=== PATIENT | female | born 1995 | race Caucasian/White ===

== ENCOUNTER → 2018-05-22 07:07 | Outpatient (CLI) | payer OTHER, SELFPAY ==
[2018-05-22 14:31] LABS: Basophils % 0.4 % (0.1-2.0); Eosinophils # 0.1 K/mm3 (0.0-0.4); Eosinophils % 1.2 % (0.1-12.0); Hematocrit 41.4 % (37.0-47.0); Lymphocytes # 1.2 K/mm3 (0.7-4.5); Mean Corpuscular HGB Conc 31.4 g/dL (31.8-35.4); Mean Corpuscular Hemoglobin 26.9 pg (27.0-31.2); Mean Corpuscular Volume 85.9 fl (81-99); Mean Platelet Volume 8.8 fl (7.4-10.4); Monocytes # 0.4 K/mm3 (0.1-1.0); Monocytes % 5.9 % (1.7-9.3); Neutrophils # 4.8 K/mm3 (1.8-7.8); Neutrophils % 73.5 % (37.0-80.0); Platelet Count 226 K/mm3 (142-424); Red Blood Count 4.82 M/mm3 (4.20-5.40); White Blood Count 6.5 K/mm3 (4.8-10.8)
[2018-05-22 14:43] LABS: Alanine Aminotransferase 27 U/L (12-78); Albumin/Globulin Ratio 1.4 (1.1-1.8); Alkaline Phosphatase 86 U/L (46-116); Anion Gap 13.6 mEq/L (5-15); Aspartate Amino Transferase 13 U/L (15-37); Bilirubin,Total 0.3 mg/dL (0.2-1.0); Blood Urea Nitrogen 9 mg/dL (7-18); Calcium 8.6 mg/dL (8.5-10.1); Carbon Dioxide 27 mmol/L (21.0-32.0); Chloride 105 mmol/L (98-107); Chol/HDL Ratio 3.3 (1-3.5); Cholesterol 143 mg/dL (140-200); Creatinine,Serum 0.65 mg/dL (0.55-1.02); Estimated Glomerular Filt Rate 114 ml/min (>60); Free Thyroxine Index 2.5 ug/dL (5.93-13.13); GFR (African American) 138 ML/MIN (>60); Globulin 2.9 gm/dl (1.3-3.2); Glucose 90 mg/dL (74-106); HDL Cholesterol 43 mg/dL (29-89); LDL Cholesterol 83 mg/dL (0-130); Potassium 3.6 mmoL/L (3.5-5.1); Sodium 142 mmol/L (136-145); T4 (Thyroxine) 7.7 ug/dl (4.7-13.3); Total Protein,Serum 6.9 gm/dL (6.4-8.2); Triglycerides 85 mg/dL (30-200); Triiodothryronine (T3) Uptake 32 % (31-39); VLDL Cholesterol 17 mg/dL (0-40)
[2018-05-22 15:13] LABS: Thyroid Stimulating Hormone 2.42 uIU/ml (0.358-3.740)
[2018-05-22 17:34] LABS: Hemoglobin A1C 5.4 % (0.0-7.0)
[2018-05-23 18:43] LABS: LH 5.4 mIU/mL (.)
[2018-05-23 18:44] LABS: FSH 4.7 mIU/mL (.); Vitamin B12 352 pg/mL (232-1245); Vitamin D 25 Hydroxy 12.5 ng/mL (30.0-100.0)
== END ==
PROVIDERS: PCP Internal Medicine Adolescent Medicine; Visit Provider Internal Medicine Adolescent Medicine
DX: Z00.00 Encounter for general adult medical examination without abnormal findings (principal); G44.019 Episodic cluster headache, not intractable; H53.2 Diplopia; R73.9 Hyperglycemia, unspecified
CPT/HCPCS: 36415; 80053; 80061; 82607; 82652; 83001; 83002; 83036; 84436; 84443; 84479; 85025

== ENCOUNTER → 2018-09-22 08:47 | Outpatient (POV) | payer OTHER, SELFPAY | PROVIDERS: Visit Provider Dermatology | DX: Z00.00 Encounter for general adult medical examination without abnormal findings (principal) ==

== ENCOUNTER → 2019-04-28 07:06 | Outpatient (CLI) | payer OTHER, SELFPAY ==
[2019-04-28 13:47] LABS: HCG Qualitative, Serum Negative (Negative)
[2019-04-28 13:54] LABS: Basophils % 0.5 % (0.1-2.0); Eosinophils # 0.1 K/mm3 (0.0-0.4); Eosinophils % 1.7 % (0.1-12.0); Hematocrit 39.6 % (37.0-47.0); Hemoglobin 12.1 g/dL (12.2-16.2); Lymphocytes # 2.1 K/mm3 (0.7-4.5); Mean Corpuscular HGB Conc 30.5 g/dL (31.8-35.4); Mean Corpuscular Hemoglobin 26.3 pg (27.0-31.2); Mean Platelet Volume 8.6 fl (7.4-10.4); Monocytes # 0.4 K/mm3 (0.1-1.0); Monocytes % 5.6 % (1.7-9.3); Neutrophils # 4.5 K/mm3 (1.8-7.8); Neutrophils % 63.1 % (37.0-80.0); Platelet Count 237 K/mm3 (142-424); Red Blood Count 4.61 M/mm3 (4.20-5.40); Red Cell Distribution Width 13.8 % (11.5-17.5); White Blood Count 7.1 K/mm3 (4.8-10.8)
[2019-04-28 14:22] LABS: Alanine Aminotransferase 11 U/L (12-78); Albumin Level 3.4 gm/dL (3.4-5.0); Albumin/Globulin Ratio 1.1 (1.1-1.8); Alkaline Phosphatase 84 U/L (46-116); Aspartate Amino Transferase 3 U/L (15-37); Bilirubin,Total 0.2 mg/dL (0.2-1.0); Blood Urea Nitrogen 8 mg/dL (7-18); Calcium 8.4 mg/dL (8.5-10.1); Carbon Dioxide 25 mmol/L (21.0-32.0); Chloride 104 mmol/L (98-107); Chol/HDL Ratio 3.4 (1-3.5); Cholesterol 161 mg/dL (140-200); Creatinine,Serum 0.62 mg/dL (0.55-1.02); Estimated Glomerular Filt Rate 119 ml/min (>60); Free Thyroxine Index 3.1 ug/dL (5.93-13.13); GFR (African American) 144 ML/MIN (>60); Globulin 3.1 gm/dl (1.3-3.2); Glucose 86 mg/dL (74-106); HDL Cholesterol 48 mg/dL (29-89); LDL Cholesterol 86 mg/dL (0-130); Sodium 139 mmol/L (136-145); T4 (Thyroxine) 11.9 ug/dl (4.7-13.3); Thyroid Stimulating Hormone 5.58 uIU/ml (0.358-3.740); Total Protein,Serum 6.5 gm/dL (6.4-8.2); Triglycerides 135 mg/dL (30-200); Triiodothryronine (T3) Uptake 26 % (31-39); VLDL Cholesterol 27 mg/dL (0-40)
[2019-04-28 14:49] LABS: Hemoglobin A1C 5.4 % (0.0-7.0)
[2019-04-29 14:28] LABS: FSH 2.5 mIU/mL (.); LH 5.2 mIU/mL (.)
[2019-05-01 18:56] LABS: Testosterone,Free 2.7 pg/mL (0.0-4.2)
== END ==
PROVIDERS: PCP Internal Medicine Adolescent Medicine; Visit Provider Internal Medicine Adolescent Medicine
DX: N93.8 Other specified abnormal uterine and vaginal bleeding (principal); N92.1 Excessive and frequent menstruation with irregular cycle; R73.9 Hyperglycemia, unspecified
CPT/HCPCS: 36415; 80053; 80061; 83001; 83002; 83036; 84402; 84403; 84436; 84443; 84479; 84703; 85025

== ENCOUNTER → 2019-07-20 10:01 | Outpatient (CLI) | payer OTHER, SELFPAY ==
[2019-07-20 14:07] LABS: Basophils # 0.1 K/mm3 (0-0.2); Basophils % 0.5 % (0.1-2.0); Eosinophils # 0.1 K/mm3 (0.0-0.4); Eosinophils % 1.1 % (0.1-12.0); Hematocrit 40.3 % (37.0-47.0); Hemoglobin 13.2 g/dL (12.2-16.2); Lymphocytes # 1.8 K/mm3 (0.7-4.5); Lymphocytes % 21.5 % (10-50); Mean Corpuscular HGB Conc 32.8 g/dL (31.8-35.4); Mean Corpuscular Hemoglobin 27.8 pg (27.0-31.2); Mean Corpuscular Volume 84.7 fl (81-99); Mean Platelet Volume 8.4 fl (7.4-10.4); Monocytes # 0.4 K/mm3 (0.1-1.0); Monocytes % 4.6 % (1.7-9.3); Neutrophils # 6.1 K/mm3 (1.8-7.8); Neutrophils % 72.4 % (37.0-80.0); Platelet Count 250 K/mm3 (142-424); Red Blood Count 4.76 M/mm3 (4.20-5.40); Red Cell Distribution Width 13.3 % (11.5-17.5); White Blood Count 8.4 K/mm3 (4.8-10.8)
[2019-07-20 14:08] LABS: Alanine Aminotransferase 13 U/L (12-78); Albumin Level 3.7 gm/dL (3.4-5.0); Albumin/Globulin Ratio 1.2 (1.1-1.8); Alkaline Phosphatase 86 U/L (46-116); Anion Gap 16.8 mEq/L (5-15); Aspartate Amino Transferase 6 U/L (15-37); Bilirubin,Total 0.3 mg/dL (0.2-1.0); Blood Urea Nitrogen 6 mg/dL (7-18); Calcium 8.5 mg/dL (8.5-10.1); Carbon Dioxide 23 mmol/L (21.0-32.0); Chloride 104 mmol/L (98-107); Creatinine,Serum 0.59 mg/dL (0.55-1.02); Estimated Glomerular Filt Rate 126 ml/min (>60); Free Thyroxine Index 3.9 ug/dL (5.93-13.13); GFR (African American) 153 ML/MIN (>60); Globulin 3.1 gm/dl (1.3-3.2); Glucose 86 mg/dL (74-106); Potassium 3.8 mmoL/L (3.5-5.1); Sodium 140 mmol/L (136-145); T4 (Thyroxine) 13.4 ug/dl (4.7-13.3); Thyroid Stimulating Hormone 1.65 uIU/ml (0.358-3.740); Total Protein,Serum 6.8 gm/dL (6.4-8.2); Triiodothryronine (T3) Uptake 29 % (31-39)
== END ==
PROVIDERS: Visit Provider Internal Medicine Adolescent Medicine
DX: N92.1 Excessive and frequent menstruation with irregular cycle (principal); E03.9 Hypothyroidism, unspecified
CPT/HCPCS: 36415; 80053; 84436; 84443; 84479; 85025

== ENCOUNTER → 2021-06-21 11:32 | Outpatient (CLI) | payer BC, SELFPAY ==
[2021-06-21 12:02] LABS: Basophils # 0.1 K/mm3 (0-0.2); Basophils % 0.8 % (0.1-2.0); Eosinophils # 0.1 K/mm3 (0.0-0.4); Eosinophils % 0.8 % (0.1-12.0); Hematocrit 40.7 % (37.0-47.0); Hemoglobin 12.8 g/dL (12.2-16.2); Lymphocytes # 1.7 K/mm3 (0.7-4.5); Lymphocytes % 16.6 % (10-50); Mean Corpuscular HGB Conc 31.6 g/dL (31.8-35.4); Mean Corpuscular Hemoglobin 26.5 pg (27.0-31.2); Mean Corpuscular Volume 83.9 fl (81-99); Mean Platelet Volume 10.3 fl (7.4-10.4); Monocytes # 0.5 K/mm3 (0.1-1.0); Monocytes % 4.8 % (1.7-9.3); Platelet Count 274 K/mm3 (142-424); Red Blood Count 4.85 M/mm3 (4.20-5.40); Red Cell Distribution Width 14.5 % (11.5-17.5); White Blood Count 10.4 K/mm3 (4.8-10.8)
[2021-06-21 12:23] LABS: Alanine Aminotransferase 8 U/L (12-78); Albumin Level 4.4 g/dl (3.5-5.0); Albumin/Globulin Ratio 1.8 (1.1-1.8); Alkaline Phosphatase 107 U/L (38-126); Anion Gap 11.3 mEq/L (5-15); Aspartate Amino Transferase 19 U/L (14-36); Bilirubin,Total 0.3 mg/dl (0.2-1.3); Blood Urea Nitrogen 9 mg/dl (7-17); Calcium 9.1 mg/dl (8.4-10.2); Carbon Dioxide 27 mmol/L (22.0-30.0); Chloride 105 mmol/L (98-107); Estimated Glomerular Filt Rate 102 ml/min (>60); GFR (African American) 123 ML/MIN (>60); Globulin 2.4 g/dL (1.3-3.2); Glucose 96 mg/dl (74-100); Potassium 4.3 mmoL/L (3.5-5.1); Sodium 139 mmol/L (136-145); Total Protein,Serum 6.8 g/dl (6.3-8.2)
[2021-06-21 12:39] LABS: Free T4 (Free Thyroxine) 1.16 ng/dl (0.78-2.19)
[2021-06-21 12:53] LABS: Thyroid Stimulating Hormone 1.59 uIU/mL (0.465-4.68)
== END ==
PROVIDERS: Visit Provider Nurse Practitioner Family
DX: E03.9 Hypothyroidism, unspecified (principal); F53.0 Postpartum depression
CPT/HCPCS: 80053; 84439; 84443; 85025

== ENCOUNTER 2021-08-13 18:50 | Emergency (ER) | payer BC, SELFPAY ==
[2021-08-13 18:52] VITALS: RESP 18; TEMP 36.6; O2SAT 99; BMI 36.5
--- NOTE | 2021-08-13 19:04 | [facility].EDGENADL ---
ED Disposition Condition on Discharge: Good - Critical Care Critical Care Time: No <Antolin Carey - Last Filed: 08/13/21 19:51> <Octavio Barnett - Last Filed: 08/13/21 19:56> Clinical Impression: Gastroenteritis Disposition: Still a Patient Referrals: Seth Grimaldo MD [Primary Care Provider] - Attestation: On 08/13/21, the high probability of a clinically significant, sudden or life threatening deterioration of the following system(s) required my full and direct attention, intervention and personal management. The time I documented below is in addition to time spent performing reported procedures but includes the following listed in this critical care notation. Medical Decision Making - Brent Inquiry Pt receiving controlled substance: No - Lab Data Result diagrams: 08/13/21 19:05 08/13/21 19:05 <Antolin Carey - Last Filed: 08/13/21 19:51> - Lab Data Result diagrams: 08/13/21 19:05 08/13/21 19:05 <Octavio Barnett - Last Filed: 08/13/21 19:56> Vital Signs: 08/13/21 18:52 Temperature 97.8 F Temperature Source Oral Respiratory Rate 18 02 Sat by Pulse Oximetry 99 Oxygen Delivery Method Room Air - Lab Data Lab Results 08/13/21 19:05: WBC 21.0 H*, RBC 5.63 H, Hgb 14.7, Hct 44.8, MCV 79.5 L, MCH 26.1 L, MCHC 32.8, RDW 15.0, Plt Count 307, MPV 8.6, Neut % (Auto) 92.2 H, Lymph % (Auto) 3.6 L, [place] % (Auto) 3.5, Eos % (Auto) 0.2, Baso % (Auto) 0.5, Neut # (Auto) 19.3 H, Lymph # (Auto) 0.8, [place] # (Auto) 0.7, Eos # (Auto) 0.1, Baso # (Auto) 0.1 08/13/21 19:05: Sodium 137, Potassium 3.9, Chloride 104, Carbon Dioxide 19 L, Anion Gap 17.9 H, BUN 13, Creatinine 0.60, Estimated Creat Clear 246, Estimated GFR 122, Est GFR ( Amer) 147, Glucose 147 H, Calcium 9.5, Total Bilirubin 0.5, AST 24, ALT 20, Alkaline Phosphatase 115, Total Protein 7.9, Albumin 5.0, Globulin 2.9, Albumin/Globulin Ratio 1.7 Orders (Tests/Meds): ED MEDICATIONS Generic Name Dose Route Start Last Admin Trade Name Daltonq PRN Reason Stop Dose Admin Sodium Chloride 1,000 mls @ 999 mls/hr 08/13/21 19:15 08/13/21 19:07 Sod Chlor 0.9% 1000ml Bag IV 08/13/21 20:15 999 mls/hr .Q1H1M CHARLIE Administration Sodium Chloride 1,000 mls @ 999 mls/hr 08/13/21 19:45 Sod Chlor 0.9% 1000ml Bag IV 08/13/21 20:45 .Q1H1M CHARLIE Sodium Chloride 10 ml 08/13/21 19:01 Sodium Chloride 0.9% 10ml Flush Syringe IV 08/14/21 07:01 NEEDED PRN Maintain IV Site Sodium Chloride 10 ml 08/13/21 19:36 Sodium Chloride 0.9% 10ml Flush Syringe IV 08/14/21 07:36 NEEDED PRN Maintain IV Site Discontinued Medications Generic Name Dose Route Start Last Admin Trade Name Freq PRN Reason Stop Dose Admin Metoclopramide HCl 10 mg 08/13/21 19:00 08/13/21 19:08 Metoclopramide Hcl 10mg/2ml Vial IVP 08/13/21 19:01 10 mg ONCE ONE Administration Ondansetron HCl 8 mg 08/13/21 18:59 08/13/21 19:08 Ondansetron 4mg/2ml Vial IV 08/13/21 19:00 8 mg ONCE ONE Administration ORDERS Category Date Time Status CBC w/Auto Diff [Complete Blood Count Auto Diff] Stat Lab 08/13/21 19:05 Results Covid-19 Nasal PCR ([facility]) Routine Lab 08/13/21 19:01 Ordered Lactic Acid Stat Lab 08/13/21 19:38 Received Urinalysis-Acute [Urinalysis and Microscopic] Stat Lab 08/13/21 19:27 Received General Adult HPI - General Mode of Arrival: Ambulatory Source of Information: Patient - History of Present Illness Onset (ago): hour(s) Radiation: non-radiation Severity: moderate Consistency: constant, intermittent Relieving factors: none Exacerbating factors: eating Associated symptoms: denies other symptoms <Antolin Carey - Last Filed: 08/13/21 19:51> <Octavio Barnett - Last Filed: 08/13/21 19:56> - General Stated complaint: vomiting,weak Time Seen by Provider: 08/13/21 19:04 - History of Present Illness HPI narrative: n/v/d (Antolin Carey) - Related Data Home
[2021-08-13 19:13] LABS: Basophils # 0.1 K/mm3 (0-0.2); Basophils % 0.5 % (0.1-2.0); Eosinophils # 0.1 K/mm3 (0.0-0.4); Eosinophils % 0.2 % (0.1-12.0); Hematocrit 44.8 % (37.0-47.0); Hemoglobin 14.7 g/dL (12.2-16.2); Lymphocytes # 0.8 K/mm3 (0.7-4.5); Lymphocytes % 3.6 % (10-50); Mean Corpuscular HGB Conc 32.8 g/dL (31.8-35.4); Mean Corpuscular Hemoglobin 26.1 pg (27.0-31.2); Mean Corpuscular Volume 79.5 fl (81-99); Mean Platelet Volume 8.6 fl (7.4-10.4); Monocytes # 0.7 K/mm3 (0.1-1.0); Monocytes % 3.5 % (1.7-9.3); Neutrophils # 19.3 K/mm3 (1.8-7.8); Neutrophils % 92.2 % (37.0-80.0); Platelet Count 307 K/mm3 (142-424); Red Blood Count 5.63 M/mm3 (4.20-5.40)
[2021-08-13 19:24] VITALS: BP 103/70; PULSE 104; RESP 18; O2SAT 98
[2021-08-13 19:25] LABS: MANUAL DIFFERENTIAL MANUAL DIFFERENTIAL (MANUAL DIFF)
[2021-08-13 19:34] LABS: Alanine Aminotransferase 20 U/L (12-78); Albumin/Globulin Ratio 1.7 (1.1-1.8); Alkaline Phosphatase 115 U/L (38-126); Anion Gap 17.9 mEq/L (5-15); Aspartate Amino Transferase 24 U/L (14-36); Bilirubin,Total 0.5 mg/dl (0.2-1.3); Blood Urea Nitrogen 13 mg/dl (7-17); Calcium 9.5 mg/dl (8.4-10.2); Carbon Dioxide 19 mmol/L (22.0-30.0); Chloride 104 mmol/L (98-107); Creatinine Clearance Estimated 246 mL/min (50-200); Estimated Glomerular Filt Rate 122 ml/min (>60); GFR (African American) 147 ML/MIN (>60); Globulin 2.9 g/dL (1.3-3.2); Glucose 147 mg/dl (74-100); Potassium 3.9 mmoL/L (3.5-5.1); Sodium 137 mmol/L (136-145); Total Protein,Serum 7.9 g/dl (6.3-8.2)
[2021-08-13 19:49] LABS: Microscopic, Urine URINE MICROSCOPIC (MICROSCOPIC)
[2021-08-13 19:58] LABS: Lactic Acid 1.3 mmol/L (0.7-2.1)
[2021-08-13 20:05] LABS: Appearance,Urine CLEAR (Clear); Blood, Urine Negative (Negative); Color,Urine YELLOW (Yellow); Glucose,Urine (UA) Negative (Negative); Ketones,Urine Negative (Negative); Leukocyte Esterase,Urine Negative (Negative); Nitrate,Urine Negative (Negative); PH,Urine 5.5 (5.0-8.5); Protein,Urine 1+ (Negative); Specific Gravity, Urine >= 1.030 (1.005-1.030); Urobilinogen,Urine 0.2 EU/dl (0.2)
[2021-08-13 20:08] LABS: Bilirubin,Urine Negative (Negative)
[2021-08-13 20:13] LABS: Bacteria,Urine 1+ /lpf
[2021-08-13 20:26] LABS: Lymphocytes % 6 % (10-50); Microcytosis 1+; Monocytes % 7 % (2-9); Neutrophils % 86 % (42-76); Platelet Estimate Normal; Spherocytes 1+; Total Cells Counted 100
[2021-08-13 21:44] VITALS: BP 123/87; PULSE 103; RESP 18; TEMP 36.9; O2SAT 96
[2021-08-13 21:59] VITALS: BP 124/83; PULSE 91; RESP 17; TEMP 36.8
== END 2021-08-13 22:03 | disposition still patient (30) ==
PROVIDERS: Emergency Provider Emergency Medicine; PCP Internal Medicine Adolescent Medicine
DX: K52.9 Noninfective gastroenteritis and colitis, unspecified (principal); Z88.2 Allergy status to sulfonamides
CPT/HCPCS: 80053; 81001; 83605; 85007; 85025; 96365; 96366; 96375; 99282; J2405

== ENCOUNTER → 2022-08-05 15:44 | Outpatient (CLI) | payer BC, SELFPAY ==
[2022-08-05 16:59] LABS: Hemoglobin 12.2 g/dL (12.2-16.2); Mean Corpuscular HGB Conc 33.8 g/dL (31.8-35.4); Mean Corpuscular Hemoglobin 28.6 pg (27.0-31.2); Mean Corpuscular Volume 84.6 fl (81-99); Red Blood Count 4.26 M/mm3 (4.20-5.40); White Blood Count 11.9 K/mm3 (4.8-10.8)
[2022-08-05 17:00] LABS: Basophils # 0.1 K/mm3 (0-0.2); Basophils % 0.4 % (0.1-2.0); Eosinophils % 0.4 % (0.1-12.0); Lymphocytes # 2.1 K/mm3 (0.7-4.5); Lymphocytes % 17.4 % (10-50); Mean Platelet Volume 8.8 fl (7.4-10.4); Monocytes # 0.6 K/mm3 (0.1-1.0); Monocytes % 4.8 % (1.7-9.3); Neutrophils # 9.2 K/mm3 (1.8-7.8); Platelet Count 228 K/mm3 (142-424); Red Cell Distribution Width 14.8 % (11.5-17.5)
[2022-08-05 17:16] LABS: Chloride 103 mmol/L (98-107); Potassium 4.3 mmoL/L (3.5-5.1); Sodium 137 mmol/L (136-145)
[2022-08-05 17:19] LABS: Alanine Aminotransferase 15 U/L (12-78); Albumin/Globulin Ratio 1.5 (1.1-1.8); Alkaline Phosphatase 82 U/L (38-126); Anion Gap 13.3 mEq/L (5-15); Aspartate Amino Transferase 16 U/L (14-36); Bilirubin,Total 0.3 mg/dl (0.2-1.3); Blood Urea Nitrogen 5 mg/dl (7-17); Carbon Dioxide 25 mmol/L (22.0-30.0); Estimated Glomerular Filt Rate 149 ml/min (>60); GFR (African American) 180 ML/MIN (>60); Globulin 2.7 g/dL (1.3-3.2); Glucose 86 mg/dl (74-100); Total Protein,Serum 6.7 g/dl (6.3-8.2)
[2022-08-05 17:20] LABS: Magnesium 1.8 mg/dl (1.6-2.3)
[2022-08-05 17:50] LABS: Thyroid Stimulating Hormone 3.26 uIU/mL (0.465-4.68)
== END ==
PROVIDERS: PCP Internal Medicine Adolescent Medicine; Visit Provider Nurse Practitioner Family
DX: R06.02 Shortness of breath (principal); R00.2 Palpitations; R42 Dizziness and giddiness
CPT/HCPCS: 36415; 80053; 83735; 84443; 85025; 93225; 93226

== ENCOUNTER 2022-10-06 19:28 | Emergency (ER) | payer BC, SELFPAY ==
[2022-10-06 19:45] VITALS: BP 132/87; PULSE 112; RESP 20; TEMP 36.9; O2SAT 97; BMI 38.6
--- NOTE | 2022-10-06 19:56 | EXP.UTC ---
Discharge Plan Disposition Patient Disposition: Home, Self-Care Condition: Good Prescriptions Prescriptions: No Action levothyroxine 75 mcg tablet 75 mcg PO DAILY prenat.vits,pepito,[id number]-jlpm-xwwfn Tablet 1 tab PO DAILY Unisom (doxylamine) 25 mg tablet 25 mg PO HS PRN amoxicillin 500 mg tablet 500 mg PO TID Qty: 30 0RF Referrals Follow up/Referrals: Seth Grimaldo MD [Primary Care Provider] - See instructions Activity Restrictions/Add. Instructions Additional Instructions/Restrictions: No sign of a bacterial infection. Likely viral. Viruses can take 7-14 days to run their course. Nasal saline and bulb syringe or nose Deana to remove nasal drainage to help with nasal congestion. Hard to eat, drink, sleep with nasal congestion so important to keep this cleaned out. Monitor temp. Tylenol or Motrin as needed for pain or fever Encourage fluids, water, Gatorade, Powerade, Pedialyte if /toddler/child Warm salt water gargles Warm fluids Sore throat lozenges Sleep elevated Humidifier/vaporizer Follow-up immediately for new or worsening symptoms or no noticeable improvement over the next 48-72 hours. Clinical Impressions Clinical Impression: Upper respiratory infection Instructions Patient Instructions: DI for Viral Upper Respiratory Infection -- Adult Discharge ED Provider: Stuart ([facility])Neeraj [facility] [place] HPI General Stated complaint: fever body aches Mode of Arrival: Ambulatory Source of Information: Patient Limitations: No Limitations Time Seen by Provider: 10/06/22 19:56 History of Present Illness Provider Complaint: 26 yr old female who is 7 months presnets for sore throat, fever, body aches and chills that started today Related Data Home Medications Medication Instructions Recorded Confirmed doxylamine succinate 25 mg tablet 25 mg PO HS PRN 07/16/22 07/16/22 (Unisom (doxylamine)) levothyroxine 75 mcg tablet 75 mcg PO DAILY 07/16/22 07/16/22 prenat.vits,pepito,kif-wube-ihshe 1 tab PO DAILY 07/16/22 07/16/22 Previous Rx's Medication Instructions Recorded amoxicillin 500 mg tablet 500 mg PO TID #30 tabs 07/16/22 Allergies Allergy/AdvReac Type Severity Reaction Status Date / Time ASA (ASPIRIN) Allergy Mild I-HIVES Uncoded 07/16/22 09:14 SULFA (SULFONAMIDE) Allergy Mild I-HIVES Uncoded 07/16/22 09:14 [facility] Disclaimer: The information contained in this section may have been updated after the patient was seen, as this information can be updated by other users. 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) Smoking Status: Never smoker alcohol intake: never substance use type: denies use current occupational status: employed Travel in the last 8 weeks: None household members: spouse and children housing: house marital status: single ROS Obtained: Yes All systems reviewed & no additional complaints except as documented Constitutional Constitutional: Reports system reviewed and no additional complaints, except as documented, Reports as per HPI, Reports body ache, Reports chills and Reports fever(s) Eyes Eyes: Reports system reviewed and no additional complaints, except as documented ENT Ears, Nose, Mouth, and Throat: Reports system reviewed and no additional complaints, except as documented, Reports as per HPI and Reports sore throat Cardiovascular Cardiovascular: Reports system reviewed and no additional complaints, except as documented Respiratory Respiratory: Reports system reviewed and no additional complaints, except as documented Musculoskeletal Musculoskeletal: Reports system reviewed and no additional complaints, except as documented Integumentary/Breasts Skin/Breast: Report
[2022-10-06 20:07] VITALS: BP 132/87; PULSE 112; RESP 20; TEMP 36.9; O2SAT 97
[2022-10-06 20:08] LABS: UTC Influenza A Antigen Negative (Negative); UTC Strep Screen (Rapid) Negative (Negative)
[2022-10-06 20:09] LABS: UTC Influenza B Antigen Negative (Negative)
[2022-10-06 20:54] LABS: Adenovirus,PCR Not Detected (NotDetected); Bordetella Pertussis Not Detected (NotDetected); Chlamydophila Pneumoniae, PCR Not Detected (NotDetected); Coronavirus 19, PCR Not Detected (NotDetected); Coronavirus 229E Not Detected (NotDetected); Coronavirus NL63 Not Detected (NotDetected); Coronavirus OC43 Not Detected (NotDetected); Coronovirus HKU1,PCR Not Detected (NotDetected); Human Metapneumovirus Not Detected (NotDetected); Influenza A, PCR Not Detected (NotDetected); Influenza AH1, 2009 Not Detected (NotDetected); Influenza AH1, PCR Not Detected (NotDetected); Influenza AH3,PCR Not Detected (NotDetected); Influenza B, PCR Not Detected (NotDetected); Mycoplasma Pneumoniae, PCR Not Detected (NotDetected); Parainfluenza 1, PCR Not Detected (NotDetected); Parainfluenza 2, PCR Not Detected (NotDetected); Parainfluenza 3, PCR Not Detected (NotDetected); Parainfluenza 4, PCR Not Detected (NotDetected); Respiratory Syncytial Virus Not Detected (NotDetected)
[2022-10-07 01:07] LABS: Rhinovirus/Enterovirus Detected (NotDetected)
== END 2022-10-06 20:10 | disposition home or self-care (01) ==
PROVIDERS: Emergency Provider Nurse Practitioner Family; PCP Internal Medicine Adolescent Medicine
DX: O99.513 Diseases of the respiratory system complicating pregnancy, third trimester (principal); J06.9 Acute upper respiratory infection, unspecified; R50.9 Fever, unspecified; B97.89 Other viral agents as the cause of diseases classified elsewhere; Z20.822 Contact with and (suspected) exposure to COVID-19
CPT/HCPCS: 87581; 87632; 87798; 87804; 87880; 99212; 99213; C9803; G0463; U0003; U0005

== ENCOUNTER → 2023-03-26 23:48 | Outpatient (CLI) | payer BC, SELFPAY | PROVIDERS: PCP Internal Medicine Adolescent Medicine; Visit Provider Nurse Practitioner Family | DX: J02.9 Acute pharyngitis, unspecified (principal) | CPT/HCPCS: 87070 ==

== ENCOUNTER 2024-05-21 14:40 | Emergency (ER) | payer BC, SELFPAY ==
[2024-05-21] VITALS (8 sets, daily range): BP systolic 107–129; BP diastolic 77–89; PULSE 84–108; RESP 16; TEMP 36.6; O2SAT 97–100; BMI 31.3
--- NOTE | 2024-05-21 15:00 | PC.NURSE ---
pt triaged at this time with mother. pt agreeable to getting labs drawn at this time to get her workup started. Spoke with Dr. Dunn for verbal orders for this patient. pt and mother satisfied with the plan of care while waiting in the lobby and instructed to inform staff if pt begins to feel any symptoms coming on immediately.
--- NOTE | 2024-05-21 15:32 | ECG_ITS ---
APPROVED REPORT Exam: Resting ECG HR:100 bpm ECG Measurements Heart Rate 100 AXES NH 126 P 56 QRSd 97 QRS 41 QT 333 T 43 QTc 390 Conclusion SINUS TACHYCARDIA ABNORMAL RHYTHM ECG Electronically signed by : JUN MANCUSO, 05/25/2024 15:29:42
--- NOTE | 2024-05-21 15:39 | ED_ITS ---
Discharge Plan Disposition Patient Disposition: Home, Self-Care Condition: Good Prescriptions Prescriptions: No Action levothyroxine 75 mcg tablet 75 mcg PO DAILY Auvelity 45-105 mg tablet, IR and ER, biphasic 1 tab PO DAILY ergocalciferol (vitamin D2) 1,250 mcg (50,000 unit) capsule 50,000 unit PO WEEKLY Patient Comments: TAKE 1 CAPSULE BY MOUTH ONCE A WEEK ondansetron 8 mg tablet,disintegrating 8 mg PO BID PRN (Reason: nausea and vomiting) 7 Days Qty: 14 0RF Referrals Follow up/Referrals: Rowan Kaiser DO [Staff Physician] - See instructions Cindy Wilkins DO [Staff Physician] - See instructions Gilberto Navarrete MD [Staff Physician] - See instructions Seth Grimaldo MD [Primary Care Provider] - See instructions Terrence Wilson MD [Staff Physician] - See instructions Activity Restrictions/Add. Instructions Additional Instructions/Restrictions: You were evaluated in the emergency department today. Please follow-up closely with cardiology for interpretation of your Holter monitor that we are providing you today. It is to be worn for 48 hours. I recommend calling their office Friday morning once they open to see when you can be seen. Let them know that you were evaluated in the emergency department. Please follow-up closely with your primary care provider. Make sure you stay hydrated. I recommend against driving or operating heavy machinery until you have been cleared by outpatient providers. return to the emergency department right away for new or worsening symptoms. For your bleeding and hormonal issues, I recommend close follow-up with gynecology. Please also contact them to schedule an appointment. Clinical Impressions Clinical Impression: Recurrent syncope Stand Alone Forms Stand Alone Forms: Work/School Release Instructions Patient Instructions: DI for Syncope in Adults (Fainting) Print Language Print Language: Brazilian Discharge ED Provider: Jamila Dunn General Adult HPI <KRIS Titus - Last Filed: 05/21/24 16:47> General Chief complaint: Syncope Stated complaint: possible seizures Time Seen by Provider: 05/21/24 16:30 Mode of Arrival: Ambulatory Source of Information: Patient and Parent(s) Limitations: No Limitations Description of Symptoms (Recalled from ER Triage Doc. by RN): pt to the ED after multiple syncopal episodes with LOC. pt stated she doesnt remember these episodes but stated her head will start to feel funny she becomes sluggish feeling and the next thing she will remember is being in the floor. pt reports pain to her left leg and believes she fell on it. pt also report she will feel a heaviness in her head and then a sharp pain. pt was recently started on a medication for depression and saw her provider who instructed her to stop taking it because of the possible side effects. Related Data Home Medications ?Medication ?Instructions ?Recorded ?Confirmed levothyroxine 75 mcg tablet 75 mcg PO DAILY 07/16/22 10/16/23 dextromethorphan IR 45 1 tab PO DAILY 10/16/23 10/16/23 mg-bupropion ER 105 mg biphasic tablet (Auvelity) ergocalciferol (vitamin D2) 1,250 50,000 unit PO WEEKLY 10/16/23 10/16/23 mcg (50,000 unit) capsule Previous Rx's ?Medication ?Instructions ?Recorded ondansetron 8 mg disintegrating 8 mg PO BID PRN nausea and 10/16/23 tablet vomiting 7 days #14 tabs Allergies Allergy/AdvReac Type Severity Reaction Status Date / Time aspirin Allergy Verified 10/16/23 09:17 Sulfa (Sulfonamide Allergy Verified 10/16/23 09:17 Antibiotics) <Jamila Dunn, DO - Last Filed: 05/21/24 19:53> History of Present Illness HPI narrative: This patient is a 28-year-old female with a history of hypothyroidism presenting to the emergency department for evaluation with concern for multiple syncopal episodes. According to the patient's family, she has never had anything like this in the past. It started Friday night with her stating that she generally felt unwell, her head felt floaty, and then she syncopized in her kitchen. She was out for less than 2 minutes with no seizure activity or convulsions. She woke up on her own and seemed to be slightly confused. It took her 10 to 20 minutes to go back to her usual normal self afterward. She had not eaten much that day, so they thought it may be related to that. She went to her primary care provider Friday for this reason and was told to monitor for continued symptoms. while she was at work, she called her mom and stated that she was not feeling well again. Her mom notes that her voice trailed off, and then she heard a thud of her hitting the ground again. She kept talking on the phone until the patient was able to answer, which was may be 30 seconds to a minute. She was slightly confused with slurred speech afterward, but then she did return to her baseline. They thought about coming to the ER last night, however she did not want to miss [id number] with her children. She went to work today, and her mom accompanied her to watch her because she was good to be working by herself. 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 She then passed out again, similar in presentation to previous episodes. No seizure activity, no tongue biting, no loss of bladder or bowel. She notes that she has had some mild headaches, but this is not unusual for her as she frequently deals with headaches. Her only other recent complaint has been menstrual issues which been ongoing for about 6 months. She had had bleeding nearly every day and had been tried on different controls, but she was intolerant of previous control methods. She did have an IUD placed about 2 months ago and initially had a lot of pelvic cramping with this, but that has subsided for the past month. No continued cramping. She has had some continued bleeding, but it has lightened up pretty significantly, as they recently started her out on oral control in addition to the IUD. This is the only change as of late. She has been on medications for about a year for depression, and her PCP called her and told her to stop taking one of them yesterday because they thought that could be causing her symptoms. She notes today is the first day that she skipped a dose. She denies any significant visual disturbance, numbness, tingling, unilateral weakness, chest pain, shortness of breath, significant increase in abdominal cramping, significant increase in vaginal bleeding, urinary symptoms, or other concerns. She notes she is been eating and drinking fine. [facility] <KRIS Titus - Last Filed: 05/21/24 16:47> [facility] Disclaimer: The information contained in this section may have been updated after the patient was seen, as this information can be updated by other users. 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 Hypothyroidism (acquired) Surgical History History of ERCP History of cholecystectomy [place] teeth extracted History of Social History Smoking Status: Never smoker alcohol intake: never substance use type: denies use current occupational status: employed Travel in the last 8 weeks: None household members: spouse and children housing: house marital status: single Other 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 Have you received the Flu Vaccine for this season: No Have you received the Pneumonia Vaccine: No <KRIS Titus - Last Filed: 05/21/24 16:47> ROS Obtained: Yes Systems reviewed as appropriate & no additional complaints except as documented <Jamila Dunn DO - Last Filed: 05/21/24 19:53> ROS Obtained: Yes All systems reviewed & no additional complaints except as documented Physical Exam <KRIS Titus - Last Filed: 05/21/24 16:47> General General appearance: alert and in no apparent distress Head Head exam: atraumatic and normal inspection Eye Eye exam: Present normal appearance, PERRL and EOMI ENT ENT exam: Present normal exam, normal oropharynx and mucous membranes moist Neck Neck exam: Present normal inspection, full ROM and trachea midline; Absent lymphadenopathy Chest Chest inspection: Present normal inspection and symmetric chest wall rise Respiratory Respiratory exam: Present normal lung sounds bilaterally; Absent accessory muscle use Cardiovascular Cardiovascular exam: Present regular rate, normal rhythm, normal heart sounds, +S1 and +S2 Abdominal Exam Abdominal exam: Present soft and normal bowel sounds; Absent tenderness, guarding or rebound Extremities Exam Extremities exam: Present normal inspection and full ROM Neurological Exam Neurological exam: Present alert, oriented X3 and CN II-XII intact Psychiatric Psychiatric exam: Present normal affect and normal mood Skin Skin exam: Present warm, dry and normal color Lymphatic Lymphatic Findings: no adenopathy <Jamila Dunn DO - Last Filed: 05/21/24 19:53> General General appearance: obese Back Exam Back exam: Present normal inspection and full ROM; Absent tenderness Neurological Exam Neurological exam: Absent motor sensory deficit Medical Decision Making <KRIS Titus - Last Filed: 05/21/24 16:47> Medical Records Screening: Per USPSTF and CDC recommendations, given the prevalence of disease in our region, it is our hospital?s policy to screen for HIV and viral Hepatitis for all patients aged 18 and over and those with ongoing risk factors. Vital Signs: 05/21/24 14:41 05/21/24 17:41 05/21/24 17:42 Temperature 97.8 F Temperature Source Oral Pulse Rate 108 H 100 H Pulse Rate [Left Radial] 102 H Pulse Rate [Orthostatic Lying Left] Pulse Rate [Orthostatic Sitting Left] Pulse Rate [Orthostatic Standing Left] Respiratory Rate 16 Blood Pressure 118/80 120/87 Blood Pressure [Orthostatic Lying Left Arm] Blood Pressure [Orthostatic Sitting Left Arm] Blood Pressure [Orthostatic Standing Left Arm] Blood Pressure [Right Arm] 129/80 Blood Pressure Mean [Right Arm] 96 Blood Pressure Source [Right Arm] Automatic Cuff Blood Pressure Position [Right Arm] Sitting 02 Sat by Pulse Oximetry 100 99 100 Oxygen Delivery Method Room Air 05/21/24 17:43 05/21/24 17:46 05/21/24 18:00 Temperature Temperature Source Pulse Rate 102 H 95 H Pulse Rate [Left Radial] Pulse Rate [Orthostatic Lying Left] 84 Pulse Rate [Orthostatic Sitting Left] 100 H Pulse Rate [Orthostatic Standing Left] 101 H Respiratory Rate Blood Pressure 125/89 107/77 L Blood Pressure [Orthostatic Lying Left Arm] 118/80 Blood Pressure [Orthostatic Sitting Left Arm] 120/87 Blood Pressure [Orthostatic Standing Left Arm] 125/89 Blood Pressure [Right Arm] Blood Pressure Mean [Right Arm] Blood Pressure Source [Right Arm] Blood Pressure Position [Right Arm] 02 Sat by Pulse Oximetry 99 97 Oxygen Delivery Method 05/21/24 18:30 Temperature Temperature Source Pulse Rate 88 Pulse Rate [Left Radial] Pulse Rate [Orthostatic Lying Left] Pulse Rate [Orthostatic Sitting Left] Pulse Rate [Orthostatic Standing Left] Respiratory Rate Blood Pressure 122/87 Blood Pressure [Orthostatic Lying Left Arm] Blood Pressure [Orthostatic Sitting Left Arm] Blood Pressure [Orthostatic Standing Left Arm] Blood Pressure [Right Arm] Blood Pressure Mean [Right Arm] Blood Pressure Source [Right Arm] Blood Pressure Position [Right Arm] 02 Sat by Pulse Oximetry 97 Oxygen Delivery Method Lab Data Lab Results 05/21/24 15:20: WBC 9.5, RBC 4.86, Hgb 14.1, Hct 41.4, MCV 85.3, MCH 29.1, MCHC 34.1, RDW 13.6, Plt Count 241, MPV 8.6, Neut % (Auto) 74.2, Lymph % (Auto) 20.5, [place] % (Auto) 4.1, Eos % (Auto) 0.3, Baso % (Auto) 0.9, Neut # (Auto) 7.0, Lymph # (Auto) 1.9, [place] # (Auto) 0.4, Eos # (Auto) 0.0, Baso # (Auto) 0.1, Sodium 141, Potassium 3.6, Chloride 103, Carbon Dioxide 30, Anion Gap 11.6, BUN 8, Creatinine 0.60, Estimated Creat Clear 206, Estimated GFR 119, Est GFR ( Amer) 144, Glucose 140 H, Calcium 9.2, Magnesium 2.0, Total Bilirubin 0.5, AST 22, ALT 21, Alkaline Phosphatase 61, Troponin I < 0.01, Total Protein 7.5, Albumin 4.8, Globulin 2.7, Albumin/Globulin Ratio 1.8, TSH 1.77, Thyroxine (T4) 9.0, Serum HCG, Qual Negative 05/21/24 17:40: Urine Color Yellow, Urine Appearance Clear, Urine pH 8.0, Ur Specific [place] 1.015, Urine Protein Negative, Urine Glucose (UA) Negative, Urine Ketones Negative, Urine Blood Negative, Urine Nitrate Negative, Urine Bilirubin Negative, Urine Urobilinogen 0.2, Ur Leukocyte Esterase Trace, Urine RBC 3-5, Urine WBC 20-50, Ur Squamous Epith Cells 10-20, Urine Bacteria 2+, Urine Mucus 4+, Urine HCG, Qual Negative 05/21/24 19:05: Troponin I < 0.01 05/21/24 15:20 05/21/24 15:20 Orders (Tests/Meds): ED MEDICATIONS Generic Name Dose Route Start Last Admin Trade Name Freq PRN Reason Stop Dose Admin Sodium Chloride 10 ml 05/21/24 15:57 Sodium Chloride 0.9% 10ml Flush Syringe IV 06/20/24 15:56 NEEDED PRN Maintain IV Site Discontinued Medications Generic Name Dose Route Start Last Admin Trade Name Freq PRN Reason Stop Dose Admin Sodium Chloride 1,000 mls @ 999 mls/hr 05/21/24 18:05 05/21/24 18:22 Sod Chlor 0.9% 1000ml Bag IV 05/21/24 19:05 999 mls/hr .Q1H1M ONE Administration Iopamidol 160 ml 05/21/24 17:08 05/21/24 17:12 Iopamidol-370 (76%);100ml Bottle IV 05/21/24 17:09 160 ml ONCE ONE Administration Sodium Chloride 100 ml 05/21/24 17:08 05/21/24 17:11 0.9 % Sodium Chloride 50 Ml Vial IV 05/21/24 17:09 100 ml ONCE ONE Administration Sodium Chloride 10 ml 05/21/24 17:08 05/21/24 17:12 Sodium Chloride 0.9% 10ml Syr (Rad Only) IV 05/21/24 17:09 10 ml ONCE ONE Administration ORDERS Category Date Time Status CT angio chest PE protocol Stat Cat Scan 05/21/24 16:[address] angio head Stat Cat Scan 05/21/24 16:[address] angio neck Stat Cat Scan 05/21/24 16:[address] head/brain wo con Stat Cat Scan 05/21/24 16:46 Completed POCUS Point of Care (ER Only) Stat Exams 05/21/24 18:11 Ordered XR chest 2V Stat Exams 05/21/24 15:57 Completed Complete Blood Count Auto Diff Stat Lab 05/21/24 15:20 Completed Comprehensive Metabolic Panel Stat Lab 05/21/24 15:20 Completed MAG [Magnesium] Stat Lab 05/21/24 15:20 Completed Serum [HCG Qualitative, Serum] Stat Lab 05/21/24 15:20 Completed T4 (Thyroxine) Stat Lab 05/21/24 15:20 Completed TSH [Thyroid Stimulating Hormone] Stat Lab 05/21/24 15:20 Completed Troponin I Q3H Lab 05/21/24 19:05 Completed Troponin I Q3H Lab 05/21/24 22:00 Ordered Troponin I Stat Lab 05/21/24 15:20 Completed Urinalysis and Microscopic Stat Lab 05/21/24 17:40 Completed Urine , HCG Qual. Stat Lab 05/21/24 17:40 Completed Urine Culture Stat Micro 05/21/24 17:40 Received ECG holter initial pfn Stat Y 05/21/24 18:10 Completed Medical Decision Narrative: In summary patient is a [age, sex] who presents to the emergency department for evaluation of [complaint]. Patient is [hemodynamically stable/unstable] upon arrival, [febrile/afebrile]. [Unremarkable physical exam, nonfocal exam versus focal remarkable exam]. Differential diagnosis includes [DDx]. Initial workup will be conducted with [hematologic labs, imaging, respiratory swab, describe workup]. Initial interventions include [crystalloid bolus, medications, p.o. challenge, etc.] initial workup reviewed by me [hematologic labs are remarkable for... Imaging remarkable for... Urinalysis remarkable for]. Upon repeat evaluation [patient had acceptable resolution of symptoms, had persistent pain for which additional interventions were conducted (describe interventions), tolerated p.o., was ambulatory, etc.]. Given this [patient is appropriate for discharge at this time and will be discharged with a prescription for... The case was discussed with hospital medicine regarding management and they will admit the patient their service for continued evaluation at this time... Etc.] Places where you can increase complexity: I informally interpreted the patient's chest x-ray or CT read and is remarkable for... Documenting what the dealer support technician shows with rate and rhythm Consideration of test but deferring. Ex: I considered chest x-ray on this patient however given that they have no oxygen requirement and are clear to auscultation all lung abel will be deferred. Social determinants of health: Given that patient is undomiciled increases complexity. Given that patient has polysubstance abuse compounds all aspects of care <Jmaila Dunn, DO - Last Filed: 05/21/24 19:53> Medical Records Medical records reviewed: Yes I reviewed the patient's medical records. Brent Inquiry Pt receiving controlled substance: No Vital Signs: 05/21/24 14:41 05/21/24 17:41 05/21/24 17:42 Temperature 97.8 F Temperature Source Oral Pulse Rate 108 H 100 H Pulse Rate [Left Radial] 102 H Pulse Rate [Orthostatic Lying Left] Pulse Rate [Orthostatic Sitting Left] Pulse Rate [Orthostatic Standing Left] Respiratory Rate 16 Blood Pressure 118/80 120/87 Blood Pressure [Orthostatic Lying Left Arm] Blood Pressure [Orthostatic Sitting Left Arm] Blood Pressure [Orthostatic Standing Left Arm] Blood Pressure [Right Arm] 129/80 Blood Pressure Mean [Right Arm] 96 Blood Pressure Source [Right Arm] Automatic Cuff Blood Pressure Position [Right Arm] Sitting 02 Sat by Pulse Oximetry 100 99 100 Oxygen Delivery Method Room Air 05/21/24 17:43 05/21/24 17:46 05/21/24 18:00 Temperature Temperature Source Pulse Rate 102 H 95 H Pulse Rate [Left Radial] Pulse Rate [Orthostatic Lying Left] 84 Pulse Rate [Orthostatic Sitting Left] 100 H Pulse Rate [Orthostatic Standing Left] 101 H Respiratory Rate Blood Pressure 125/89 107/77 L Blood Pressure [Orthostatic Lying Left Arm] 118/80 Blood Pressure [Orthostatic Sitting Left Arm] 120/87 Blood Pressure [Orthostatic Standing Left Arm] 125/89 Blood Pressure [Right Arm] Blood Pressure Mean [Right Arm] Blood Pressure Source [Right Arm] Blood Pressure Position [Right Arm] 02 Sat by Pulse Oximetry 99 97 Oxygen Delivery Method 05/21/24 18:30 Temperature Temperature Source Pulse Rate 88 Pulse Rate [Left Radial] Pulse Rate [Orthostatic Lying Left] Pulse Rate [Orthostatic Sitting Left] Pulse Rate [Orthostatic Standing Left] Respiratory Rate Blood Pressure 122/87 Blood Pressure [Orthostatic Lying Left Arm] Blood Pressure [Orthostatic Sitting Left Arm] Blood Pressure [Orthostatic Standing Left Arm] Blood Pressure [Right Arm] Blood Pressure Mean [Right Arm] Blood Pressure Source [Right Arm] Blood Pressure Position [Right Arm] 02 Sat by Pulse Oximetry 97 Oxygen Delivery Method Lab Data Lab results reviewed: Yes I reviewed the patient's lab results. Lab Results 05/21/24 15:20: WBC 9.5, RBC 4.86, Hgb 14.1, Hct 41.4, MCV 85.3, MCH 29.1, MCHC 34.1, RDW 13.6, Plt Count 241, MPV 8.6, Neut % (Auto) 74.2, Lymph % (Auto) 20.5, [place] % (Auto) 4.1, Eos % (Auto) 0.3, Baso % (Auto) 0.9, Neut # (Auto) 7.0, Lymph # (Auto) 1.9, [place] # (Auto) 0.4, Eos # (Auto) 0.0, Baso # (Auto) 0.1, Sodium 141, Potassium 3.6, Chloride 103, Carbon Dioxide 30, Anion Gap 11.6, BUN 8, Creatinine 0.60, Estimated Creat Clear 206, Estimated GFR 119, Est GFR ( Amer) 144, Glucose 140 H, Calcium 9.2, Magnesium 2.0, Total Bilirubin 0.5, AST 22, ALT 21, Alkaline Phosphatase 61, Troponin I < 0.01, Total Protein 7.5, Albumin 4.8, Globulin 2.7, Albumin/Globulin Ratio 1.8, TSH 1.77, Thyroxine (T4) 9.0, Serum HCG, Qual Negative 05/21/24 17:40: Urine Color Yellow, Urine Appearance Clear, Urine pH 8.0, Ur Specific [place] 1.015, Urine Protein Negative, Urine Glucose (UA) Negative, Urine Ketones Negative, Urine Blood Negative, Urine Nitrate Negative, Urine Bilirubin Negative, Urine Urobilinogen 0.2, Ur Leukocyte Esterase Trace, Urine RBC 3-5, Urine WBC 20-50, Ur Squamous Epith Cells 10-20, Urine Bacteria 2+, Urine Mucus 4+, Urine HCG, Qual Negative 05/21/24 19:05: Troponin I < 0.01 Orders (Tests/Meds): ED MEDICATIONS Generic Name Dose Route Start Last Admin Trade Name Freq PRN Reason Stop Dose Admin Sodium Chloride 10 ml 05/21/24 15:57 Sodium Chloride 0.9% 10ml Flush Syringe IV 06/20/24 15:56 NEEDED PRN Maintain IV Site Discontinued Medications Generic Name Dose Route Start Last Admin Trade Name Freq PRN Reason Stop Dose Admin Sodium Chloride 1,000 mls @ 999 mls/hr 05/21/24 18:05 05/21/24 18:22 Sod Chlor 0.9% 1000ml Bag IV 05/21/24 19:05 999 mls/hr .Q1H1M ONE Administration Iopamidol 160 ml 05/21/24 17:08 05/21/24 17:12 Iopamidol-370 (76%);100ml Bottle IV 05/21/24 17:09 160 ml ONCE ONE Administration Sodium Chloride 100 ml 05/21/24 17:08 05/21/24 17:11 0.9 % Sodium Chloride 50 Ml Vial IV 05/21/24 17:09 100 ml ONCE ONE Administration Sodium Chloride 10 ml 05/21/24 17:08 05/21/24 17:12 Sodium Chloride 0.9% 10ml Syr (Rad Only) IV 05/21/24 17:09 10 ml ONCE ONE Administration ORDERS Category Date Time Status CT angio chest PE protocol Stat Cat Scan 05/21/24 16:[address] angio head Stat Cat Scan 05/21/24 16:[address] angio neck Stat Cat Scan 05/21/24 16:[address] head/brain wo con Stat Cat Scan 05/21/24 16:46 Completed POCUS Point of Care (ER Only) Stat Exams 05/21/24 18:11 Ordered XR chest 2V Stat Exams 05/21/24 15:57 Completed Complete Blood Count Auto Diff Stat Lab 05/21/24 15:20 Completed Comprehensive Metabolic Panel Stat Lab 05/21/24 15:20 Completed MAG [Magnesium] Stat Lab 05/21/24 15:20 Completed Serum [HCG Qualitative, Serum] Stat Lab 05/21/24 15:20 Completed T4 (Thyroxine) Stat Lab 05/21/24 15:20 Completed TSH [Thyroid Stimulating Hormone] Stat Lab 05/21/24 15:20 Completed Troponin I Q3H Lab 05/21/24 19:05 Completed Troponin I Q3H Lab 05/21/24 22:00 Ordered Troponin I Stat Lab 05/21/24 15:20 Completed Urinalysis and Microscopic Stat Lab 05/21/24 17:40 Completed Urine , HCG Qual. Stat Lab 05/21/24 17:40 Completed Urine Culture Stat Micro 05/21/24 17:40 Received ECG holter initial pfn Stat Y 05/21/24 18:10 Completed ECG Data Tracing #1: I reviewed this ECG and interpreted as documented below: Sinus tachycardia with a ventricular rate of [address] changes concerning for ischemia. Normal axis and intervals. ECG initial impression date: 05/21/24 ECG initial impression time: 15:39 Medical Decision Narrative: In summary, this patient is a 28-year-old female presenting to the Emergency Department for evaluation of recurrent syncopal episodes. Otherwise, her only issue as of late has been headaches and persistent vaginal bleeding, but she notes the vaginal bleeding and cramping are actually improving. Differential diagnoses considered include but are not limited to ACS, dysrhythmia, POTS, PE, vasovagal syncope, orthostatic hypotension, dehydration, electrolyte derangements, intracranial hemorrhage, intracranial mass. Ruling out the most morbid conditions drove assessment. It should be noted patient's history includes hypothyroidism which may or may not be at goal therapy. This complicates all aspects of care by increasing patient's risk for morbidity. On exam, the patient is sitting upright in bed in no acute distress with normal vital signs on cardiac telemetry except for mild tachycardia. Workup included broad lab evaluation to evaluate for infectious, metabolic, cardiac causes of her symptoms. Also obtain CT head without contrast, CT angiograms head and neck, and CT angiogram PE protocol to help exclude life-threatening causes of the patient's recurrent syncope. I considered obtaining abdominal imaging, however the patient currently has no abdominal complaints, as she states that her pelvic cramping and bleeding have actually significantly improved and she is already being followed outpatient for this. I independently interpreted CT scans prior to the radiologist read and noted no PE, no dissection, no obvious space-occupying lesion in the brain. Please see their read for final interpretation. Scans normal per radiology read. Labs were obtained that demonstrated normal CBC, normal chemistry, normal thyroid studies, negative troponins x 2. Orthostatic vital signs obtained were reassuring with no significant orthostasis. I performed bedside cardiac ultrasound which did not demonstrate any significant hypertrophic cardiomyopathy, gross wall motion abnormality, or pericardial effusion. On multiple subsequent reassessments, the patient is lying in bed in no acute distress with reassuring vital signs on cardiac telemetry. Ultimately, I do not know the exact underlying etiology of her symptoms. It could be that it is related to the hormones and her control, as she was started on hormonal medication in addition to her IUD. It also could be POTs. Based on reassuring workup and exam, I feel we have excluded acute life- threatening pathology as a cause of her symptoms and like she is appropriate for discharge home with close follow-up with primary care, cardiology, and gynecology. She was given a Holter monitor prior to discharge and instructions to follow-up with cardiology for interpretation. Strict return precautions were given as well as instructions to avoid driving while she is having these recurrent syncopal type episodes. She was discharged with very strict return precautions. Procedures <Jamila Dunn, - Last Filed: 05/21/24 19:53> Limited Ultrasound Findings:: Limited cardiac ultrasound Indication: Syncope Identified cardiac views: [-Cardiac parasternal long axis] [-Cardiac parasternal short axis] Findings: -Cardiac activity present -Gross wall motion normal -Pericardial effusion absent -Right heart strain absent] Impression: -[From above] Images were saved to permanent archive The study was technically adequate CPT: 44490 This study was performed by me, and I personally interpreted all images/videos. Based on my clinical judgement, these images were adequate and did not necessitate further imaging. Critical Care <Jamila Dunn, DO - Last Filed: 05/21/24 19:53> Critical Care Time Critical Care Time: No
--- NOTE | 2024-05-21 15:57 | XR_ITS ---
PROCEDURE INFORMATION: Exam: XR Chest Exam date and time: 05/21/2024 4:15 PM Age: 28 years old Clinical indication: Other: Syncope TECHNIQUE: Imaging protocol: Radiologic exam of the chest. Views: 2 views. COMPARISON: ABDPELW CT abdomen pelvis w con 06/08/2018 3:51 AM FINDINGS: Lungs: No evidence of acute pulmonary disease or infiltrates Pleural spaces: No large effusion or pneumothorax. Heart/Mediastinum: No evidence of mediastinal widening or cardiac silhouette enlargement; the mediastinum and heart appear within normal limits for contour and size. Bones/joints: No evidence of acute osseous abnormalities within the visualized portions of the thoracic spine and ribs. Osseous structures appear appropriate for patient age. IMPRESSION: No dense parenchymal consolidation, pleural effusion, or pneumothorax.
[2024-05-21 16:05] LABS: Basophils # 0.1 K/mm3 (0-0.2); Basophils % 0.9 % (0.1-2.0); Eosinophils % 0.3 % (0.1-12.0); Hematocrit 41.4 % (37.0-47.0); Hemoglobin 14.1 g/dL (12.2-16.2); Lymphocytes # 1.9 K/mm3 (0.7-4.5); Lymphocytes % 20.5 % (10-50); Mean Corpuscular HGB Conc 34.1 g/dL (31.8-35.4); Mean Corpuscular Hemoglobin 29.1 pg (27.0-31.2); Mean Corpuscular Volume 85.3 fl (81-99); Mean Platelet Volume 8.6 fl (7.4-10.4); Monocytes # 0.4 K/mm3 (0.1-1.0); Monocytes % 4.1 % (1.7-9.3); Neutrophils % 74.2 % (37.0-80.0); Platelet Count 241 K/mm3 (142-424); Red Blood Count 4.86 M/mm3 (4.20-5.40); Red Cell Distribution Width 13.6 % (11.5-17.5); White Blood Count 9.5 K/mm3 (4.8-10.8)
[2024-05-21 16:07] LABS: Albumin Level 4.8 g/dl (3.5-5.0); Chloride 103 mmol/L (98-107); Potassium 3.6 mmoL/L (3.5-5.1); Sodium 141 mmol/L (136-145)
[2024-05-21 16:10] LABS: Alanine Aminotransferase 21 U/L (12-78); Albumin/Globulin Ratio 1.8 (1.1-1.8); Alkaline Phosphatase 61 U/L (38-126); Aspartate Amino Transferase 22 U/L (14-36); Bilirubin,Total 0.5 mg/dl (0.2-1.3); Blood Urea Nitrogen 8 mg/dl (7-17); Creatinine Clearance Estimated 206 mL/min (50-200); Estimated Glomerular Filt Rate 119 ml/min (>60); GFR (African American) 144 ML/MIN (>60); Globulin 2.7 g/dL (1.3-3.2); Total Protein,Serum 7.5 g/dl (6.3-8.2)
[2024-05-21 16:11] LABS: Calcium 9.2 mg/dl (8.4-10.2); Glucose 140 mg/dl (74-100)
[2024-05-21 16:15] LABS: HCG Qualitative, Serum Negative (Negative)
[2024-05-21 16:34] LABS: Troponin I < 0.01 ng/ml (0.00-0.034)
--- NOTE | 2024-05-21 16:46 | CT_ITS ---
PROCEDURE INFORMATION: Exam: CTA Head With Contrast, Arteriography Exam date and time: 05/21/2024 5:10 PM Age: 28 years old Clinical indication: Syncope and collapse; Additional info: Recurrent syncope TECHNIQUE: Imaging protocol: Computed tomographic angiography of the head with contrast. Exam focused on the arteries. 3D rendering (Not supervised by radiologist): MIP and/or 3D reconstructed images were created by the technologist. Radiation optimization: All CT scans at this facility use at least one of these dose optimization techniques: automated exposure control; mA and/or kV adjustment per patient size (includes targeted exams where dose is matched to clinical indication); or iterative reconstruction. Contrast material: ISOVUE 370; Contrast volume: 80 ml; Contrast route: INTRAVENOUS (IV); COMPARISON: 1. CT HEAD/BRAIN WO CON 05/21/2024 5:[address] ANGIO NECK 05/21/2024 5:10 PM FINDINGS: ANTERIOR CIRCULATION: Right internal carotid artery: Intracranial segment is patent with no significant stenosis. No aneurysm. Right middle cerebral artery: No occlusion or significant stenosis. No aneurysm. Right anterior cerebral artery: No occlusion or significant stenosis. No aneurysm. Left internal carotid artery: Intracranial segment is patent with no significant stenosis. No aneurysm. Left middle cerebral artery: No occlusion or significant stenosis. No aneurysm. Left anterior cerebral artery: No occlusion or significant stenosis. No aneurysm. POSTERIOR CIRCULATION: Right vertebral artery: No occlusion or significant stenosis. No aneurysm. Left vertebral artery: No occlusion or significant stenosis. No aneurysm. Basilar artery: No occlusion or significant stenosis. No aneurysm. Right posterior cerebral artery: No occlusion or significant stenosis. No aneurysm. Left posterior cerebral artery: No occlusion or significant stenosis. No aneurysm. Brain: No definite mass, mass effect, or midline shift. Cerebral ventricles: No ventriculomegaly. Bones/joints: Unremarkable. No acute fracture. Soft tissues: Unremarkable. IMPRESSION: No acute intracranial vascular anomaly.
--- NOTE | 2024-05-21 16:46 | CT_ITS ---
PROCEDURE INFORMATION: Exam: CTA Neck With Contrast Exam date and time: 05/21/2024 5:10 PM Age: 28 years old Clinical indication: Syncope and collapse; Additional info: Recurrent syncope TECHNIQUE: Imaging protocol: Computed tomographic angiography of the neck with contrast. Exam focused on the cervical segments of the vasculature. 3D rendering (Not supervised by radiologist): MIP and/or 3D reconstructed images were created by the technologist. Radiation optimization: All CT scans at this facility use at least one of these dose optimization techniques: automated exposure control; mA and/or kV adjustment per patient size (includes targeted exams where dose is matched to clinical indication); or iterative reconstruction. Contrast material: ISO 370; Contrast volume: 80 ml; Contrast route: INTRAVENOUS (IV); COMPARISON: 1. CT ANGIO HEAD 05/21/2024 5:[address] HEAD/BRAIN WO CON 05/21/2024 5:07 PM 3. CR XR CHEST 2V 05/21/2024 4:15 PM FINDINGS: Right common carotid artery: No stenosis. No dissection or occlusion. Right internal carotid artery: No stenosis of the extracranial segment. No dissection or occlusion. Right external carotid artery: No occlusion or stenosis of the origin. Left common carotid artery: No stenosis. No dissection or occlusion. Left internal carotid artery: No stenosis of the extracranial segment. No dissection or occlusion. Left external carotid artery: No occlusion or stenosis of the origin. Right vertebral artery: No stenosis. No dissection or occlusion. Left vertebral artery: No stenosis. No dissection or occlusion. Soft tissues: Normal. No significant soft tissue swelling. Bones/joints: No acute fracture. IMPRESSION: No stenosis or occlusion. REFERENCES: NASCET CRITERIA. The degree of stenosis in the cervical segment of the internal carotid artery is based on NASCET criteria. Normal is no stenosis. Mild is less than 50% stenosis. Moderate is 50-69% stenosis. Severe is 70% to 99% stenosis. Total occlusion is no detectable patent lumen.
--- NOTE | 2024-05-21 16:46 | CT_ITS ---
PROCEDURE INFORMATION: Exam: CTA Chest With Contrast Exam date and time: 05/21/2024 5:13 PM Age: 28 years old Clinical indication: Other: Syncope; Additional info: Recurrent syncope TECHNIQUE: Imaging protocol: Computed tomographic angiography of the chest with contrast. Exam focused on the arteries. 3D rendering (Not supervised by radiologist): MIP and/or 3D reconstructed images were created by the technologist. Radiation optimization: All CT scans at this facility use at least one of these dose optimization techniques: automated exposure control; mA and/or kV adjustment per patient size (includes targeted exams where dose is matched to clinical indication); or iterative reconstruction. Contrast material: ISO 370; Contrast volume: 80 ml; Contrast route: INTRAVENOUS (IV); COMPARISON: 1. CR XR CHEST 2V 05/21/2024 4:[address] ANGIO NECK 05/21/2024 5:[address] abdomen pelvis w con 06/08/2018 3:51 AM FINDINGS: Pulmonary arteries: Normal. No pulmonary emboli. Aorta: Unremarkable. No aortic aneurysm. No aortic dissection. Lungs: Unremarkable. No consolidation. No masses. Pleural spaces: Unremarkable. No pneumothorax. No pleural effusion. Heart: Unremarkable. No cardiomegaly. No pericardial effusion. Lymph nodes: Unremarkable. No enlarged lymph nodes. Gallbladder and biliary ducts: The patient is status post cholecystectomy. Bones/joints: Unremarkable. No acute fracture. Soft tissues: Unremarkable. IMPRESSION: No evidence for clinically relevant pulmonary arterial filling defect, dense parenchymal consolidation, pleural effusion, or pneumothorax. No acute intrathoracic anomaly.
--- NOTE | 2024-05-21 16:46 | CT_ITS ---
PROCEDURE INFORMATION: Exam: CT Head Without Contrast Exam date and time: 05/21/2024 5:07 PM Age: 28 years old Clinical indication: Syncope and collapse; Additional info: Recurrent syncope TECHNIQUE: Imaging protocol: Computed tomography of the head without contrast. Radiation optimization: All CT scans at this facility use at least one of these dose optimization techniques: automated exposure control; mA and/or kV adjustment per patient size (includes targeted exams where dose is matched to clinical indication); or iterative reconstruction. COMPARISON: No relevant prior studies available. FINDINGS: Brain: Normal. No hemorrhage. Unremarkable white matter. No mass effect. Cerebral ventricles: No ventriculomegaly. Paranasal sinuses: Visualized sinuses are unremarkable. No fluid levels. Mastoid air cells: Visualized mastoid air cells are well aerated. Bones: Unremarkable. No acute fracture. Soft tissues: Unremarkable. IMPRESSION: No acute intracranial abnormality.
[2024-05-21 16:48] LABS: Anion Gap 11.6 mEq/L (5-15); Carbon Dioxide 30 mmol/L (22.0-30.0)
[2024-05-21 16:55] LABS: Thyroid Stimulating Hormone 1.77 uIU/mL (0.465-4.68)
[2024-05-21] MEDS: 0.9 % SODIUM CHLORIDE 50 ML VIAL 100 ML IV (17:11)
[2024-05-21] MEDS: SODIUM CHLORIDE 0.9% 10ML SYR (RAD ONLY) 10 ML IV (17:12)
[2024-05-21] MEDS: IOPAMIDOL-370 (76%);100ML BOTTLE 160 ML IV (17:12)
[2024-05-21 17:46] LABS: Microscopic, Urine URINE MICROSCOPIC (MICROSCOPIC)
[2024-05-21 17:48] LABS: Appearance,Urine CLEAR (Clear); Bilirubin,Urine Negative (Negative); Blood, Urine Negative (Negative); Color,Urine YELLOW (Yellow); Glucose,Urine (UA) Negative (Negative); Ketones,Urine Negative (Negative); Leukocyte Esterase,Urine TRACE (Negative); Nitrate,Urine Negative (Negative); Protein,Urine Negative (Negative); Specific Gravity, Urine 1.015 (1.005-1.030); Urobilinogen,Urine 0.2 EU/dl (0.2)
[2024-05-21 17:52] LABS: Urine Pregnancy, HCG Qual. Negative (Negative)
[2024-05-21 18:01] LABS: Bacteria,Urine 2+ /lpf; Mucus,Urine 4+ /lpf; WBC,Urine 20-50 #/hpf (0-3)
[2024-05-21] MEDS: 0.9 % SODIUM CHLORIDE 1000ML 1,000 ML 999 ML IV (18:22)
[2024-05-21 19:40] LABS: Troponin I < 0.01 ng/ml (0.00-0.034)
== END 2024-05-21 20:15 | disposition home or self-care (01) ==
PROVIDERS: Emergency Provider Emergency Medicine; PCP Internal Medicine Adolescent Medicine
DX: R55 Syncope and collapse (principal); M79.605 Pain in left leg; R51.9 Headache, unspecified
CPT/HCPCS: 70450; 70496; 70498; 71046; 71275; 80050; 80053; 81001; 81025; 83735; 84436; 84443; 84484; 84703; 85025; 87086; 93005; 93225; 93227; 96360; 99285; J7030; Q9967

== ENCOUNTER 2024-08-05 10:44 | Emergency (ER) | payer BC, SELFPAY ==
--- NOTE | 2024-08-05 10:35 | ECG_ITS ---
APPROVED REPORT Exam: Resting ECG HR:82 bpm ECG Measurements Heart Rate 82 AXES AL 136 P 69 QRSd 94 QRS 83 QT 356 T 40 QTc 395 Conclusion SINUS RHYTHM NORMAL ECG UNCONFIRMED REPORT Electronically signed by : Dimitris Avilez, 08/05/2024 16:12:01
[2024-08-05 10:44] VITALS: BP 150/91; PULSE 93; RESP 16; TEMP 37.1; O2SAT 100; BMI 34.2
[2024-08-05] MEDS: MAGNESIUM SULFATE IN WATER 2 GM/50 ML PIGGYBACK IV (10:52)
[2024-08-05] MEDS: diphenhydrAMINE 50MG/ML VIAL 50 MG IV (10:52)
[2024-08-05] MEDS: KETOROLAC 30MG/ML VIAL 15 MG IV (10:53)
[2024-08-05 10:58] LABS: Basophils % 0.3 % (0.1-2.0); Eosinophils % 0.1 % (0.1-12.0); Hematocrit 37.7 % (37.0-47.0); Hemoglobin 12.1 g/dL (12.2-16.2); Lymphocytes % 20.4 % (10-50); Mean Corpuscular HGB Conc 32.1 g/dL (31.8-35.4); Mean Corpuscular Hemoglobin 27.4 pg (27.0-31.2); Mean Corpuscular Volume 85.5 fl (81-99); Mean Platelet Volume 10.8 fl (7.4-10.4); Monocytes # 0.7 K/mm3 (0.1-1.0); Monocytes % 4.8 % (1.7-9.3); Neutrophils # 10.9 K/mm3 (1.8-7.8); Neutrophils % 74.1 % (37.0-80.0); Platelet Count 239 K/mm3 (142-424); Red Blood Count 4.41 M/mm3 (4.20-5.40); Red Cell Distribution Width 12.6 % (11.5-17.5); White Blood Count 14.8 K/mm3 (4.8-10.8)
[2024-08-05 11:00] VITALS: BP 155/107; PULSE 88; O2SAT 100
[2024-08-05 11:04] LABS: Chloride 104 mmol/L (98-107)
[2024-08-05 11:05] LABS: Sodium 138 mmol/L (136-145)
[2024-08-05 11:07] LABS: Lactic Acid 0.8 mmol/L (0.7-2.1)
[2024-08-05 11:08] LABS: Alanine Aminotransferase 41 U/L (12-78); Albumin Level 4.3 g/dl (3.5-5.0); Albumin/Globulin Ratio 1.8 (1.1-1.8); Alkaline Phosphatase 74 U/L (38-126); Aspartate Amino Transferase 36 U/L (14-36); Bilirubin,Total 0.3 mg/dl (0.2-1.3); Blood Urea Nitrogen 11 mg/dl (7-17); Calcium 8.8 mg/dl (8.4-10.2); Carbon Dioxide 28 mmol/L (22.0-30.0); Creatinine Clearance Estimated 225 mL/min (50-200); Estimated Glomerular Filt Rate 119 ml/min (>60); GFR (African American) 144 ML/MIN (>60); Globulin 2.4 g/dL (1.3-3.2); Glucose 87 mg/dl (74-100); Total Protein,Serum 6.7 g/dl (6.3-8.2)
[2024-08-05 11:13] LABS: HCG Qualitative, Serum Negative (Negative)
[2024-08-05 11:30] VITALS: BP 147/96; PULSE 89; O2SAT 97
--- NOTE | 2024-08-05 11:42 | PC.NURSE ---
ROunded on patient; family at BS. No other needs at this time
[2024-08-05 11:45] VITALS: BP 147/96; PULSE 84; O2SAT 98
--- NOTE | 2024-08-05 11:59 | PC.NURSE ---
pt ambulatory with assistance to restroom without complications.
[2024-08-05 12:01] LABS: HIV Combo NEGATIVE (Negative)
[2024-08-05 12:08] LABS: Hepatitis C Ab Qual. W/ RFX NEGATIVE (Negative)
[2024-08-05 12:11] LABS: Microscopic, Urine URINE MICROSCOPIC (MICROSCOPIC)
[2024-08-05 12:32] LABS: Appearance,Urine SL CLOUDY (Clear); Bilirubin,Urine Negative (Negative); Blood, Urine 3+ (Negative); Color,Urine YELLOW (Yellow); Glucose,Urine (UA) Negative (Negative); Ketones,Urine Negative (Negative); Leukocyte Esterase,Urine 2+ (Negative); Nitrate,Urine Negative (Negative); Protein,Urine 1+ (Negative); Specific Gravity, Urine >= 1.030 (1.005-1.030); Urobilinogen,Urine 0.2 EU/dl (0.2)
[2024-08-05] MEDS: METOCLOPRAMIDE HCL 10MG/2ML VIAL 10 MG IVP (12:34)
--- NOTE | 2024-08-05 12:38 | ED_ITS ---
Discharge Plan Disposition Patient Disposition: Home, Self-Care Prescriptions Prescriptions: No Action levothyroxine 75 mcg tablet 75 mcg PO DAILY Auvelity 45-105 mg tablet, IR and ER, biphasic 1 tab PO DAILY ergocalciferol (vitamin D2) 1,250 mcg (50,000 unit) capsule 50,000 unit PO WEEKLY Patient Comments: TAKE 1 CAPSULE BY MOUTH ONCE A WEEK ondansetron 8 mg tablet,disintegrating 8 mg PO BID PRN (Reason: nausea and vomiting) 7 Days Qty: 14 0RF Referrals Follow up/Referrals: Provider,Referral, MD [Primary Care Provider] - See instructions Activity Restrictions/Add. Instructions Additional Instructions/Restrictions: Follow-up with neurologist. Please return emerged part with any new, concerning, worsening symptoms. Clinical Impressions Clinical Impression: Seizure-like activity Migraine Qualifiers: Migraine type: hemiplegic Status migrainosus presence: without status migrainosus Intractability: not intractable Qualified Code(s): G43.409 - Hemiplegic migraine, not intractable, without status migrainosus Instructions Patient Instructions: DI for Seizure Disorder -- Adult, DI for Seizure (Not Epilepsy/Seizure Disorder), DI for Seizure Disorder -- Child Print Language Print Language: Georgian Discharge ED Provider: Dimitris Avilez General Adult HPI General Chief complaint: Seizure Stated complaint: Seizure Time Seen by Provider: 08/05/24 10:46 Mode of Arrival: EMS Source of Information: Relative and EMS Limitations: No Limitations Description of Symptoms (Recalled from ER Triage Doc. by RN): pt had seizure like activity multiple times over the last few days. History of Present Illness HPI narrative: This is a 28-year-old female with a history of POTS and complex migraines who presents with spell concerning for seizure and left-sided weakness. States that patient has 5-6 episodes of spells concerning for seizure week. Has had increased frequency over the last few days. States that she typically returns to baseline very quickly after these episodes terminate and that she is responsive to family, returning to baseline within minutes. States that she did have an episode last week where it took her 45 minutes to return to baseline. Follows with neurologist and has a referral to epileptologist in [place]. Has never had any tongue biting or urinary incontinence. States that patient also has a headache and left-sided weakness/numbness which is typical of her hemiplegic migraines. Took Nurtec this morning without improvement. Related Data Home Medications ?Medication ?Instructions ?Recorded ?Confirmed levothyroxine 75 mcg tablet 75 mcg PO DAILY 07/16/22 10/16/23 dextromethorphan IR 45 1 tab PO DAILY 10/16/23 10/16/23 mg-bupropion ER 105 mg biphasic tablet (Auvelity) ergocalciferol (vitamin D2) 1,250 50,000 unit PO WEEKLY 10/16/23 10/16/23 mcg (50,000 unit) capsule Previous Rx's ?Medication ?Instructions ?Recorded ondansetron 8 mg disintegrating 8 mg PO BID PRN nausea and 10/16/23 tablet vomiting 7 days #14 tabs Allergies Allergy/AdvReac Type Severity Reaction Status Date / Time aspirin Allergy Verified 10/16/23 09:17 Sulfa (Sulfonamide Allergy Verified 10/16/23 09:17 Antibiotics) [facility] Disclaimer: The information contained in this section may have been updated after the patient was seen, as this information can be updated by other users. 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 Hypothyroidism (acquired) Surgical History History of ERCP History of cholecystectomy [place] teeth extracted History of Social History Smoking Status: Never smoker alcohol intake: never substance use type: denies use current occupational status: employed Travel in the last 8 weeks: None household members: spouse and children housing: house marital status: single Have you lived/traveled outside US in past 30 days?: No Contact w/someone who lives/traveled outside US past 30 days?: No Exposure to someone with infectious disease in past 14 days?: No Do you have a fever (greater than 100.4 F or 38 C)?: No Have you tested positive for COVID-19: No Exposed to someone with COVID-19 in past 14 days?: No Do you have a sore throat?: No Do you have a cough?: No Do you have any weakness?: No Do you have any diarrhea?: No Are you experiencing any unusual bleeding?: No Do you have any muscle aches/pain?: No Do you have any abdominal pain?: No Are you experiencing loss of taste or smell?: No Other 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 Have you received the Flu Vaccine for this season: No Have you received the Pneumonia Vaccine: No ROS Obtained: Yes All systems reviewed & no additional complaints except as documented Physical Exam General General appearance: alert and in no apparent distress Eye Eye exam: Present normal appearance, PERRL and EOMI Respiratory Respiratory exam: Present normal lung sounds bilaterally; Absent respiratory distress Cardiovascular Cardiovascular exam: Present regular rate and normal rhythm Abdominal Exam Abdominal exam: Present soft and distention; Absent tenderness, guarding or rebound Extremities Exam Extremities exam: Present normal inspection Neurological Exam Neurological exam: Present alert, oriented X3 and other (Diminished sensation of the left face, left upper extremity, and left lower extremity. 4-5 strength of left upper and left lower extremity) Skin Skin exam: Present warm and dry Medical Decision Making Medical Records Medical records reviewed: Yes I reviewed the patient's medical records. Screening: Per USPSTF and CDC recommendations, given the prevalence of disease in our region, it is our hospital?s policy to screen for HIV and viral Hepatitis for all patients aged 18 and over and those with ongoing risk factors. [place] Inquiry Pt receiving controlled substance: No Vital Signs: 08/05/24 10:44 08/05/24 11:00 08/05/24 11:30 Temperature 98.7 F Temperature Source Oral Pulse Rate 88 89 Pulse Rate [Right] 93 H Respiratory Rate 16 Blood Pressure 155/107 H 147/96 H Blood Pressure [Right Arm] 150/91 H Blood Pressure Mean [Right Arm] 110 02 Sat by Pulse Oximetry 100 100 97 Oxygen Delivery Method Room Air Room Air 08/05/24 11:45 Temperature Temperature Source Pulse Rate 84 Pulse Rate [Right] Respiratory Rate Blood Pressure 147/96 H Blood Pressure [Right Arm] Blood Pressure Mean [Right Arm] 02 Sat by Pulse Oximetry 98 Oxygen Delivery Method Room Air Lab Data Lab Results 08/05/24 10:32: WBC 14.8 H, RBC 4.41, Hgb 12.1 L, Hct 37.7, MCV 85.5, MCH 27.4, MCHC 32.1, RDW 12.6, Plt Count 239, MPV 10.8 H, Neut % (Auto) 74.1, Lymph % (Auto) 20.4, Gregg % (Auto) 4.8, Eos % (Auto) 0.1, Baso % (Auto) 0.3, Neut # (Auto) 10.9 H, Lymph # (Auto) 3.0, Gregg # (Auto) 0.7, Eos # (Auto) 0.0, Baso # (Auto) 0.0, Sodium 138, Potassium 4.0, Chloride 104, Carbon Dioxide 28, Anion Gap 10.0, BUN 11, Creatinine 0.60, Estimated Creat Clear 225, Estimated GFR 119, Est GFR ( Amer) 144, Glucose 87, Lactate 0.8, Calcium 8.8, Total Bilirubin 0.3, AST 36, ALT 41, Alkaline Phosphatase 74, Total Protein 6.7, Albumin 4.3, Globulin 2.4, Albumin/Globulin Ratio 1.8, Serum HCG, Qual Negative, HCV Ab LAWANDA w/Rflx PCR Qn Negative, HIV Ag/Ab Combo Qual Negative 08/05/24 12:07: Urine Color Yellow, Urine Appearance Sl cloudy, Urine pH 6.0, Ur Specific [place] >= 1.030, Urine Protein 1+ A, Urine Glucose (UA) Negative, Urine Ketones Negative, Urine Blood 3+ A, Urine Nitrate Negative, Urine Bilirubin Negative, Urine Urobilinogen 0.2, Ur Leukocyte Esterase 2+ A, Urine RBC 3-5, Urine WBC 5-10, Ur Squamous Epith Cells 3-5, Urine Bacteria 2+, Urine Mucus Trace 08/05/24 10:32 08/05/24 10:32 Orders (Tests/Meds): ED MEDICATIONS Discontinued Medications Generic Name Dose Route Start Last Admin Trade Name Daltonq PRN Reason Stop Dose Admin Diphenhydramine HCl 50 mg 08/05/24 10:47 08/05/24 10:52 Diphenhydramine 50mg/Ml Vial IV 08/05/24 10:48 50 mg ONCE ONE Administration Magnesium Sulfate 2 gm in 50 mls @ 50 mls/hr 08/05/24 10:47 08/05/24 10:52 Magnesium Sulfate 2gm/50ml Premix IV 08/05/24 11:46 50 mls/hr ONCE ONE Administration Ketorolac Tromethamine 15 mg 08/05/24 10:47 08/05/24 10:53 Ketorolac 30mg/Ml Vial IV 08/05/24 10:48 15 mg ONCE ONE Administration Metoclopramide HCl 10 mg 08/05/24 12:29 08/05/24 12:34 Metoclopramide Hcl 10mg/2ml Vial IVP 08/05/24 12:30 10 mg ONCE ONE Administration ORDERS Category Date Time Status CBC w/Auto Diff [Complete Blood Count Auto Diff] Stat Lab 08/05/24 10:32 Completed CMP [Comprehensive Metabolic Panel] Stat Lab 08/05/24 10:32 Completed HCG Qualitative, Serum Stat Lab 08/05/24 10:32 Completed HIV Combo Stat Lab 08/05/24 10:32 Completed Hepatitis C Ab Qual. W/ RFX Stat Lab 08/05/24 10:32 Completed Lactic Acid Stat Lab 08/05/24 10:32 Completed Urinalysis and Microscopic Stat Lab 08/05/24 12:07 Completed Urine Culture Stat Micro 08/05/24 12:07 Received Medical Decision Narrative: In summary, this 28-year-old female with a history of complex hemiplegic migraines, POTS, Chiari malformation presents to the emergency department today with left-sided weakness, headache, and spell concerning for seizure. On initial evaluation patient is normotensive, nontachycardic, afebrile. Had a left-sided numbness and weakness in the setting of her headache which she stated was typical of her complex migraines. Also had a spell during my initial evaluation of her and woke up with a sternal rub and then began speaking and was responsive.. Differential diagnosis includes but is not limited to epilepsy, PNES, complex migraine. Based on these concerns, I ordered CBC, CMP, test, urinalysis. ECG personally interpreted as noted above. Patient received Toradol, Benadryl, magnesium which is patient's typical migraine cocktail treatment for treatment. Labs personally reviewed demonstrate unremarkable CBC and CMP, negative test. Considered CT imaging, however patient has had multiple CT heads in the past. Unlikely to be helpful. 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 Discussed possibility of transfer to where neurology is available, however patient and mother felt comfortable with discharge and follow-up. Patient still with ported a mild headache. Administered Reglan. Ultimately discharged in stable condition. Neurological symptoms had resolved. Critical Care Critical Care Time Critical Care Time: No
[2024-08-05 12:51] LABS: Bacteria,Urine 2+ /lpf; Mucus,Urine Trace /lpf
[2024-08-05 13:38] VITALS: BP 136/76; PULSE 89; RESP 18; TEMP 36.7; O2SAT 98
== END 2024-08-05 13:40 | disposition home or self-care (01) ==
PROVIDERS: Emergency Provider Student in an Organized Health Care Education/Training Program
DX: G43.409 Hemiplegic migraine, not intractable, without status migrainosus (principal); R56.9 Unspecified convulsions; G81.94 Hemiplegia, unspecified affecting left nondominant side; R20.2 Paresthesia of skin
CPT/HCPCS: 80053; 81001; 83605; 84703; 85025; 86803; 87086; 87389; 93005; 96365; 96374; 96375; 99284; J1200; J1885; J2765; J3475

== ENCOUNTER 2024-08-20 21:11 | Emergency (ER) | payer BC, SELFPAY ==
[2024-08-20 21:11] VITALS: BP 110/94; PULSE 109; RESP 18; TEMP 36.7; O2SAT 100; BMI 36.0
--- NOTE | 2024-08-20 21:37 | ECG_ITS ---
APPROVED REPORT Exam: Resting ECG HR:109 bpm ECG Measurements Heart Rate 109 AXES HI 131 P 59 QRSd 92 QRS 79 QT 333 T 63 QTc 397 Conclusion SINUS TACHYCARDIA ABNORMAL RHYTHM ECG Electronically signed by : JUN MANCUSO, 08/21/2024 00:15:41
[2024-08-20 21:46] LABS: Basophils % 0.3 % (0.1-2.0); Eosinophils # 0.1 K/mm3 (0.0-0.4); Eosinophils % 0.5 % (0.1-12.0); Hematocrit 39.1 % (37.0-47.0); Hemoglobin 12.6 g/dL (12.2-16.2); Lymphocytes # 2.5 K/mm3 (0.7-4.5); Lymphocytes % 21.2 % (10-50); Mean Corpuscular HGB Conc 32.2 g/dL (31.8-35.4); Mean Corpuscular Hemoglobin 27.2 pg (27.0-31.2); Mean Corpuscular Volume 84.3 fl (81-99); Mean Platelet Volume 10.6 fl (7.4-10.4); Monocytes # 0.7 K/mm3 (0.1-1.0); Neutrophils # 8.3 K/mm3 (1.8-7.8); Neutrophils % 71.7 % (37.0-80.0); Platelet Count 269 K/mm3 (142-424); Red Blood Count 4.64 M/mm3 (4.20-5.40); Red Cell Distribution Width 12.9 % (11.5-17.5); White Blood Count 11.6 K/mm3 (4.8-10.8)
[2024-08-20 21:48] LABS: VBG Base Excess -7.7 mmol/L (-2.4-2.3); VBG HCO3 19.3 mmol/L (23-30); VBG Oxygen Saturation 53.6 % (50-70); VBG PCO2 43.3 mmol/L (35-51); VBG PH 7.27 mmol/L (7.31-7.41); VBG Total CO2 20.6 mmol/L (23-27)
[2024-08-20 21:50] LABS: Alanine Aminotransferase 21 U/L (12-78); Albumin/Globulin Ratio 2.2 (1.1-1.8); Alkaline Phosphatase 71 U/L (38-126); Anion Gap 12.3 mEq/L (5-15); Aspartate Amino Transferase 22 U/L (14-36); Bilirubin,Total 0.2 mg/dl (0.2-1.3); Blood Urea Nitrogen 10 mg/dl (7-17); Calcium 8.9 mg/dl (8.4-10.2); Carbon Dioxide 28 mmol/L (22.0-30.0); Chloride 104 mmol/L (98-107); Creatinine Clearance Estimated 197 mL/min (50-200); Estimated Glomerular Filt Rate 100 ml/min (>60); GFR (African American) 121 ML/MIN (>60); Globulin 2.3 g/dL (1.3-3.2); Glucose 82 mg/dl (74-100); Potassium 3.3 mmoL/L (3.5-5.1); Sodium 141 mmol/L (136-145); Total Protein,Serum 7.3 g/dl (6.3-8.2)
[2024-08-20 22:07] LABS: T4 (Thyroxine) 11.8 ug/dl (5.53-11.0)
[2024-08-20 22:21] LABS: Thyroid Stimulating Hormone 1.62 uIU/mL (0.465-4.68)
--- NOTE | 2024-08-20 22:33 | PC.NURSE ---
called [facility] at this time for neuro consult per DR Dunn request.
[2024-08-20 22:38] LABS: HCG Qualitative, Serum Negative (Negative)
--- NOTE | 2024-08-20 22:40 | ED_ITS ---
Discharge Plan Disposition Patient Disposition: Home, Self-Care Condition: Good Chief Complaint: Seizure Prescriptions Prescriptions: No Action levothyroxine 75 mcg tablet 75 mcg PO DAILY Auvelity 45-105 mg tablet, IR and ER, biphasic 1 tab PO DAILY ergocalciferol (vitamin D2) 1,250 mcg (50,000 unit) capsule 50,000 unit PO WEEKLY Patient Comments: TAKE 1 CAPSULE BY MOUTH ONCE A WEEK ondansetron 8 mg tablet,disintegrating 8 mg PO BID PRN (Reason: nausea and vomiting) 7 Days Qty: 14 0RF Referrals Follow up/Referrals: Seth Grimaldo MD [Primary Care Provider] - See instructions Activity Restrictions/Add. Instructions Additional Instructions/Restrictions: Please follow-up with your neurologist right away for further evaluation and management. Neurology at [place] advised if you have recurrence of issues or issues that are difficult to control at home, they recommended proceeding to the emergency department where you follow with neurology, whether that be [facility] or . We are always here if you need us if you have any new or worsening symptoms and or concern for your safety. Clinical Impressions Clinical Impression: Hemiplegic migraine, Seizure-like activity Stand Alone Forms Stand Alone Forms: Work/School Release Instructions Patient Instructions: DI for Seizure (Not Epilepsy/Seizure Disorder), DI for Migraine Print Language Print Language: Togolese Discharge ED Provider: Jamila Dunn General Adult HPI General Chief complaint: Seizure Stated complaint: Headache Time Seen by Provider: 08/20/24 21:27 Mode of Arrival: EMS Source of Information: Patient Limitations: No Limitations Description of Symptoms (Recalled from ER Triage Doc. by RN): pt to ED via [facility] for possible seizure. EMS reports that pt had an episode of distant staring and twitching of the face and upper body that lasted approx 30 minutes. FSBS 85. History of Present Illness HPI narrative: This patient is a 28-year-old female with a history of POTS, hemiplegic migraines, absence seizure's presenting to the emergency department for evaluation with concern for increase in seizure activity. Patient follows at [facility] with [facility] with neurology. She also has seen cardiology in [place] in the past and also has been seen at [facility]. She has been diagnosed with hemiplegic migraines and has had episodes of distant staring ever since diagnosis. Her medications have been adjusted, but the episodes become more frequent. She is having more frequent migraines. She has had daily episodes of staring off into space, but typically they resolve spontaneously. Tonight, she had episode that lasted around 30 minutes, which is unlike her. She also had eye rolling and twitching of her face during this period. She arrives by EMS who noted she was stable en route with reassuring vital signs on cardiac telemetry. Patient denies any physical concerns or complaints at this time, not cooperating much with history. Most of history is obtained from EMS and her mother. Mom states that usually a migraine cocktail of fluids, Reglan, and magnesium help with her symptoms. Related Data Home Medications ?Medication ?Instructions ?Recorded ?Confirmed levothyroxine 75 mcg tablet 75 mcg PO DAILY 07/16/22 10/16/23 dextromethorphan IR 45 1 tab PO DAILY 10/16/23 10/16/23 mg-bupropion ER 105 mg biphasic tablet (Auvelity) ergocalciferol (vitamin D2) 1,250 50,000 unit PO WEEKLY 10/16/23 10/16/23 mcg (50,000 unit) capsule Previous Rx's ?Medication ?Instructions ?Recorded ondansetron 8 mg disintegrating 8 mg PO BID PRN nausea and 10/16/23 tablet vomiting 7 days #14 tabs Allergies Allergy/AdvReac Type Severity Reaction Status Date / Time aspirin Allergy Verified 10/16/23 09:17 Sulfa (Sulfonamide Allergy Verified 10/16/23 09:17 Antibiotics) [facility] Disclaimer: The information contained in this section may have been updated after the patient was seen, as this information can be updated by other users. 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 Hypothyroidism (acquired) Surgical History History of ERCP History of cholecystectomy [place] teeth extracted History of Social History Smoking Status: Unknown if ever smoked alcohol intake: never substance use type: denies use current occupational status: employed Travel in the last 8 weeks: None household members: spouse and children housing: house marital status: single Have you lived/traveled outside US in past 30 days?: No Contact w/someone who lives/traveled outside US past 30 days?: No Exposure to someone with infectious disease in past 14 days?: No Do you have a fever (greater than 100.4 F or 38 C)?: No Have you tested positive for COVID-19: No Exposed to someone with COVID-19 in past 14 days?: No Do you have a sore throat?: No Do you have a cough?: No Do you have any weakness?: No Do you have any diarrhea?: No Are you experiencing any unusual bleeding?: No Do you have any muscle aches/pain?: No Do you have any abdominal pain?: No Are you experiencing loss of taste or smell?: No Other 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 Have you received the Flu Vaccine for this season: No Have you received the Pneumonia Vaccine: No ROS Obtained: Yes All systems reviewed & no additional complaints except as documented Physical Exam General General appearance: alert and in no apparent distress Comment: Lying in bed in no acute distress, frequent eye rolling and blinking. Able to answer questions appropriately Head Head exam: atraumatic and normocephalic Eye Eye exam: Present normal appearance, PERRL and EOMI ENT ENT exam: Present normal exam, normal oropharynx, mucous membranes moist and normal external ear exam Neck Neck exam: Present normal inspection, full ROM and trachea midline; Absent tenderness Chest Chest inspection: Present normal inspection and symmetric chest wall rise; Absent tenderness Respiratory Respiratory exam: Present normal lung sounds bilaterally; Absent respiratory distress, wheezes, stridor or accessory muscle use Cardiovascular Cardiovascular exam: Present regular rate and normal rhythm Abdominal Exam Abdominal exam: Present soft; Absent distention, tenderness or guarding Extremities Exam Extremities exam: Present normal inspection, full ROM and normal capillary refill; Absent tenderness or edema Back Exam Back exam: Present normal inspection and full ROM; Absent tenderness Neurological Exam Neurological exam: Present alert, oriented X3, CN II-XII intact and other (Slight drift on the left of the left upper extremity especially, but mom notes that this is stable in her baseline as she has had multiple MRIs that have not shown anything.) Psychiatric Psychiatric exam: Present normal affect and normal mood Skin Skin exam: Present warm and dry Medical Decision Making Medical Records Medical records reviewed: Yes I reviewed the patient's medical records. Screening: Per USPSTF and CDC recommendations, given the prevalence of disease in our region, it is our hospital?s policy to screen for HIV and viral Hepatitis for all patients aged 18 and over and those with ongoing risk factors. [place] Inquiry Pt receiving controlled substance: No Vital Signs: 08/20/24 21:11 Temperature 98.0 F Temperature Source Oral Pulse Rate [Left Radial] 109 H Respiratory Rate 18 Blood Pressure [Right Arm] 110/94 H Blood Pressure Mean [Right Arm] 99 Blood Pressure Source [Right Arm] Automatic Cuff Blood Pressure Position [Right Arm] Sitting 02 Sat by Pulse Oximetry 100 Oxygen Delivery Method Room Air Lab Data Lab results reviewed: Yes I reviewed the patient's lab results. Lab Results 08/20/24 21:27: VBG pH 7.27 L, VBG pCO2 43.3, VBG pO2 32.0, VBG HCO3 19.3 L, VBG Total CO2 20.6 L, VBG O2 Saturation 53.6, VBG Base Excess -7.7 L, VBG Lactic Acid 1.0 08/20/24 21:32: WBC 11.6 H, RBC 4.64, Hgb 12.6, Hct 39.1, MCV 84.3, MCH 27.2, MCHC 32.2, RDW 12.9, Plt Count 269, MPV 10.6 H, Neut % (Auto) 71.7, Lymph % (Auto) 21.2, Gilliam % (Auto) 6.0, Eos % (Auto) 0.5, Baso % (Auto) 0.3, Neut # (Auto) 8.3 H, Lymph # (Auto) 2.5, Gilliam # (Auto) 0.7, Eos # (Auto) 0.1, Baso # (Auto) 0.0, Sodium 141, Potassium 3.3 L, Chloride 104, Carbon Dioxide 28, Anion Gap 12.3, BUN 10, Creatinine 0.70, Estimated Creat Clear 197, Estimated GFR 100, Est GFR ( Amer) 121, Glucose 82, Calcium 8.9, Magnesium 2.0 08/20/24 21:32: Magnesium 2.0, Total Bilirubin 0.2, AST 22, ALT 21, Alkaline Phosphatase 71, Total Protein 7.3, Albumin 5.0, Globulin 2.3, Albumin/Globulin Ratio 2.2 H, TSH 1.62, Thyroxine (T4) 11.8 H, Serum HCG, Qual Negative 08/20/24 21:32 08/20/24 21:32 Orders (Tests/Meds): ED MEDICATIONS Discontinued Medications Generic Name Dose Route Start Last Admin Trade Name Daltonq PRN Reason Stop Dose Admin Diphenhydramine HCl 25 mg 08/20/24 22:27 08/20/24 22:41 Diphenhydramine 50mg/Ml Vial IV 08/20/24 22:28 25 mg ONCE ONE Administration Lactated Ringer's 1,000 mls @ 999 mls/hr 08/20/24 22:27 08/20/24 22:41 Lactated Ringer's 1000 Ml Bag IV 08/20/24 23:27 999 mls/hr .Q1H1M ONE Administration Magnesium Sulfate 2 gm in 50 mls @ 50 mls/hr 08/20/24 22:27 08/20/24 22:41 Magnesium Sulfate 2gm/50ml Premix IV 08/20/24 23:26 50 mls/hr ONCE ONE Administration Ketorolac Tromethamine 15 mg 08/20/24 22:28 08/20/24 22:42 Ketorolac 30mg/Ml Vial IV 08/20/24 22:29 15 mg ONCE ONE Administration Metoclopramide HCl 5 mg 08/20/24 22:27 08/20/24 22:42 Metoclopramide Hcl 10mg/2ml Vial IVP 08/20/24 22:28 5 mg ONCE ONE Administration Potassium Chloride 40 meq 08/20/24 22:45 08/20/24 23:01 Potassium Chloride 20meq Tab PO 08/20/24 22:46 40 meq ONCE ONE Administration ORDERS Category Date Time Status Complete Blood Count Auto Diff Stat Lab 08/20/24 21:32 Completed Comprehensive Metabolic Panel Stat Lab 08/20/24 21:32 Completed MAG [Magnesium] Stat Lab 08/20/24 21:32 Completed Magnesium Stat Lab 08/20/24 21:32 Completed Serum [HCG Qualitative, Serum] Stat Lab 08/20/24 21:32 Completed T4 (Thyroxine) Stat Lab 08/20/24 21:32 Completed TSH [Thyroid Stimulating Hormone] Stat Lab 08/20/24 21:32 Completed UA [Urinalysis and Microscopic] Stat Lab 08/20/24 21:27 Ordered UDS [Drug Screen,Urine] Stat Lab 08/20/24 21:27 Ordered VBG [Venous Blood Gas] Stat RT 08/20/24 21:27 Completed ECG Data Tracing #1: I reviewed this ECG and interpreted as documented below: Sinus tachycardia with a ventricular rate of [address] changes concerning for ischemia. Normal axis and intervals. ECG initial impression date: 08/20/24 ECG initial impression time: 21:42 Medical Decision Narrative: In summary, this patient is a 28-year-old female presenting to the Emergency Department for evaluation of increase in seizure activity and migraines. Differential diagnoses considered include but are not limited to PNES, functional neurologic disorder, hemiplegic migraines, complex migraine, electrolyte derangements. Ruling out the most morbid conditions drove assessment. It should be noted patient's history includes POTS, functional neurologic disorder, complex hemiplegic migraine which are not at goal therapy. This complicates all aspects of care by increasing patient's risk for morbidity. 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 I also noted prior records at from [place] which demonstrated concern for functional neurologic disorder as well. On exam, the patient is lying in bed in no acute distress. She has some eye twitching and rolling, but she is able to communicate verbally through this and answer orientation questions appropriately without new focal deficits on exam. Workup included CBC, CMP, magnesium, TSH, T4, test, urinalysis, urine drug screen. I considered obtaining head imaging, such as CT scan of the head, however based on reassuring history and exam and the fact that these findings are chronic in the setting of multiple prior normal bouts of imaging, I do not feel that this is indicated as it would likely not change analyst. I noted that she has a prior MRI that showed Chiari malformation but no other notable issues. Patient's mother states that these things typically get better with migraine cocktail, so she was given migraine cocktail of IV Benadryl, Reglan, magnesium, Toradol. Labs were obtained that demonstrated mild hypokalemia for which oral replacement was ordered. She also has a mild metabolic acidosis noted on VBG, but chemistry is not really concerning.. I had an interactive discussion with Dr. Land with neurology at [facility] where the patient follows who advised he does not recommend any changes in medications at this time, and he stated it would be best that the patient could follow-up outpatient with her neurology team. He stated that if she has issues that are difficult to manage at home, he would recommend that he go to the ER at the hospital where she sees neurology, whether it be [facility] or which has been seen in the past. On reassessment, patient had good improvement after administration of interventions above. She is at her neurologic baseline, and I feel that she is appropriate for discharge with close follow-up with neurology on an outpatient basis as instructed by the neurologist at [facility]. Strict return precautions were given as well as instructions for close follow-up. Critical Care Critical Care Time Critical Care Time: No
[2024-08-20] MEDS: LACTATED RINGERS 1000ML 1,000 ML 999 ML IV (22:41)
[2024-08-20] MEDS: diphenhydrAMINE 50MG/ML VIAL 25 MG IV (22:41)
[2024-08-20] MEDS: MAGNESIUM SULFATE IN WATER 2 GM/50 ML PIGGYBACK IV (22:41)
[2024-08-20] MEDS: KETOROLAC 30MG/ML VIAL 15 MG IV (22:42)
[2024-08-20] MEDS: METOCLOPRAMIDE HCL 10MG/2ML VIAL 5 MG IVP (22:42)
--- NOTE | 2024-08-20 22:55 | PC.NURSE ---
rounded on pt. meds given per MAR. pt voices no needs. mother at beside. call light in reach
[2024-08-20] MEDS: POTASSIUM CHLORIDE 20MEQ TAB 40 MEQ PO (23:01)
--- NOTE | 2024-08-20 23:42 | PC.NURSE ---
rounded on pt at this time. pt voices no needs. mother at bedside. call light in reach.
[2024-08-20 23:51] VITALS: BP 105/67; PULSE 80; RESP 18; TEMP 36.4; O2SAT 98
== END 2024-08-20 23:57 | disposition home or self-care (01) ==
PROVIDERS: Emergency Provider Emergency Medicine; PCP Internal Medicine Adolescent Medicine
DX: G43.909 Migraine, unspecified, not intractable, without status migrainosus (principal); R56.9 Unspecified convulsions
CPT/HCPCS: 80053; 82803; 83735; 84436; 84443; 84703; 85025; 93005; 96361; 96365; 96374; 96375; 99284; J1200; J1885; J2765; J3475; J7120

== ENCOUNTER 2024-09-06 14:48 | Emergency (ER) | payer BC, SELFPAY ==
[2024-09-06 14:48] VITALS: BP 119/77; PULSE 87; RESP 16; TEMP 36.6; O2SAT 98; BMI 36.5
--- NOTE | 2024-09-06 14:55 | PC.NURSE ---
walked pt to the bathroom. She tolerated very well. Collected sample and submitted to the lab.
[2024-09-06 15:00] VITALS: BP 119/77; PULSE 97; RESP 17; O2SAT 100
--- NOTE | 2024-09-06 15:02 | ECG_ITS ---
APPROVED REPORT Exam: Resting ECG HR:93 bpm ECG Measurements Heart Rate 93 AXES ND 138 P 53 QRSd 98 QRS 64 QT 346 T 42 QTc 397 Conclusion Sinus rhythm Electronically signed by : TAINA NEWMAN, 09/06/2024 23:36:27
--- NOTE | 2024-09-06 15:03 | PC.NURSE ---
pt's mother and in room.
[2024-09-06 15:10] LABS: Microscopic, Urine URINE MICROSCOPIC (MICROSCOPIC)
--- NOTE | 2024-09-06 15:10 | PC.NURSE ---
Dr. Jacobo at bedside
[2024-09-06 15:12] LABS: Appearance,Urine CLEAR (Clear); Bilirubin,Urine Negative (Negative); Blood, Urine Negative (Negative); Color,Urine YELLOW (Yellow); Glucose,Urine (UA) Negative (Negative); Ketones,Urine Negative (Negative); Leukocyte Esterase,Urine Negative (Negative); Nitrate,Urine Negative (Negative); PH,Urine 6.5 (5.0-8.5); Protein,Urine Negative (Negative); Specific Gravity, Urine <= 1.005 (1.005-1.030); Urobilinogen,Urine 0.2 EU/dl (0.2)
[2024-09-06 15:14] LABS: Urine Pregnancy, HCG Qual. Negative (Negative)
[2024-09-06 15:15] VITALS: BP 130/81; PULSE 103; RESP 27; O2SAT 99
[2024-09-06 15:30] LABS: Squamous Epithelial Cell,Urine Occasional #/hpf (0-5)
--- NOTE | 2024-09-06 15:50 | HMH.EDGENADL ---
Discharge Plan Disposition Patient Disposition: Home, Self-Care Prescriptions Prescriptions: New levetiracetam 1,000 mg tablet 1,000 mg PO BID 30 Days Qty: 60 2RF No Action levothyroxine 75 mcg tablet 75 mcg PO DAILY ondansetron 8 mg tablet,disintegrating 8 mg PO BID PRN (Reason: nausea and vomiting) 7 Days Qty: 14 0RF folic acid 400 mcg tablet 400 mcg PO DAILY Patient Comments: TAKE 1 TABLET BY MOUTH ONCE DAILY escitalopram oxalate 10 mg tablet 10 mg PO DAILY Patient Comments: TAKE 1 TABLET BY MOUTH ONCE DAILY Nurtec ODT 75 mg tablet,disintegrating 1 mg PO DIRECTED Patient Comments: DISSOLVE 1 TABLET BY MOUTH NEEDED Qulipta 60 mg tablet 60 mg PO DAILY Patient Comments: TAKE 1 TABLET BY MOUTH ONCE DAILY metoclopramide HCl [Reglan] 10 mg tablet 10 mg PO Q6H PRN (Reason: migraine headache) Qty: 10 0RF Referrals Follow up/Referrals: Provider,Referral, MD [Primary Care Provider] - See instructions Activity Restrictions/Add. Instructions Additional Instructions/Restrictions: Call your family doctor to establish care for this visit to the emergency department and schedule follow-up within 48 hours to ensure improvement. If you have any worsening of your condition or any other concerning signs or symptoms, return to the emergency department or your primary care doctor for further evaluation. Seizure precautions - do not do any of these activities until cleared by your neurologist: 1) avoid sleep deprivation 2) avoid open bodies of water and open flames 3) avoid swimming alone 4) take showers, do not take baths 5) avoid any situation where loss of consciousness may predispose to injury or 6) avoid driving Call [facility] and tell them you were in the ED today. Spoke with Dr. Land, who recommended keppra 1000mg twice daily as well as follow-up with Dr. Burks for further inpatient EEG. Clinical Impressions Clinical Impression: Seizure-like activity Print Language Print Language: Chadian Discharge ED Provider: Casimiro Jacobo General Adult HPI General Chief complaint: Neuro Symptoms/Deficit Stated complaint: Unresponsive, neuro event Time Seen by Provider: 09/06/24 15:06 Mode of Arrival: EMS Source of Information: Patient, EMS and Medical Record Limitations: No Limitations Description of Symptoms (Recalled from ER Triage Doc. 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 Pt is A&Ox3 at the time of arrival to ER. Medic Rl states pt started the Event about 15 min . Pt states she was eating lunch with family when she felt like jello . States she had a little episode last night. Per pt and family neuro changed medictions from keppra to topimax on Fri (09/03). Denies any recent falls, trauma, or injury. History of Present Illness HPI narrative: Please note that above description of symptoms, in this electronic medical record under categorization of recalled from ER triage doctor by RN are reflective of an initial nursing assessment, however, is not reflective of my full history and physical exam that was personally taken and clarified. Consequentially, this preceding description of symptoms, which may include the patient's categorized chief complaint in the EMR, do not reflect my personal clinical impression, and the ultimate description of history of present illness and patient stated complaints should be deferred to this section of the note. Unless stated otherwise or congruent with this section of the note, additional signs, symptoms, or incongruence should be interpreted as inaccurate with my clinical impression. Related Data Home Medications ?Medication ?Instructions ?Recorded ?Confirmed levothyroxine 75 mcg tablet 75 mcg PO DAILY 07/16/22 09/06/24 atogepant 60 mg tablet (Qulipta) 60 mg PO DAILY 09/06/24 09/06/24 escitalopram oxalate 10 mg tablet 10 mg PO DAILY 09/06/24 09/06/24 folic acid 400 mcg tablet 400 mcg PO DAILY 09/06/24 09/06/24 rimegepant 75 mg disintegrating 1 mg PO DIRECTED 09/06/24 09/06/24 tablet (Nurtec ODT) Previous Rx's ?Medication ?Instructions ?Recorded ondansetron 8 mg disintegrating 8 mg PO BID PRN nausea and 10/16/23 tablet vomiting 7 days #14 tabs metoclopramide HCl 10 mg tablet 10 mg PO Q6H PRN migraine headache 08/20/24 (Reglan) #10 tabs levetiracetam 1,000 mg tablet 1,000 mg PO BID 30 days #60 tabs 09/06/24 Allergies Allergy/AdvReac Type Severity Reaction Status Date / Time aspirin Allergy Verified 10/16/23 09:17 Sulfa (Sulfonamide Allergy Verified 03/28/24 09:17 Antibiotics) [facility] Dis[facility]: The information contained in this section may have been updated after the patient was seen, as this information can be updated by other users. 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 Hypothyroidism (acquired) Surgical History History of ERCP History of cholecystectomy Knickerbocker teeth extracted History of Social History Smoking Status: Never smoker alcohol intake: never substance use type: denies use current occupational status: employed Travel in the last 8 weeks: None household members: spouse and children housing: house marital status: single Other 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 Have you received the Flu Vaccine for this season: No Have you received the Pneumonia Vaccine: No ROS Obtained: Yes All systems reviewed & no additional complaints except as documented Physical Exam General General appearance: alert Head Head exam: atraumatic and normocephalic Eye Eye exam: Present normal appearance, PERRL and EOMI Neck Neck exam: Present normal inspection, full ROM and trachea midline Respiratory Respiratory exam: Absent respiratory distress, wheezes, stridor, accessory muscle use or prolonged expiratory phase Cardiovascular Cardiovascular exam: Present other (Pulses equal symmetric in upper and lower extremities) Abdominal Exam Abdominal exam: Present soft; Absent distention, tenderness or pulsatile mass Extremities Exam Extremities exam: Absent edema Neurological Exam Neurological exam: Present alert, oriented X3 and CN II-XII intact; Absent motor sensory deficit Skin Skin exam: Present warm and dry; Absent diaphoresis or erythema Medical Decision Making Medical Records Medical records reviewed: Yes I reviewed the patient's medical records. Screening: Per USPSTF and CDC recommendations, given the prevalence of disease in our region, it is our hospital?s policy to screen for HIV and viral Hepatitis for all patients aged 18 and over and those with ongoing risk factors. Brent Inquiry Pt receiving controlled substance: No Brent was queried for this patient: No Vital Signs: 09/06/24 14:48 09/06/24 15:00 09/06/24 15:15 Temperature 97.8 F Temperature Source Temporal Artery Scan Pulse Rate 97 H 103 H Pulse Rate [Right] 87 Respiratory Rate 16 17 27 H Blood Pressure 119/77 130/81 Blood Pressure [Right Arm] 119/77 Blood Pressure Mean [Right Arm] 91 Blood Pressure Source [Right Arm] Automatic Cuff 02 Sat by Pulse Oximetry 98 100 99 Oxygen Delivery Method Room Air Room Air Room Air Lab Data Lab Results 09/06/24 14:55: Urine Color Yellow, Urine Appearance Clear, Urine pH 6.5, Ur Specific [place] <= 1.005, Urine Protein Negative, Urine Glucose (UA) Negative, Urine Ketones Negative, Urine Blood Negative, Urine Nitrate Negative, Urine Bilirubin Negative, Urine Urobilinogen 0.2, Ur Leukocyte Esterase Negative, Urine RBC None, Urine WBC None, Ur Squamous Epith Cells Occasional, Urine Bacteria None, Urine HCG, Qual Negative, Ur Barbituates Screen Negative, Ur Amphetamines Screen Negative, U Benzodiazepines Scrn Negative, Urine Cocaine Screen Negative, U Marijuana (THC) Screen Negative 09/06/24 16:10: WBC 10.8, RBC 4.58, Hgb 12.4, Hct 38.0, MCV 83.0, MCH 27.1, MCHC 32.6, RDW 12.9, Plt Count 246, MPV 10.6 H, Neut % (Auto) 74.4, Lymph % (Auto) 18.8, [place] % (Auto) 5.5, Eos % (Auto) 0.5, Baso % (Auto) 0.5, Neut # (Auto) 8.0 H, Lymph # (Auto) 2.0, [place] # (Auto) 0.6, Eos # (Auto) 0.1, Baso # (Auto) 0.1, Sodium 139, Potassium 3.9, Chloride 105, Carbon Dioxide 27, Anion Gap 10.9, BUN 9, Creatinine 0.70, Estimated Creat Clear 206, Estimated GFR 100, Est GFR ( Amer) 121, Glucose 94, Calcium 8.7, Phosphorus 2.8, Magnesium 2.0, Total Bilirubin 0.2, AST 25, ALT 22, Alkaline Phosphatase 73, Total Creatine Kinase 46, Troponin I < 0.01, C-Reactive Protein 2.8, NT-Pro-B Natriuret Pep 118, Total Protein 6.8, Albumin 4.4, Globulin 2.4, Albumin/Globulin Ratio 1.8, TSH 2.25, Thyroxine (T4) 10.1 09/06/24 16:10 09/06/24 16:10 Orders (Tests/Meds): ED MEDICATIONS Discontinued Medications Generic Name Dose Route Start Last Admin Trade Name Freq PRN Reason Stop Dose Admin Levetiracetam 2,000 mg/ Sodium 120 mls @ 240 mls/hr 09/06/24 15:37 09/06/24 16:18 Chloride IV 09/06/24 15:38 240 mls/hr ONCE ONE Administration ORDERS Category Date Time Status CK [Creatine Kinase] Stat Lab 09/06/24 16:10 Completed CRP [C-Reactive Protein] Stat Lab 09/06/24 16:10 Completed Complete Blood Count Auto Diff Stat Lab 09/06/24 16:10 Completed Comprehensive Metabolic Panel Stat Lab 09/06/24 16:10 Completed Hemoglobin A1C Stat Lab 09/06/24 16:10 Received Magnesium Stat Lab 09/06/24 16:10 Completed NT Pro Brain Natriuretic Pep. Stat Lab 09/06/24 16:10 Completed PHOS [Phosphorous] Stat Lab 09/06/24 16:10 Completed T4 (Thyroxine) Stat Lab 09/06/24 16:10 Completed TSH [Thyroid Stimulating Hormone] Stat Lab 09/06/24 16:10 Completed Troponin I Q3H Lab 09/06/24 18:45 Ordered Troponin I Q3H Lab 09/06/24 21:45 Ordered Troponin I Stat Lab 09/06/24 16:10 Completed UDS [Drug Screen,Urine] Stat Lab 09/06/24 14:55 Results Urinalysis and Microscopic Stat Lab 09/06/24 14:55 Completed Urine , HCG Qual. Stat Lab 09/06/24 14:55 Completed Medical Decision Narrative: 28-year-old female with extensive neurologic history including migraines, hemiplegic migraine, optical migraines, cluster headaches, recurrent seizure-like activity presenting with seizure-like activity. Mother states that patient has been having seizure-like activity since 04/2024. On and off of seizure meds. Had Qulipta changed to Topamax last week, but seizure-like episodes have been going on prior to that. States that she is aware, feels like she is dissociated, but able to respond to mother and those around her when she is having these episodes. Last had one just before arrival. No tongue biting, no loss of continence. No postictal period. States that she has an EEG scheduled for mid September, does not think this is soon enough. Came in for further evaluation. Patient has had negative CT, negative MRI, negative x ray technologist and largely negative workup to the extent of going to [facility] this week for further information. This is where she has EEG scheduled. History was obtained via conversation with patient and mother, significant other. On arrival, patient hemodynamically stable, alert, oriented x4, appropriate, GCS 15, moving all extremities spontaneously, pupils equal and reactive to light. Full physical exam performed and significant for very well-appearing female no acute distress. Neurologically intact, no acute abnormalities. Cardiac exam normal. Unremarkable exam overall and patient currently asymptomatic. Differential includes focal seizure, generalized seizure, nonepileptic seizure, metabolic abnormality, endocrinologic abnormality, among others. Patient placed on continuous cardiac monitoring and continuous pulse ox with initial blood pressure 119/77, heart rate 87, saturation 98% on room air. Independent interpretation of EKG shows sinus rhythm with sinus arrhythmia 93 bpm with WA 138, QRS 98, QTc 397. Normal axis. No acute ischemic change. Shortly after arrival, patient had one of her episodes. Patient had only right sided clonic movements without prolonged tonicity. No loss of consciousness, but states that head hurts, mouth feels dry and weird, but no loss of consciousness. Able to follow commands. Patient became tachycardic to 120 to 130 bpm during this episode. Patient was given liter fluids and for symptomatic management and correction of underlying abnormalities. Workup independently interpreted and significant for nonactionable CBC, chemistry, CK, troponin, CRP, BNP, thyroid studies, urine, etc. On reevaluation, patient without any other symptoms. [facility] was contacted and case was discussed with Dr. Land. He seemed to think that patient was totally appropriate for outpatient follow-up, I agree. Recommended Keppra 1000 mg twice daily and follow-up with Dr. Burks at [facility] for further EEG workup. This was relayed to family. CT head was considered, but at this point patient not having any residual neurologic deficits, very well-appearing, neuro intact, I feel that recently negative CT, recently negative MRI and negative workup today makes CT unnecessary and radiation burden is not worth the risks. Given patient presentation, workup, history, this most likely represents epileptic versus nonepileptic seizure-like activity. Because patient at baseline without signs or symptoms of clinical decompensation, deemed appropriate for discharge. Results were relayed to patient who voiced understanding and were agreeable to outpatient management and follow up. I discussed my clinical impression with patient and answered all questions. At this time, the evidence for any other entities in the differential is insufficient to warrant any further testing or ED observation. This was explained as well. Advisory was given that persistent or worsening symptoms require further evaluation. I confirmed the understanding of this discussion. Feeder Catcher disclaimer Much of this encounter note is an electronic loss prevention research engineer spoken language to printed text. Electronic loss prevention research engineer of the spoken language may permit errors. Although I have reviewed the note, some errors may still exist. Critical Care Critical Care Time Critical Care Time: No
[2024-09-06] MEDS: levETIRAcetam 2,000 MG in 0.9 % SODIUM CHLORIDE 100 ML 240 MG IV (16:18)
[2024-09-06 16:20] LABS: Basophils # 0.1 K/mm3 (0-0.2); Basophils % 0.5 % (0.1-2.0); Eosinophils # 0.1 K/mm3 (0.0-0.4); Eosinophils % 0.5 % (0.1-12.0); Hemoglobin 12.4 g/dL (12.2-16.2); Lymphocytes % 18.8 % (10-50); Mean Corpuscular HGB Conc 32.6 g/dL (31.8-35.4); Mean Corpuscular Hemoglobin 27.1 pg (27.0-31.2); Mean Platelet Volume 10.6 fl (7.4-10.4); Monocytes # 0.6 K/mm3 (0.1-1.0); Monocytes % 5.5 % (1.7-9.3); Neutrophils % 74.4 % (37.0-80.0); Platelet Count 246 K/mm3 (142-424); Red Blood Count 4.58 M/mm3 (4.20-5.40); Red Cell Distribution Width 12.9 % (11.5-17.5); White Blood Count 10.8 K/mm3 (4.8-10.8)
[2024-09-06 16:46] LABS: Albumin Level 4.4 g/dl (3.5-5.0); Chloride 105 mmol/L (98-107); Potassium 3.9 mmoL/L (3.5-5.1); Sodium 139 mmol/L (136-145)
[2024-09-06 16:49] LABS: Alanine Aminotransferase 22 U/L (12-78); Albumin/Globulin Ratio 1.8 (1.1-1.8); Alkaline Phosphatase 73 U/L (38-126); Anion Gap 10.9 mEq/L (5-15); Aspartate Amino Transferase 25 U/L (14-36); Bilirubin,Total 0.2 mg/dl (0.2-1.3); Blood Urea Nitrogen 9 mg/dl (7-17); Carbon Dioxide 27 mmol/L (22.0-30.0); Creatine Kinase 46 U/L (30-135); Creatinine Clearance Estimated 206 mL/min (50-200); Estimated Glomerular Filt Rate 100 ml/min (>60); GFR (African American) 121 ML/MIN (>60); Globulin 2.4 g/dL (1.3-3.2); Phosphorous 2.8 mg/dl (2.5-4.5); Total Protein,Serum 6.8 g/dl (6.3-8.2)
[2024-09-06 16:50] LABS: Calcium 8.7 mg/dl (8.4-10.2); Glucose 94 mg/dl (74-100)
[2024-09-06 16:55] LABS: C-Reactive Protein 2.8 mg/L (0-4)
--- NOTE | 2024-09-06 16:55 | PC.NURSE ---
Called lab to check on the status of UDS as the order is not received after sending almost an hr ago.
[2024-09-06 17:01] LABS: NT Pro Brain Natriuretic Pep. 118 pg/mL (0-125)
[2024-09-06 17:07] LABS: Troponin I < 0.01 ng/ml (0.00-0.034)
[2024-09-06 17:10] LABS: T4 (Thyroxine) 10.1 ug/dl (5.53-11.0)
[2024-09-06 17:23] LABS: Thyroid Stimulating Hormone 2.25 uIU/mL (0.465-4.68)
[2024-09-06 17:48] LABS: Amphetamine/Metha Screen,Urine Negative ng/ml (<1000)
[2024-09-06 17:49] LABS: Barbiturates Screen,Urine Negative ng/ml (<200); Benzodiazepines Screen,Urine Negative ng/ml (<200)
[2024-09-06 17:57] LABS: Cannabinoid Screen,Urine Negative ng/ml (<50)
[2024-09-06 17:58] LABS: Cocaine Screen,Urine Negative ng/ml (<300)
[2024-09-06 18:01] LABS: Opiate Screen,Urine Negative ng/ml (<300); Phencyclidine Screen,Urine Negative ng/ml (<25)
[2024-09-06 18:08] LABS: Methadone Screen,Urine Negative ng/ml (<300)
[2024-09-06 18:20] LABS: Hemoglobin A1C 5.1 % (4.0-6.0)
[2024-09-06 18:35] VITALS: BP 115/67; PULSE 90; RESP 20; TEMP 36.8; O2SAT 97
== END 2024-09-06 18:36 | disposition home or self-care (01) ==
PROVIDERS: Emergency Provider Emergency Medicine
DX: R56.9 Unspecified convulsions (principal)
CPT/HCPCS: 80053; 80307; 81001; 81025; 82550; 83036; 83735; 83880; 84100; 84436; 84443; 84484; 85025; 86140; 93005; 96365; 99283; J1953

== ENCOUNTER 2025-06-15 22:13 | Emergency (ER) | payer BC, SELFPAY ==
--- OUTSIDE RECORDS SUMMARY | 2025-05-16 08:06 | XMS_ITS | Continuity of Care Document ---
Author Organization [facility] Phone Care Team Providers Care Home Care Giver Name Role Phone ARMEN BULLOCK Unavailable ARMEN BULLOCK Primary Attending [phone] ARMEN BULLOCK Admitting FAISAL HOGUE Primary Care ALLERGIES AND ADVERSE REACTIONS ALLERGIES AND ADVERSE REACTIONS Code System Allergy Substance Adverse Reaction Date Reaction (Severity) Comment Status Reported By Updated By No Known Allergies RESULTS Patient: FLORENTINO JAVIER Date of : November 11 9 LABORATORY RESULTS Information is not available LABORATORY NARRATIVE RESULTS Information is not available RADIOLOGY RESULTS ORDER 100: ESOPHAGRAM (LOINC : 21685-6) ORDER DATE: May 11, 2025 3:03:00 PM [facility] PERFORMING LAB: [address] [id number] Final Result Date: April 212024 3:51:[address] [place] [address] Name: CONCEPCION GOOD Exam Date: 05/11/2025 : 1995 Age 29 years Gender: F Physician: ARMEN BULLOCK Facility: [facility] Facility HSV: Outpatient Exam: ESOPHAGRAM BARIUM SWALLOW HISTORY: Dysphagia COMPARISON: None TECHNIQUE: The patient ingested thick and thin barium contrast while in the upright and horizontal position. Effervescent crystals were also administered. Spot films were obtained. FINDINGS: The esophagus is unremarkable in course, caliber and mucosal pattern. There is no hiatal hernia. There is no gastroesophageal reflux. Peristalsis is normal. A 13 mm barium tablet was administered, the tablet passes easily through the esophagus and through the gastroesophageal junction. RADIATION DOSE: Radiation exposure in reference to Air Kerma: 89.864 mGy FLUOROSCOPY TIME: 87.2 seconds FLUOROSCOPY FILMS: 10 Procedure was performed by Octavio Zuñiga PA-C under the supervision of Dr. Nadege Bhandari MD. IMPRESSION: Unremarkable esophagram. Electronically signed by: Nadege Bhandari MD 05/11/2025 03:24 PM EDT RP Dictated By: Nadege Bhandari Transcribed By: Transcribed On: 05/11/2025 11:51 AM Electronically signed by: Nadege Bhandari 05/11/2025 Thank you for referring CONCEPCION GOOD to [facility]. Legally authenticated by MARGARITO LORA MD 2025-05-11 11:51:03 ORDER 200: US THYROID (LOINC : 73081-4) ORDER DATE: May 11, 2025 3:04:00 PM [facility] PERFORMING LAB: [address] [id number] Final Result Date: April 212024 3:51:[address] [place] [address] Name: CONCEPCION GOOD Exam Date: 05/11/2025 : 1995 Age 29 years Gender: F Physician: ARMEN BULLOCK Facility: [facility] Facility HSV: Outpatient Exam: US THYROID Procedure: US THYROID Exam Date: 05/11/2025 10:51 AM CDT Indication: dysphagia Technique: Multiple ramires scale images of the thyroid gland were obtained and color images were also obtained. COMPARISON: None available at time of dictation. Findings: The thyroid gland appears normal in size, with homogeneous echogenicity. The color images demonstrate no increased vascularity in the thyroid lobes. The right lobe measures 4.9 x 1.2 x 1.7 cm The left lobe measures 4.1 x 1.3 x 1.6 cm The isthmus measures 0.3 cm No well-defined nodules are seen. Impression: Normal sonographic appearance of the thyroid gland without discrete nodules demonstrated. Electronically signed by: Nidia Arias MD 05/11/2025 03:23 PM EDT Dictated By: Nidia Arias Transcribed By: Transcribed On: 05/11/2025 11:51 AM Electronically signed by: Nidia Arias 05/11/2025 Thank you for referring CONCEPCION GOOD to [facility]. Legally authenticated by KRIS SAAVEDRA MD 2025-05-11 11:51:09 ORDER 300: MODIFIED BARIUM S WALLOW (LOINC: 11228-0) ORDER DATE: May 11, 2025 3:04:00 PM [facility] PERFORMING LAB: [address] [id number] Final Result Date: April 212024 3:51:[address] [place] [address] Name: CONCEPCION GOOD Exam Date: 05/11/2025 : 1995 Age 29 years Gender: F Physician: ARMEN BULLOCK Facility: [facility] Facility HSV: Outpatient Exam: MODIFIED BARIUM SWALLOW MODIFIED BARIUM SWALLOW HISTORY: Dysphagia PROCEDURE: The patient was observed swallowing different consistencies of barium under fluoroscopy. The examination was performed in conjunction with the speech pathologist. FINDINGS: Fluoroscopy was provided for the speech pathologist to evaluate the swallowing mechanism. The patient was given several different consistencies of barium with a swallow was visualized fluoroscopically. Across all consistencies there was no evidence of penetration or aspiration. The report of the speech pathologist should be consulted prior to making dietary decisions. RADIATION DOSE: Radiation exposure in reference to Air Kerma: 8.471 mGy. FLUOROSCOPY TIME: 61.1 seconds. VIDEO RADIOGRAPHY FILMS: 12 Cine runs were submitted. Procedure was performed by Octavio Zuñiga PA-C under the supervision of Dr. Nadege Bhandari MD. IMPRESSION: Modified barium swallow under fluoroscopic guidance. No significant episode of penetration or aspiration across all consistencies given. Please see speech pathologist's report for further details and recommendations. Electronically signed by: Nadege Bhandari MD 05/11/2025 01:45 PM EDT RP Dictated By: Nadege Bhandari Transcribed By: Transcribed On: 05/11/2025 11:51 AM Electronically signed by: Nadege Bhandari 05/11/2025 Thank you for referring CONCEPCION GOOD to [facility]. Legally authenticated by MARGARITO LORA MD 2025-05-11 11:51:14 PATHOLOGY NARRATIVE RESULTS Information is not available MICROBIOLOGY RESULTS No Micro Labs/Results Exist for Patient BLOOD ADMIN RESULTS Information is not available MEDICATIONS HOME MEDICATIONS Status RXNORM NDC Medication Dose Route Frequency Dates Comments Reported By Updated By Drug Treatment Unknown DISCHARGE MEDICATIONS Status RXNORM NDC Medication Dose Route Frequency Dates Dis pense Data Comments Physician Updated By No Discharge Medication Info rmation Available INPATIENT MEDICATIONS Status RXNORM NDC Medication Dose Route Frequency Rat e Quantity Dates Indication Dispense Data Comments Physician Updated By No Inpatient Medication Info rmation Available SOCIAL HISTORY SOCIAL HISTORY - Smoking Status SNOMED-CT Social History Element Description Effective Dates Offered Cessation Comment Updated By [id number] Smoking Status Unknown If Ever Smoked SOCIAL HISTORY - Gender Sex: Female SOCIAL HISTORY - Status : status i nformation is not available Intention in Next Year: intention information is not available SOCIAL HISTORY - Assessments Code System Description Status Date Value of Assessment Updated By Comment Assessment Information is no t available SOCIAL HISTORY - [place] Affiliation [place] information is not av ailable SOCIAL HISTORY - Legal Sex Legal Sex information is not available SOCIAL HISTORY - Sexual Behavior Sexual Orientation Gender Identity SNOMED-CT Description SNO MED -CT Description Activity Level No of Partners Partner Type UpdatedBy Information is not available SOCIAL HISTORY - Occupation Occupation information is no t available HEALTH CONCERNS Problems Concern Status Health Concern problem infor mation not available. Smoking Status Status Years Used Consumed packs p er day Health Concern smoking histo ry information not available. Family History Concern Status Health Concern family histor y information not available. ENCOUNTERS ENCOUNTER INFORMATION Reason for Visit R13.12 Admission May 11, 2025 2:55:[address] [id number] Discharge May 11, 2025 8:55:00 PM [facility] DISCHARGED TO HOME OR SELF CARE ENCOUNTER DIAGNOSES Notes information is not ronit ilable. Code System Diagnosis Onset Date Diagnosis information is not available. ABSTRACT DIAGNOSES Code System Diagnosis Updated By Abatement Date E03.9 ICD10 HYPOTHYROIDISM, UNSPECIFIED [id number] on May 16, 2025 1:05:46 PM [place] R13.12 ICD10 DYSPHAGIA, OROPHARYNGEAL PHA SE [id number] on May 16, 2025 1:05:46 PM UTC E03.9 ICD10 HYPOTHYROIDISM, UNSPECIFIED [id number] on May 16, 2025 1:05:46 PM UTC R13.12 ICD10 DYSPHAGIA, OROPHARYNGEAL PHA SE [id number] on May 16, 2025 1:05:46 PM UTC CARE TEAM Care Home Care Giver Role ARMEN BULLOCK Referring ARMEN BULLOCK Primary Attending ARMEN BULLOCK Admitting FAISAL HOGUE Primary Care CARE TEAM CARE musical string maker Role on Team Location Telecom Status Start Date End Gianfranco e Updated By LENNIE Mathur APRN PCP normal May 04, 2025 5:40:15 PM UTC May 11, 2025 8:55:00 PM UTC [id number] on May 04, 2025 5:40:15 PM UTC ARA AYERS MD Referring normal May 04, 2025 5:40:15 PM UTC May 11, 2025 8:55:00 PM UTC [id number] on May 04, 2025 5:40:15 PM UTC ARA AYERS MD Attending normal May 04, 2025 5:40:15 PM UTC May 11, 2025 8:55:00 PM UTC [id number] on May 04, 2025 5:40:15 PM [facility] ARA AYERS MD Admitting normal May 04, 2025 5:40:15 PM UTC May 11, 2025 8:55:00 PM UTC [id number] on May 04, 2025 5:40:15 PM UTC
--- OUTSIDE RECORDS SUMMARY | 2025-06-15 22:23 | XMS_ITS | Clinical Summary ---
Author Organization [facility] Address [address] [place] [address] Care Team Providers Care Plastic Bubble Packer Name Role Phone Seth Grimaldo MD Primary Care Provider [phone] Allergies Active Allergy Reactions Criticality Noted Date Comments Aspirin Unknown - Patient st ates they do not know rxn details Low 06/04/2024 Sulfa Drugs Unknown - Patient st ates they do not know rxn details Low 06/04/2024 Family History 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 Relation Name Comments Migraines Father Relation Name Status Comments Father Social History Tobacco Use Types Packs/Day Years Used Date Smoking Tobacco: Never Smokeless Tobacco: Never Tobacco Cessation:Counseling Given: Not Answered Alcohol Use Standard Drinks/Week Comments Never 0 (1 standard drink = 0.6 oz pur e alcohol) Comments Unknown Sex and Gender Information Value Date Recorded Sex Assigned at Not on file Legal Sex Female 1:53 PM EST Gender Identity Not on file Sexual Orientation Not on file Last Filed Vital Signs Vital Sign Reading Time Taken Comments Blood Pressure 109/74 06/05/2024 1:27 AM EST Pulse 79 06/05/2024 1:27 AM EST Temperature 36.6 C (97.9 F) 06/05/2024 1:27 AM EST Respiratory Rate 12 06/05/2024 1:27 AM EST Oxygen Saturation 100% 06/05/2024 1:27 AM EST Inhaled Oxygen Concentration - - Weight 97.3 kg (214 lb 8.1 oz) 06/04/2024 10:34 PM EST Height - - Body Mass Index - - Plan of Treatment Health Maintenance Due Date Last Done Comments [facility]-Depression Screening 1995 [facility]-/Child/Adol SDOH Screenings 1995 [facility]-Hepatitis B Vaccines (3 of 3 - 3-dose series) 08/16/1996 06/21/1996, 1995 [facility]-IPV Vaccines (4 of 4 - 4-dose series) 1999 06/21/1996, 03/24/1996, 01/19/1996 [facility]-Varicella Vaccines (1 of 2 - 13+ 2-dose series) 11/11/2008 [facility]- SDOH Screenings 11/11/2013 [facility]-Adult SDOH Screenings 11/11/2013 [facility]-Pap Smear 11/11/2016 HPV Vaccines (1 - 3-dose SCDM series) 11/11/2022 [id number]-[id number]-13 Vaccine ( - 2024- season) 2025 [facility]-Influenza Vaccine (#1) 2025 05/11/2019, [facility]-DTaP,Tdap,and Td Vaccines (8 - Td or Tdap) 02/08/2031 02/08/2021, 07/04/2020, 12/31/2006, Additional history exists [facility]-Zoster Vaccines (1 of 2) 11/11/2045 [facility]-HIB Vaccines Aged Out 06/21/1996, 10/1995, 01/19/1996 No longer eligible based on patient's age to complete this topic [facility]-Hepatitis A Vaccines Aged Out 08/27/2018, 01/2018 No longer eligible based on patient's age to complete this topic [facility]-HIV Screening Completed 06/04/2024 [facility]-Hepatitis C Screening Completed 06/04/2024 [facility]-Pneumococcal Vaccine: Pediatrics (0 to 5 Years) and At-Risk Patients (6 to 49 Years) Aged Out No longer eligible based on patient's age to complete this topic [facility]-Rotavirus Vaccines Aged Out No lo nger eligible based on patient's age to complete this topic Procedures Procedure Name Priority Date/Time Associated Diagnosis Comments HEPATITIS C ANTIBODY - ED W/REFLEX TO HCV QUANT PCR STAT 06/04/2024 10:15 PM EST ED HIV 1/2 ANTIBODY/ANTIGEN SCREEN WITH REFLEX TO HIV I/II DIFFERENTIATION STAT 06/04/2024 10:15 PM EST from Last 3 Months or Most Recently Relevant to Health Maintenance Results * ED HIV 1/2 Antibody/Antigen Screen w/Reflex to HIV 1/2 Differentiation (06/04/2024 10:15 PM EST) Pathologist [facility] HIV 1 & 2 Antibody/Antigen Screen Non Reactive Non Reactive 06/04/2024 11:15 PM EST [facility] Comment:Screening for HIV 1 & 2 antibodies, and P24 antigen is NONREACTIVE. No confirmatory testing is required. Blood Venous blood specimen / Unknown Venipuncture / Unknown 06/04/2024 10:15 PM EST 06/04/2024 10:34 PM EST Wero Jimenez MD LAB BLOOD ORDERABLES Final Result Performing Organization Address [facility] Co de Phone Number [facility] [address] [place] [address] * Hepatitis C Antibody - ED (06/04/2024 10:15 PM EST) Pathologist [facility] Hepatitis C Antibody Negative Negative 06/04/2024 11:17 PM EST [facility] Blood Venous blood specimen / Unknown Venipuncture / Unknown 06/04/2024 10:15 PM EST 06/04/2024 10:34 PM EST Wero Jimenez MD LAB BLOOD ORDERABLES Final Result Performing Organization Address City/[facility] Co de Phone Number [facility] [address] [place] [address] from Last 3 Months or Most Recently Relevant to Health Maintenance Insurance Care Teams Plastic Bubble Packer Relationship Specialty Start Date End Date Seth Grimaldo MD [address] [place] [address] PCP - General Internal Medicine 06/04/24
--- OUTSIDE RECORDS SUMMARY | 2025-06-15 22:23 | XMS_ITS | Data Portability ---
Author Organization [facility] Address [address] [place] [address] Care Team Providers Care Supply Planner Name Role Phone ARMEN BULLOCK Primary Care Provider TONY AGUIRRE Tablet Repair Assessment No assessment recorded. Plan of Treatment Reminders Order Date Submit Date Provider Last Modified By Organization Details Last Modified Time Details Appointments None recorded. Lab None recorded. Referral None recorded. Procedures None recorded. Surgeries None recorded. Imaging None recorded. Medication Orders midodrine 5 mg tablet 2024 025 [facility], [address], [place], [address], 15:24:49 Patient TargetsNo targets recorded. Patient Instructions Encounter Date Encounter Id Patient Instructions Last Modified By Organization Details Last Modified Time 07/23/2024 [id number] body mass index: care instructions [email or web address] Not available 07/23/2024 15:26:50 11/05/2024 [id number] body mass index: care instructions Not available 11/05/2024 11:51:21 Reason for Referral None Reported. Results Created Date Observation Date Name Description Value Unit Range Abnormal Flag Note LastModifiedBy Organization Detail LastModifiedTime 07/23/1907/23/2024 elect keyanna diogr am No observ ation record ed. BARCODE Not Available 2024 15:41:26 Result Notes None recorded. Procedures Surgical History Date Name Laterality Status Provider Name and Address Organization Details Recorded Time 025 EKG completed TONY AGUIRRE, CHURCH WARDEN [address] [place], [address], [facility] 07/23/2024 14:38:58 023 cholecystectomy completed Ruby Barbara [facility] 07/23/2024 14:26:51 delivery completed Ruby Barbara [facility] 07/23/2024 14:26:35 Imaging Results None recorded. Procedure Notes None recorded. Medical Equipment None Reported. Allergies Allergen ID Allergen Name Allergen Category Reaction Reaction Severity Criticality Documentation Date Start Date Code Code System Note Provider Name and Address Organization Details Recorded Time 381073 Substance with sulfonami de structure and antibacte rial mechanism of action (substanc e) medicatio n hives severe high 07/23/2024 77184 8003 SNOMED Ruby Overstree t [facility] 14:18:14 666422 aspirin medicatio n hives severe high 07/23/2024 1191 RxNorm Ruby Overstree t [facility] 14:18:30 Medications Name Sig Start Date Stop Date Status Note LastModified by Organization Details LastModified Time midodrine 5 mg tablet TAKE 1 TABLET BY MOUTH THREE TIMES DAILY 2024 active Not Available Not Available Not Avai lable folic acid 400 mcg tablet Take 1 tablet every day by oral route. active Not Available Not Available No t Available levothyro xine 75 mcg tablet Take 1 tablet every day by oral route. active Not Available Not Available No t Available Tylenol 325 mg tablet Take 2 tablets every 6 hours by oral route. active prn Not Available Not Available No t Available Topamax 100 mg tablet Take 1 tablet twice a day by oral route. active Not Available Not Available No t Available Abilify 5 mg tablet Take 1 tablet every day by oral route. active Not Available Not Available No t Available Michael Aspirin active patient states she can take michael baby aspirin 81mg po daily without allergic reaction Not Available Not Available Not Available B12 active patients 5000mg of B12 po daily Not Available Not Available Not Available Motrin IB 200 mg capsule Take 1 capsule every 6 hours by oral route. active prn Not Available Not Available No t Available Nurtec ODT 75 mg disintegr ating tablet Take by oral route. active prn Not Available Not Available No t Available Qulipta 60 mg tablet Take 1 tablet every day by oral route. 11/05 completed Not Available Not Available Not Available Vitals Date Recorded Body weight Body mass index (BMI) Body height Heart rate Oxygen saturation Systolic And Diastolic Provider Name and Address Organization Details Last Updated DateTime 807146. 45 g 34.9 kg/m2 172.72 cm 74 /min 95 % 104/64 mm[Hg] Ruby Palaciochachapilar villar [facility] 14:17:33 Date Recorded Body height Body mass index (BMI) Body weight Oxygen saturation Heart rate Systolic And Diastolic Provider Name and Address Organization Details Last Updated DateTime 172.72 cm 38.1 kg/m2 433660. 25 g 99 % 77 /min 110/64 mm[Hg] Tereza Duartejeffrey [facility] 11:25:10 Social History Question Answer Notes LastModified by [employer] Details LastModified Time Tobacco Smoking Status Never Smoker Ruby Jimenez johnathon [facility] 07/23/2024 14:25:47 What Is Your Level Of Caffeine Consumption? Occasional Information not available 07/23/2024 What Was The Date Of Your Most Recent Tobacco Screening? 07/23/2024 Information not available 07/23/2024 How Many Children Do You Have? 2 Information not available 07/23/2024 What Is Your Relationship Status? Information not available 07/23/2024 Sex: Unknown Functional Status Question Answer Note LastModified by [employer] Details LastModified Time Do you use any illicit or recreational drugs? No Information not available 07/23/2024 Do you or have you ever used any other forms of tobacco or nicotine? No Information not available 07/23/2024 What is your level of alcohol consumption? None Information not available 07/23/2024 Are you currently employed? 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 Family History Relationship Description Onset Age of this Age Resolved Age Notes LastModified by Organization Details LastModified Time Mother Hypertensive disorder Not available 09/2024 14:24:55 Father Hypertensive disorder Not available 09/2024 14:25:08 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 Condition Response Coronary Artery Disease N Thyroid Disease N Atrial Fibrillation N Heart Arrhythmia N COPD N Lung Disease N Pacemaker N Peripheral Arterial Disease N Nervous Illness N Edema N Vascular Disease N Anxiety Disorder N Hiatal hernia N Acid Reflux (GERD) N Cancer N Stroke N History of Blood Thinners N Blood Thinners N Shortness of Breath N High Cholesterol N Arrhythmia N Endocrine Disorder N Heart Problems N Heart Conditions N Implanted Cardiac Device N Black Lung N Thyroid Problems Y Chest Pain N Ulcers N Heart Attack (ID) N Diabetes N Rheumatic Fever N Cardiomyopathy N Bleeding Disorder N Heart Murmur N Tuberculosis N AIDS/HIV N Congestive Heart Failure (CHF) N Hyperlipidemia N Asthma N Cardiac Disease N Peripheral Vascular Disease N Jaundice N Sleep Apnea N GERD/Reflux N Warfarin Management N Heart Disease N Restless leg syndrome N Hypertension N Gynecological HistoryNo gynecological history recorded. Obstetrics History GPAL:G 0 P 0 0 0 0 Past Encounters Encounter ID Performer Location Encounter Start Date Encounter Closed Date Diagnosis/Indication Diagnosis SNOMED-CT Code Diagnosis ICD10 Code Diagnosis IMO Codes Diagnosis Note [id number] TONY AGUIRRE APRN CARDIOLOG Y [address] [place] [address] 07/23/2024 14:02:13 07/23/2024 15:25:05 Orthostatic hypotension 50063722 I95.1 Taking midodrine 5 mg twice dailyCan increase to three times per dayCouns ed patient to wear compressio n stockings, continue taking salt tabs, increase water intake.Fol low up in 3 mo Patent foramen ovale 204 753515 Q21.12 ECHO 05/27/2024: Agitated saline injection was performed. A small amount of bubbles arenoted in the left ventricle c/w a small right to left shunt. The bubblesapp ear early, suggestive of an inter-atri al level shunt.Norm al sized left ventricle. Normal left ventricula r systolic function. Visually estimated ejectionfr action 60% +/- 5%.Normal left ventricula r diastolic function.N o hemodynami juan carlos significan t valvular heart disease.No masses or thrombi are seen. 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 Following with neurology. Had holter monitor after hospital visit at [facility], need to find resultsWil l follow up in 3 months to reassess after she has ablation for excessive uterine bleeding. Pre-surger y evaluation 196923656 Z01.818 Patient scheduled for NovaSure for heavy menstrual bleeding.E KG today is unrevealin g. She is stable from a cardiac perspectiv e.0.3 % Risk of myocardial infarction or cardiac arrest, intraopera tively or up to 30 days post-op per Dasha Perioperat mary lou Risk for Myocardial Infarction or Cardiac ArrestOK to proceed with planned surgery without cardiac testing. Body mass index 30+ - obesity 303882761 Z68.34 BMI 34.9Counse led patient on the importance of healthy diet and aerobic exercise, goal of 120-150 mins per week. 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 Following with neurology. Reports she has not had recurrence of syncope in > 6 weeks Patent foramen ovale 204 470218 Q21.12 ECHO 05/27/2024: Agitated saline injection was performed. A small amount of bubbles arenoted in the left ventricle c/w a small right to left shunt. The bubblesapp ear early, suggestive of an inter-atri al level shunt.Norm al sized left ventricle. Normal left ventricula r systolic function. Visually estimated ejectionfr action 60% +/- 5%.Normal left ventricula r diastolic function.N o hemodynami juan carlos significan t valvular heart disease.No masses or thrombi are seen. Body mass index 30+ - obesity 234576484 Z68.34 BMI 38.1Counse led patient on the importance of healthy diet and aerobic exercise, goal of 120-150 mins per week. Health Concerns Section Related Observation LastModified by Organization Detai ls LastModified Time None Recorded Concern Status LastModified by Organization Details LastModified Time None Recorded Advance Directives Directive None Recorded Payers Insurance Date Sequence Insurance Name Policy Number Policy Calvillo Covered Member ID Calvillo Member ID Guarantor Name 05/06/2025 1 [id number] ([facility]) [id number] Sharee Espinal [id number] Sharee Espinal Notes Date Note Type Note Provider Name and Address Organization Details Recorded Time 07/23/2024 text/html ROS as noted in the HPI Patient is a 28-year-old female that presents today as a new patient by referral of ___ for evaluation for syncope. 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 ECHO 05/27/2024:Agitated saline injection was performed. A small amount of bubbles arenoted in the left ventricle c/w a small right to left shunt. The bubblesappear early, suggestive of an inter-atrial level shunt.Normal sized left ventricle.Normal left ventricular systolic function. Visually estimated ejection fraction 60% +/- 5%.Normal left ventricular diastolic function.No hemodynamically significant valvular heart disease.No masses or thrombi are seen. Also had holter monitor. Need to request/find results.Has had several episodes of hemiplegic weakness and vision loss. Always preceded by headache. Also several episodes of syncope, loss of consciousness for up to 2 minutes. Has been using salt packets, she notes this has helped. Increased caffeine intake. Takes midodrine twice daily. Has been seen by neurology. Has been diagnosed with hemiplegic migraines. 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 Scheduled for 08/04. Needs cardiac clearance.Has history of cluster headaches, was not supposed to be on Estrogen, was put on Sprintec back in April before all of these episodes occurred. Reports bounding pulses, palpitations.Denies CP, LE edema, orthopnea, PND. TONY AGUIRRE, CHURCH WARDEN [address] [place], [address], [facility] 07/27/2024 09:13:00 11/05/2024 text/html ROS as noted in the HPI Patient is a 28-year-old female that has PMHx of orthostatic hypotension, PFO, and syncope. 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 ECHO 05/27/2024:Agitated saline injection was performed. A small amount of bubbles arenoted in the left ventricle c/w a small right to left shunt. The bubblesappear early, suggestive of an inter-atrial level shunt.Normal sized left ventricle.Normal left ventricular systolic function. Visually estimated ejection fraction 60% +/- 5%.Normal left ventricular diastolic function.No hemodynamically significant valvular heart disease.No masses or thrombi are seen. Has history of hemiplegic weakness and vision loss. Always preceded by headache. Also several episodes of syncope, loss of consciousness for up to 2 minutes. Reports today for follow upShe has not had episode of syncope in > 6 weeksDiagnosis of hemiplegic migraines and autonomic dysfunction by neurology and changed medication to topamax and she reports this has helped her symptoms.She is still taking midodrine tid, BP has been more stable around 110s/60s. Continues to use salt packets as needed.she underwent gynecological ablation, this has helped her heavy menstruationDenies CP, SOA, LE edema, orthopnea, PND, palpitations. ELLA MCMANUS PA-C [address] [place], [address], [facility] 11/05/2024 12:15:30 OBGyn Episode No OBEpisode recorded.
[2025-06-15 22:24] VITALS: BP 136/88; PULSE 88; RESP 18; TEMP 36.8; O2SAT 97; BMI 39.5
--- OUTSIDE RECORDS SUMMARY | 2025-06-15 22:24 | XMS_ITS | Clinical Summary ---
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 Active levothyroxine (SYNTHROID) 75 MCG tablet Take 1 tablet (75 mcg total) by mouth Every morning on an empty stomach. 30 tablet 05/27/2024 Active folic acid (FOLVITE) 400 MCG tabletIndicatio ns:Folate deficiency Take 1 tablet (400 mcg total) by mouth daily. 30 tablet 1 07/09/2024 07/09/20 25 Active midodrine (PROAMATINE) 5 MG tablet Take 1 tablet (5 mg total) by mouth 3 (three) times daily with meals. Active metoclopramide (REGLAN) 10 MG tablet Take 1 tablet (10 mg total) by mouth daily as needed (for Nausea) Take during migraine as directed . Active topiramate (TOPAMAX) 100 MG tablet Take 1 tablet (100 mg total) by mouth daily. Active Active Problems Problem Noted Date Diagnosed Date Abnormal electroencephalogram (EEG) 09/11/2024 Nonepileptic episode 09/08/2024 Hemiplegic migraine without status migrainosus, not intractable 07/08/2024 Folate deficiency 07/08/2024 Syncope 05/24/2024 Pain 01/25/2023 Family History 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 Relation Name Comments Hypertension Father Hypothyroidism Father Hypertension Mother Diabetes Paternal Aunt Anjum hannah Relation Name Status Comments Father Alive Mother Alive Paternal Aunt Anjum hannah Social History Tobacco Use Types Packs/Day Years Used Date Smoking Tobacco: Never Smokeless Tobacco: Never Tobacco Cessation:Counseling Given: Not Answered Alcohol Use Standard Drinks/Week Comments Never 0 (1 standard drink = 0.6 oz pur e alcohol) Utilities Answer Date Recorded In the past 12 months, has t he electric, gas, oil, or water company threatened to shut off services in your home? Yes 09/08/2024 Interpersonal Safety Answer Date Record ed How often does anyone, alexx ruth family and friends, physically hurt you? Never 09/08/2024 How often does anyone, alexx ruth family and friends, insult or talk down to you? Never 09/08/2024 How often does anyone, alexx ruth family and friends, threaten you with harm? Never 09/08/2024 How often does anyone, alexx ruth family and friends, scream or curse at you? Never 09/08/2024 Housing Stability Answer Date Recorded What is your living situation today? I have a [facility] to live 09/08/[address] you li ve. Do you have problems with any of the following? Mold 09/08/2024 Food Insecurity Answer Date Recorded Within the past 12 months, y ou worried that your food would run out before you got money to buy more. Never true 09/08/2024 Within the past 12 months, t he food you bought just didn't last and you didn't have money to get more. Never true 09/08/2024 Transportation Needs Answer Date Record ed In the past 12 months, has l ack of reliable transportation kept you from medical appointments, meetings, work or from getting things needed for daily living? Yes 09/08/2024 Financial Resource Strain Answer Date R ecorded How hard is it for you to pa y for the very basics like food, housing, medical care, and heating? Would you say it is: Not hard at all 09/08/2024 Employment Answer Date Recorded Do you want help finding or keeping work or a job? I do not need or want help 09/08/2024 Family and Community Support Answer Gianfranco e Recorded If for any reason you need h elp with day-to-day activities such as bathing, preparing meals, shopping, managing finances, etc., do you get the help you need? I don't need any help 09/08/2024 Feeling Lonely or Isolated 0 09/08 Educational Attainment Answer Date Gigi rded Do you speak a language other than [place]ian at [facility]? No 09/08/2024 Do you want help with school or training? For example, starting or completing job training or getting a high school diploma, GED or equivalent. No 09/08/2024 Physical Activity Answer Date Recorded Number of minutes of exercise per week 40 09/08/2024 Self Management Answer Date Recorded Because of a physical, menta l, or emotional condition, do you have serious difficulty concentrating, remembering, or making decisions? (5 years or older) No 09/08/2024 Because of a physical, menta l, or emotional condition, do you have difficulty doing errands alone such as visiting a doctor's office or shopping? (15 years or older) No 09/08/2024 Substance Use Answer Date Recorded How many times in the past y ear have you used prescription drugs for non-medical reasons? Never 09/08/2024 How many times in the past year have you used [place] legal drugs? Never 09/08/2024 Mental Health Answer Date Recorded Calculation of above two rows 0 Comments No Sex and Gender Information Value Date Recorded Sex Assigned at Not on file Legal Sex Female 5:28 PM CDT Gender Identity Not on file Sexual Orientation Not on file Last Filed Vital Signs Vital Sign Reading Time Taken Comments Blood Pressure 122/78 10/06/2024 8:48 AM EDT Pulse 88 10/06/2024 8:48 AM EDT Temperature 36.5 C (97.7 F) 09/11/2024 8:51 AM EST Respiratory Rate 19 09/11/2024 8:51 AM EST Oxygen Saturation 97% 09/11/2024 8:51 AM EST Inhaled Oxygen Concentration - - Weight 108.4 kg (239 lb) 10/06/2024 8:48 AM EDT Height 172.7 cm (5' 8 ) 10/06/2024 8:48 AM EDT Body Mass Index 36.34 10/06/2024 8:48 AM EDT Plan of Treatment Health Maintenance Due Date Last Done Comments Depression Screening (12+) 2007 HIV Screening 11/11/2010 Hepatitis C Screening 11/11/2013 Pap Smear 11/11/2016 COVID-19 VACCINE ( season) 2025 Influenza Vaccine (#1) 2025 Tobacco Cessation Counseling and Screening (12+) 09/08/2025 09/08/2024 Lipid Panel 05/25/2027 05/25/2024 DTAP/TDAP/TD VACCINES (8 - Td or Tdap) 02/08/2031 02/08/2021, 07/04/2020, 12/31/2006, Additional history exists Pneumococcal Vaccine: 0-49 Years Aged Out No longer eligible based on patient's age to complete this topic Procedures Procedure Name Priority Date/Time Associated Diagnosis Comments LIPID PANEL STAT 05/25/2024 6:59 AM EST from Last 3 Months or Most Recently Relevant to Health Maintenance Results * (ABNORMAL) Lipid panel (05/25/2024 6:59 AM EST) Triglycerides 78 0 - 249 mg/dL 05/25/2024 7:52 AM EST [facility] Cholesterol 134 0 - 199 mg/dL 05/25/2024 7:52 AM EST [facility] Comment: 200 to 239 mg/dL = Moderate (borderline) >239 mg/dL = High HDL Cholesterol 37(L) >=40 mg/dL 05/25/2024 7:52 AM EST [facility] Comment: >=60 mg/dL = Desirable <40 mg/dL = Increased Risk All other components are listed individually or are calculations VLDL Cholesterol 15.6 5 - 40 mg/dL 05/25/2024 7:52 AM EST [facility] Cholesterol/HDL ratio 3.6(H) 0.0 - 3.2 05/25/2024 7:52 AM EST [facility] LDl/HDL Ratio 2 0 - 4 05/25/2024 7:52 AM EST [facility] RISK COMP 4 05/25/2024 7:52 AM EST [facility] LDL Cholesterol, Calculated 81 0 - 99 mg/dL 05/25/2024 7:52 AM EST [facility] Blood Venipuncture / Unknown 05/25/2024 6:59 AM EST 05/25/2024 7:02 AM EST us Nidia Jennings MD LAB BLOOD ORDERABLES Final Resul t [facility] [address] [phone] from Last 3 Months or Most Recently Relevant to Health Maintenance Insurance BLUE [employer]OSS/[employer]UE [employer] Advance Directives For more information, please contact: [phone] * Full Code (Latest Code Status on File) Date Activated Date Inactivated Comments 09/08/2024 4:21 PM 09/11/2024 1:54 PM * Full Code Date Activated Date Inactivated Comments 05/24/2024 1:50 PM 05/27/2024 3:45 PM * Full Code Date Activated Date Inactivated Comments 01/25/2023 2:47 AM 01/25/2023 6:12 PM Care Teams Woodworker Helper Relationship Specialty Start Date End Date Seth Grimaldo MD [address] [place] [address] [place] [id number] PCP - General Adolescent Medicine 01/27/23 Seth Grimaldo MD [address] [place] [address] [place] [id number] Adolescent Medicine 01/27/23
--- OUTSIDE RECORDS SUMMARY | 2025-06-15 22:24 | XMS_ITS | Data Portability ---
Author Organization [employer] [facility] Address [address] [place] [address] Assessment Encounter Date Assessment Date Assessment LastModified by Organization Details LastModified Time 07/01/2024 07/01/2024 Menorrhagia. Has developed complicated medical history over the last year. SEE HPI. Check CBC today and a TVUS for IUD placement. Discussed satisfaction rates of ablation and IUD's. [email or web address] Not available 07/01/2024 11:39:11 07/15/2024 07/15/2024 Plan NOVASURE/hyster oscopy, possible polypectomy with Myosure , pending cardiology clearance. Preop 07-29-24. EMB done today. [email or web address] Not available 07/15/2024 10:49:54 07/29/2024 07/29/2024 Menorrhagia. IUD did not help. IUD removed 07/15/24, has been abstinent since then. Patent foramen Ovale. Have cardiology clearance. as [email or web address] Not available 07/29/2024 12:07:16 08/12/2024 08/12/2024 NL postop check. No restrictions. f/u prn or 1 year. [email or web address] Not available 08/12/2024 13:22:44 Plan of Treatment Reminders Order Date Submit Date Provider Last Modified By Organization Details Last Modified Time Details Appointments None recorded. Lab CBC w/ auto diff 2023 024 CORPUS CHRISTI [facility] ([place]), [address] [place] [address], [place], [address], 4 02:06:29 Referral cardiologis t referral 2023 024 [email or web address] Montgomery FEEDER OPERATOR, [facility] , [facility], [place], [address], 4 11:26:18 Procedures None recorded. Surgeries hysteroscop y, with endometrial ablation (SURG) 2024 025 [email or web address] oSham [facility] Pre-Op [facility], [address] [place] [address] , [place], [address], 12:25:35 Imaging None recorded. Medication Orders None recorded. Patient TargetsNo targets recorded. Patient Instructions Encounter Date Encounter Id Patient Instructions Last Modified By Organization Details Last Modified Time 07/01/2024 [id number] heavy menstrual periods: care instructions [email or web address] Not available 07/01/2024 11:25:49 08/06/2024 [id number] body mass index: care instructions Not available 08/06/2024 12:00:33 learning about healthy weight Not available 08/06/2024 12:00:33 08/12/2024 [id number] heavy menstrual periods: care instructions [email or web address] Not available 08/12/2024 13:23:24 Reason for Referral Architectural Technician Referral for Co ngenital anomaly of heart valve Referring Physician: Adan Pierce, BOILER OPERATOR HELPER, Encounter Date: 07/15/2024 Results Created Date Observation Date Name Description Value Unit Range Abnormal Flag Note LastModifiedBy Organization Detail LastModifiedTime 08/05/1908/05/2024 RFS-P ATHOL OGY SPECI MEN REQUE ST pathreq Patho logy [address] [place] [address] Phone or [phone] Fax Jh moses Jr., M.D., Medic al Direc tor [facility] [address] : [place] [address] Phone Numbe r: [id number] [id number] Pam bonds M.D. PATHO LOGY REPOR T Patie nt Name: CODY Mathur Date of : 1995 Age/S ex: 28/F Accou nt Numbe r: [id number] Medic al Recor d Numbe r: [id number] 1 Order ing MD: ADAN ESCALONA III Date Colle cted : 2024 Date Recei frederick : 2024 Date Repor justin : 2024 Exam: Biops y Acces sarah# : [id number] Labor atory #: [id number] Copie s To: BESSO N AIMEE EN Techn ician : Clini pepito Histo ry Exces sive and frequ ent menst ruati on with regul ar cycle BodyS ite ENDOM ETRIU M, CURET TINGS Gross Descr iptio n Label ed endo metri al curet tings consi sts of multi ple piece s of mckeon-b rown soft tissu e measu ring 5.0 x 2.7 x 1.0 [address] in aggre gate. Speci men is filte red and submi tted entir nilson in 5 block s. BKO Micro scopi c Descr iptio n Secti ons confi rm proli ferat mary lou phase endom etriu m with sultana al hemor rhage , intra vascu lar fibri n throm bi, and areas of break down. Gland s are tubul ar to tortu ous with some cysti c dilat ion, with tubal metap lasia , mitot ic activ ity, and no atypi a or crowd ing. There are a numbe r of polyp oid fragm ents with thick kathy d vesse ls centr ally, consi stent with porti ons of endom etria l polyp . No hyper plasi a or malig emily is seen. Final Diagn osis BLEED ING ENDOM ETRIU M, POLYP FRAGM ENTS EJT/[place] [address] Legal ly authe ntica justin by PAM KENNY MD 08-05 13:04 :00 Not Available [facility] ([facility]Op [facility]) [address] [place] [address] [place], [address], 08/05/2024 13:26:49 07/01/20 24 07/02/2024 CBC WITH DIFFE RENTI AL/PL ATELE T WBC 8.9 x10e3 /uL 3.4-10 .8 normal Not Available [facility] ([facility]) [address] [place], [address], 07/02/2024 02:06:26 07/01/20 24 07/02/2024 CBC WITH DIFFE RENTI AL/PL ATELE T RBC 4.47 x10e6 /uL 3.77-5 .28 normal Not Available [facility] ([facility]) [address] [place], [address], 07/02/2024 02:06:26 07/01/20 24 07/02/2024 CBC WITH DIFFE RENTI AL/PL ATELE T hemoglobin 12.3 g/dL 11.1-1 5.9 normal Not Available [facility] ([facility]) [address] [place], [address], 07/02/2024 02:06:26 07/01/20 24 07/02/2024 CBC WITH DIFFE RENTI AL/PL ATELE T hematocrit 38.6 % 34.0-4 6.6 normal Not Available [facility] ([facility]) [address] [place], [address], 07/02/2024 02:06:26 07/01/2007/02/2024 CBC WITH DIFFE RENTI AL/PL ATELE T MCV 86 fL 79-97 normal Not Available [facility] ([facility]) [address] [place], [address], 07/02/2024 02:06:26 07/01/20 24 07/02/2024 CBC WITH DIFFE RENTI AL/PL ATELE T MCH 27.5 pg 26.6-3 3.0 normal Not Available [facility] ([facility]) [address] [facility], [place], [address], 07/02/2024 02:06:26 07/01/20 24 07/02/2024 CBC WITH DIFFE RENTI AL/PL ATELE T MCHC 31.9 g/dL 31.5-3 5.7 normal Not Available [facility] ([facility]) [address] [facility], [place], [address], 07/02/2024 02:06:26 07/01/20 24 07/02/2024 CBC WITH DIFFE RENTI AL/PL ATELE T RDW 12.3 % 11.7-1 5.4 Not Available [facility] ([facility]) [address] [facility], [place], [address], 07/02/2024 02:06:26 07/01/20 24 07/02/2024 CBC WITH DIFFE RENTI AL/PL ATELE T platelets 252 x10e3 /uL 150-45 0 normal Not Available [facility] ([facility]) [address] [facility], [place], [address], 07/02/2024 02:06:26 07/01/20 24 07/02/2024 CBC WITH DIFFE RENTI AL/PL ATELE T neutrophils 70 % not estab. normal Not Available [facility] ([facility]) [address] [facility], [place], [address], 07/02/2024 02:06:26 07/01/20 24 07/02/2024 CBC WITH DIFFE RENTI AL/PL ATELE T lymphs 22 % not estab. normal Not Available [facility] ([facility]) [address] [facility], [place], [address], 07/02/2024 02:06:26 07/01/20 24 07/02/2024 CBC WITH DIFFE RENTI AL/PL ATELE T monocytes 6 % not estab. normal Not Available [facility] ([facility]) [address] [place], [address], 07/02/2024 02:06:26 07/01/20 24 07/02/2024 CBC WITH DIFFE RENTI AL/PL ATELE T eos 1 % not estab. normal Not Available [facility] ([facility]) [address] [place], [address], 07/02/2024 02:06:26 07/01/20 24 07/02/2024 CBC WITH DIFFE RENTI AL/PL ATELE T basos 1 % not estab. normal Not Available [facility] ([facility]) [address] [place], [address], 07/02/2024 02:06:26 07/01/20 24 07/02/2024 CBC WITH DIFFE RENTI AL/PL ATELE T immature cells LINING IRONER Not Available [facility] ([facility]) [address] [place], [address], 07/02/2024 02:06:26 07/01/20 24 07/02/2024 CBC WITH DIFFE RENTI AL/PL ATELE T neutrophils (absolute) 6.3 x10e3 /uL 1.4-7. 0 normal Not Available [facility] ([facility]) [address] [place], [address], 07/02/2024 02:06:26 07/01/20 24 07/02/2024 CBC WITH DIFFE RENTI AL/PL ATELE T lymphs (absolute) 1.9 x10e3 /uL 0.7-3. 1 normal Not Available [facility] ([facility]) [address] [place], [address], 07/02/2024 02:06:26 07/01/20 24 07/02/2024 CBC WITH DIFFE RENTI AL/PL ATELE T monocytes(ab solute) 0.5 x10e3 /uL 0.1-0. 9 normal Not Available [facility] ([facility]) [address] [place], [address], 07/02/2024 02:06:26 07/01/20 24 07/02/2024 CBC WITH DIFFE RENTI AL/PL ATELE T eos (absolute) 0.0 x10e3 /uL 0.0-0. 4 normal Not Available [facility] ([facility]) [address] [facility], [place], [address], 07/02/2024 02:06:26 07/01/20 24 07/02/2024 CBC WITH DIFFE RENTI AL/PL ATELE T baso (absolute) 0.1 x10e3 /uL 0.0-0. 2 normal Not Available [facility] ([facility]) [address] [facility], [place], [address], 07/02/2024 02:06:26 07/01/20 24 07/02/2024 CBC WITH DIFFE RENTI AL/PL ATELE T immature granulocytes 0 % not estab. Not Available [facility] ([facility]) [address] [facility], [place], [address], 07/02/2024 02:06:26 07/01/20 24 07/02/2024 CBC WITH DIFFE RENTI AL/PL ATELE T immature grans (abs) 0.0 x10e3 /uL 0.0-0. 1 Not Available [facility] ([facility]) [address] [facility], [place], [address], 07/02/2024 02:06:26 07/01/20 24 07/02/2024 CBC WITH DIFFE RENTI AL/PL ATELE T NRBC LINING IRONER Not Available [facility] ([facility]) [address] [facility], [place], [address], 07/02/2024 02:06:26 07/01/20 24 07/02/2024 CBC WITH DIFFE RENTI AL/PL ATELE T hematology comments: LINING IRONER Not Available [facility] ([facility]) [address] [facility], [place], [address], 07/02/2024 02:06:26 07/15/20 24 07/20/2024 PATHO LOGY REPOR T . Commcecil t Mater ial submi tted: . endom etriu m - ENDOM ETRIA L BIOPS Y Not Available [facility] ([facility]) [address] [facility], [place], [address], 07/20/2024 12:07:07 07/15/20 24 07/20/2024 PATHO LOGY REPOR T . Commen t Diagn osis: ENDOM ETRIA L BIOPS Y: UNDER DEVEL OPED ENDOM ETRIA L GLAND S AND DECID UALIZ ED SULTANA A NATALY TIBLE WITH PROGE STIN EFFEC T. NO HYPER PLASI A OR CARCI NOMA. [facility] 07/20 1153 Local Not Available [facility] ([facility]) [address] [facility], [place], [address], 07/20/2024 12:07:07 07/15/20 24 07/20/2024 PATHO LOGY REPOR T . Commen t David foley d: . Tawanna borges MD, Patho logis t Not Available [facility] ([facility]) [address] [facility], [place], [address], 07/20/2024 12:07:07 07/15/20 24 07/20/2024 PATHO LOGY REPOR T . Commen t Gross descr iptio n: . 1 Conta iner, forma saul-f illed , label ed with patie nt ident ifica tion. ENDOM ETRIA L BIOPS Y: MULTI PLE FRAGM ENT(S ) OF SOFT MATER IAL, BLOOD , AND MUCUS MEASU RING 2.7 X 1.9 X 0.2 CM IN AGGRE GATE. FILTE RED AND SUBMI TTED IN CASSE TTE(S ) A1. GEORGE/K YE 07/19 0534 Local Not Available [facility] ([facility]) [address] [facility], [place], [address], 07/20/2024 12:07:07 07/15/20 24 07/20/2024 PATHO ZACH Cruz . [place] CPT . [address]208 1 Not Available [facility] ([facility]) [address] [facility], [place], [address], 07/20/2024 12:07:07 08/02/19 25 08/02/2024 CBC NO DIFF (HEMO GRAM) WBC 9.52 K/uL 4.5-11 .5 Not Available [facility] (Pre-Op [facility]) [address] [place] [address] [place], [address], 08/02/2024 17:08:12 08/02/19 25 08/02/2024 CBC NO DIFF (HEMO GRAM) RBC 4.36 M/uL 4.0-5. 4 Not Available [facility] ([facility]Op [facility]) [address] [place] [address] [place], [address], 08/02/2024 17:08:12 08/02/19 25 08/02/2024 CBC NO DIFF (HEMO GRAM) HGB 11.9 g/dL 12.0-1 5.0 low Not Available [facility] (Pre-Op Clinic) [address] [place] [address] [place], [address], 08/02/2024 17:08:12 08/02/19 25 08/02/2024 CBC NO DIFF (HEMO GRAM) HCT 36.9 % 35-49 Not Available [facility] (Pre-Op [facility]) [address] [facility] [place], [address], 08/02/2024 17:08:12 08/02/1908/02/2024 CBC NO DIFF (HEMO GRAM) MCV 84.6 fL 80.0-1 00.0 Not Available [facility] ([facility]-Op [facility]) [address] [place] [address] [place], [address], 08/02/2024 17:08:12 08/02/1908/02/2024 CBC NO DIFF (HEMO GRAM) MCH 27.3 pg 26.0-3 2.0 Not Available [facility] (Pre-Op Clinic) [address] [place] [address] [place], [address], 08/02/2024 17:08:12 08/02/1908/02/2024 CBC NO DIFF (HEMO GRAM) MCHC 32.2 g/dL 32.0-3 6.0 Not Available [facility] (Pre-Op Clinic) [address] [place] [address] [place], [address], 08/02/2024 17:08:12 08/02/1908/02/2024 CBC NO DIFF (HEMO GRAM) RDW 12.5 % 11.5-1 4.5 Not Available [facility] (Pre-Op [facility]) [address] [place] [address] [place], [address], 08/02/2024 17:08:12 08/02/1908/02/2024 CBC NO DIFF (HEMO GRAM) platelet count 234 K/uL 142-42 4 Not Available [facility] ([facility]-Op [facility]) [address] [place] [address] [place], [address], 08/02/2024 17:08:12 08/02/1908/02/2024 CBC NO DIFF (HEMO GRAM) MPV 10.3 fL 6.8-10 .2 high Not Available [facility] (Pre-Op Clinic) [address] [place] [address] [place], [address], 08/02/2024 17:08:12 08/02/19 25 08/02/2024 CBC NO DIFF (HEMO GRAM) note Unles s other givens noted testi ng [facility] [address] [place] [address] Pam bonds MD Not Available [facility] (Pre-Op [facility]) [address] [facility] [place], [address], 08/02/2024 17:08:12 08/02/19 25 08/02/2024 BASIC METAB OLIC PANEL sodium 140 mmol/ L 137-14 7 Not Available [facility] ([facility]Op [facility]) [address] [place] [address] [place], [address], 08/02/2024 21:27:26 08/02/19 25 08/02/2024 BASIC METAB OLIC PANEL potassium 4.1 mmol/ L 3.5-5. 1 Not Available [facility] (Pre-Op [facility]) [address] [place] [address] [place], [address], 08/02/2024 21:27:26 08/02/19 25 08/02/2024 BASIC METAB OLIC PANEL chloride 105 mmol/ L 98-110 Not Available [facility] (Pre[facility]Op [facility]) [address] [place] [address] [place], [address], 08/02/2024 21:27:26 08/02/19 25 08/02/2024 BASIC METAB OLIC PANEL carbon dioxide 27 mmol/ L 21-30 Not Available [facility] (Pre[facility]Op [facility]) [address] [place] [address] [place], [address], 08/02/2024 21:27:26 08/02/19 25 08/02/2024 BASIC METAB OLIC PANEL anion gap 8 mmol/ L 6-14 Not Available [facility] (Pre-Op Clinic) [address] [place] [address] [place], [address], 08/02/2024 21:27:26 08/02/19 25 08/02/2024 BASIC METAB OLIC PANEL glucose 85 mg/dL 70-115 Not Available [facility] ([facility]Op [facility]) [address] [place] [address] [place], [address], 08/02/2024 21:27:26 08/02/19 25 08/02/2024 BASIC METAB OLIC PANEL BUN 14 mg/dL 7-17 Not Available [facility] ([facility]Op [facility]) [address] [place] [address] [place], [address], 08/02/2024 21:27:26 08/02/19 25 08/02/2024 BASIC METAB OLIC PANEL creatinine 0.5 mg/dL 0.5-1. 5 Not Available [facility] (Pre[facility]Op [facility]) [address] [place] [address] [place], [address], 08/02/2024 21:27:26 08/02/19 25 08/02/2024 BASIC METAB OLIC PANEL BUN/creatini ne ratio 28 10-20 high Not Available [facility] (Pre[facility]Op [facility]) [address] [place] [address] [place], [address], 08/02/2024 21:27:26 08/02/19 25 08/02/2024 BASIC METAB OLIC PANEL glom filtration rate 131 mL/mi n >60- GFR LIMIT ATION : The eGFR equat ion CKD-E PI 2020 is not appli cable for pedia tric patie nts or great er than 90 years of age. The follo wing condi tions may alter the GFR resul t: extre mes in body size, malnu triti on or obesi ty, skele marshall muscl e disea se, parap legia or quadr ipleg ia, veget bertin diet or rapid ly chandler ing kiney funct ion. Not Available [facility] (Pre[facility]Op [facility]) [address] [place] [address] [place], [address], 08/02/2024 21:27:26 08/02/19 25 08/02/2024 BASIC METAB OLIC PANEL osmolality (calculated) 291 mosmo l/kg 275-30 1 OSMOL ALITY IS A CALCU LATIO N UTILI ZING THE SERUM /PLAS MA SODIU M, GLUCO SE AND UREA NITRO GEN (BUN) LEVEL S. FOR THE MOST ACCUR ATE RESUL T A MEASU RED SERUM OSMOL ALIVERENICE IS RICHAR TAYLORD. Not Available [facility] (Pre[facility]Op [facility]) [address] [place] [address] [place], [address], 08/02/2024 21:27:26 08/02/19 25 08/02/2024 BASIC METAB OLIC PANEL calcium 8.9 mg/dL 8.5-10 .8 Not Available [facility] (Pre-Op [facility]) [address] [place] [address] [place], [address], 08/02/2024 21:27:26 08/02/19 25 08/02/2024 BASIC METAB OLIC PANEL note Unles s other givens noted testi ng perfo rmed at: [facility] [address] [place] [address] Pam bonds MD Not Available [facility] (Pre-Op [facility]) [address] [place] [address] [place], [address], 08/02/2024 21:27:26 08/04/19 25 08/04/[address] TEST urine test NEGATI VE negati ve Not Available [facility] (Pre-Op Clinic) [address] [place] [address] [place], [address], 08/04/2024 06:28:00 08/04/19 25 08/04/[address] TEST HCG urine int control PASS PASS Not Available [facility] (Pre[facility]Op [facility]) [address] [place] [address] [place], [address], 08/04/2024 06:28:00 08/04/19 25 08/04/[address] TEST note Unles s other givens noted testi ng perfo rmed at: [facility] [address] [place] [address] Pam bonds MD Not Available [facility] (Pre-Op Clinic) [address] [place] [address] [place], [address], 08/04/2024 06:28:00 07/15/20 24 07/15/2024 US, trans jessica al No observ ation record ed. Dalia [address], [place], [address], 07/15/2024 15:02:21 Result Notes None recorded. Problems Name Problem SNOMED Code Status Onset Date Resolution Date Notes Provider Name and Address Organization Details Recorded Time Body mass index 30+ - obesity 397259958 Active 2019 Problem Code: Z68.37; Problem Code Type: ICD-10; Not Available [facility] 2 21:33:07 Finding of body mass index 428956393 Active 2020 Problem Code: Z68.41; Problem Code Type: ICD-10; Not Available [facility] 2 21:33:07 Severe obesity complica ting pregnanc y [id number] 659980 Completed 2020 Problem Code: O99.213; Problem Code Type: ICD-10; Angelia diego, [employer] 4 16:40:17 Postpart um care Completed 202005/01/2021 Problem Code: V24.2; Problem Code Type: ICD-9; Not Available [facility] 2 21:33:07 Postpart um care Completed 202005/22/2021 Problem Code: V24.2; Problem Code Type: ICD-9; Not Available [facility] 2 21:33:07 General examinat ion of patient Active 2021 Not Available [facility] 2 21:33:05 Headache 30460076 Active 2022 Angelia Sheetsr null, [employer] 4 16:40:17 Headache 15352126 Completed 2022 Angeliamary ellen Sheetsr null, [employer] 4 16:40:17 Tachycar sandee 5438432 Active 2022 Angelia Rosy null, [employer] 4 16:40:17 Anxiety 33261667 Active 2022 Angelia Rosy null, [employer] 4 16:40:17 Anxiety 67191092 Completed 2022 Angelia Rosy null, [employer] 4 16:40:17 Tachycar sandee 2444567 Completed 2022 Angelia Rosy null, [employer] 4 16:40:17 Past pregnanc y history of section 437942419 Completed 2022 Angelia Rosy null, [employer] 4 16:40:17 Menorrha korey 364639375 Active 2023 Betina Goldstein APRN [address] [place] [address], [address] , [employer] 4 09:30:08 Pelvic and perineal pain 892461331 Active 2023 Betina Goldstein APRN [address] [place] [address], [address] , [employer] 4 10:02:23 Cyst of ovary 02895194 Active 2023 Betina Goldstein APRN [address] [place] [address], [address] , [employer] 4 09:56:27 Abnormal uterine bleeding 53798561702 100 Active 2023 Betina Goldstein APRN [address] [place] [address], [address] , [employer] 4 09:56:43 Congenit al anomaly of heart valve 94645936 Active 2023 Adan Pierce III, MD [address] [place] [address], [address] , [employer] 4 11:01:13 Problem Notes None recorded. Procedures Surgical History Date Name Laterality Status Provider Name and Address Organization Details Recorded Time 2023 Endometrial Biopsy completed Adan Pierce III, MD [address] [place] [address], [phone] , [employer] 4 10:59:41 2023 IUD Removal completed Adan Pierce III, MD [address] [place] [address], [address] , [employer] 4 11:00:15 2023 IUD Insertion completed Betina Goldstein APRN [address] [place] [address], [phone] , [employer] 4 10:16:19 2023 Date of Last Pap Smear completed Thi Brown [employer] 4 08:38:22 2022 endoscopic retrograde cholangiopancreatography completed [facility] [employer] 3 10:52:55 2022 Cholecystectomy completed [facility]OK [employer] 3 10:52:38 2022 SECTION (SURG) completed Idalmis Lezama MD [address] [place] [address], [phone] , [employer] 3 12:26:42 2021 section completed Not Available [facility] 2 22:56:36 Endometrial Ablation completed Rachna Brown [employer] 5 09:54:10 Imaging Results None recorded. Procedure Notes None recorded. Medical Equipment None Reported. Allergies Allergen ID Allergen Name Allergen Category Reaction Reaction Severity Criticality Documentation Date Start Date Code Code System Note Provider Name and Address Organization Details Recorded Time 28260 Substance with sulfonami de structure and antibacte rial mechanism of action (substanc e) medicatio n Not available Not available Not available 03/26/2022 10660 8003 SNOMED Judy diego, [employer], [facility]. 3 07:52:36 36625 aspirin medicatio n Not available Not available Not available 03/26/2022 1191 RxNorm Not Available [facility] 2 22:54:58 Medications Name Sig Start Date Stop Date Status Note LastModified by Organization Details LastModified Time amoxicill in 500 mg capsule TAKE 1 CAPSULE BY MOUTH THREE TIMES DAILY 11/04 completed Not Available Not Available Not Available medroxypr ogesteron e 10 mg tablet TAKE 1 TABLET BY MOUTH ONCE DAILY 05/14 completed Not Available Not Available Not Available docusate sodium 50 mg/5 mL oral liquid 11/05 completed Not Available Not Available Not Available buspirone 5 mg tablet TAKE 1 TABLET BY MOUTH TWICE DAILY 11/04 completed Not Available Not Available Not Available promethaz ine-DM 6.25 mg-15 mg/5 mL oral syrup 11/04 completed Not Available Not Available Not Available fluconazo le 150 mg tablet 11/04 completed Not Available Not Available Not Available hydrocodo ne 5 mg-acetam inophen 325 mg tablet 11/05 completed Not Available Not Available Not Available ondansetr on HCl 4 mg tablet take 1 tablet (4 mg) by oral route 2 times per day 11/05 completed Not Available Not Available Not Available sertralin e 100 mg tablet TAKE 1 TABLET BY MOUTH ONCE DAILY 11/05 completed Not Available Not Available Not Available midodrine 5 mg tablet active Not Available Not Available Not Available topiramat e 25 mg tablet active Not Available Not Available Not Available ciproflox acin 500 mg tablet TAKE 1 TABLET BY MOUTH TWICE DAILY FOR 3 DAYS 11/05 completed Not Available Not Available Not Available folic acid 400 mcg tablet active Not Available Not Available Not Available acetamino phen 500 mg tablet 11/05 completed Not Available Not Available Not Available ondansetr on 8 mg disintegr ating tablet 11/05 completed Not Available Not Available Not Available levothyro xine 75 mcg tablet TAKE 1 TABLET BY MOUTH ONCE DAILY active Not Available Not Available No t Available amoxicill in 875 mg tablet TAKE 1 TABLET BY MOUTH TWICE DAILY 11/05 completed Not Available Not Available Not Available promethaz ine 12.5 mg rectal supposito ry 11/04 completed Not Available Not Available Not Available hydrocodo ne 7.5 mg-acetam inophen 325 mg tablet TAKE 1 TABLET BY MOUTH EVERY 4 TO 6 HOURS NEEDED FOR SEVERE PAIN 11/05 completed Not Available Not Available Not Available promethaz ine 25 mg tablet Take 1 tablet every 4 hours by oral route as directed . 11/04 completed Not Available Not Available Not Available sertralin e 25 mg tablet 07/01 completed Not Available Not Available Not Available buspirone 7.5 mg tablet 11/05 completed Not Available Not Available Not Available Euthyrox 50 mcg tablet 11/04 completed Not Available Not Available Not Available Baby Aspirin 81 mg chewable tablet Chew 1 tablet every day by oral route. 08/06 completed Not Available Not Available Not Available ergocalci ferol (vitamin D2) 1,250 mcg (50,000 unit) capsule TAKE 1 CAPSULE BY MOUTH ONCE A WEEK 07/01 completed Not Available Not Available Not Available ibuprofen 600 mg tablet 11/05 completed Not Available Not Available Not Available albuterol sulfate HFA 90 mcg/actua tion aerosol inhaler INHALE 2 PUFFS BY MOUTH EVERY 6 HOURS NEEDED FOR SHORTNES S OF BREATH active Not Available Not Available No t Available sertralin e 50 mg tablet 11/05 completed Not Available Not Available Not Available colestipo l 1 gram tablet TAKE 1 TABLET BY MOUTH THREE TIMES DAILY BEFORE MEAL(S) 11/05 completed Not Available Not Available Not Available phentermi ne 37.5 mg capsule TAKE 1 CAPSULE BY MOUTH ONCE DAILY FOR 30 DAYS 05/14 completed Not Available Not Available Not Available naproxen 500 mg tablet TAKE 1 TABLET BY MOUTH TWICE DAILY NEEDED 07/01 completed Not Available Not Available Not Available diazepam 5 mg tablet 07/29 completed Not Available Not Available Not Available metoclopr amide 10 mg tablet TAKE 1 TABLET BY MOUTH EVERY 6 HOURS NEEDED FOR MIGRAINE HEADACHE active Not Available Not Available No t Available amoxicill in 875 mg-potass ium clavulana te 125 mg tablet 11/05 completed Not Available Not Available Not Available escitalop meme 10 mg tablet 08/06 completed Not Available Not Available Not Available Sprintec (28) 0.25 mg-0.035 mg tablet TAKE 1 TABLET BY MOUTH ONCE DAILY 07/01 completed Not Available Not Available Not Available Abilify 10 mg tablet Take 1 tablet every day by oral route. 05/14 completed Not Available Not Available Not Available Microgest in 08/09 (21) 1 mg-20 mcg tablet Take 1 tablet by mouth once daily 11/04 completed Not Available Not Available Not Available Stool Softener- Laxative 8.6 mg-50 mg tablet 11/05 completed Not Available Not Available Not Available aripipraz ole 5 mg tablet 08/06 completed Not Available Not Available Not Available bupropion HCl XL 150 mg 24 hr tablet, extended release 11/05 completed Not Available Not Available Not Available [facility] 100,000 unit/gram topical powder 11/05 completed Not Available Not Available Not Available Unisom (doxylami ne) 11/05 completed Not Available Not Available Not Available 11/05 completed Not Available Not Available Not Available cephalexi n 750 mg capsule take 1 capsule (750 mg) by oral route 2 times per day 03/27 completed Not Available Not Available Not Available aripipraz ole 2 mg tablet TAKE 1 TABLET BY MOUTH ONCE DAILY 07/01 completed Not Available Not Available Not Available Ria Fe 08/09 (28) 1 mg-20 mcg (21)/75 mg (7) tablet TAKE 1 TABLET BY MOUTH ONCE DAILY 11/05 completed Not Available Not Available Not Available Vraylar 1.5 mg capsule 11/05 completed Not Available Not Available Not Available [facility] ODT 75 mg disintegr ating tablet active Not Available Not Available Not Available Qulipta 60 mg tablet TAKE 1 TABLET BY MOUTH ONCE DAILY active Not Available Not Available No t Available Qulipta 30 mg tablet Take 1 tablet every day by oral route. 08/06 completed Not Available Not Available Not Available Jo-AnnSwsandra b COVID-19 Rapid Home Test kit Take 1 kit by miscell. route. 11/04 completed negative Not Available Not Available Not Available Auvelity 45 mg-105 mg tablet, extended release 07/01 completed Not Available Not Available Not Available Vitals Date Recorded Body height Body mass index (BMI) Body weight Heart rate Oxygen saturation Systolic And Diastolic Provider Name and Address Organization Details Last Updated DateTime 5 172.72 cm 35.1 kg/m2 609169. 4 g 72 /min 98 % 124/82 mm[Hg] Sharita oTrre [employer] 5 11:34:15 Date Recorded Body height Body mass index (BMI) Body weight Heart rate Oxygen saturation Systolic And Diastolic Provider Name and Address Organization Details Last Updated DateTime 5 172.72 cm 36 kg/m2 704563. 39 g 92 /min 98 % 128/70 mm[Hg] Thi Brown [employer] 5 09:52:49 Date Recorded Body height Body mass index (BMI) Body weight Heart rate Oxygen saturation Systolic And Diastolic Provider Name and Address Organization Details Last Updated DateTime 5 172.72 cm 36.1 kg/m2 016080. 55 g 77 /min 97 % 118/78 mm[Hg] Sharita Torre [employer] 5 12:59:16 Date Recorded Body height Body mass index (BMI) Body weight Heart rate Oxygen saturation Systolic And Diastolic Provider Name and Address Organization Details Last Updated DateTime 4 172.72 cm 33.7 kg/m2 097648. 15 g 80 /min 100 % 122/80 mm[Hg] Sharita Bergeraw [employer] 4 10:58:53 Date Recorded Body height Body mass index (BMI) Body weight Heart rate Oxygen saturation Systolic And Diastolic Provider Name and Address Organization Details Last Updated DateTime 4 172.72 cm 33.9 kg/m2 177958. 82 g 82 /min 99 % 126/78 mm[Hg] Kristine Lai [employer] 4 10:34:04 Social History Question Answer Notes LastModified by Organizat ion Details LastModified Time Tobacco Smoking Status Never Smoker Judy [employer]go [email or web address] 09/03/2022 07:53:09 Do You Have An Advance Directive? No Information n ot available 12/05/2022 Is Your Home Air Conditioned? Yes Information not available 12/05/2022 Do You Wear A Helmet When Biking? No Information not available 11/28/2022 Are You Blind Or Do You Have Difficulty Seeing? No Information n ot available 12/05/2022 What Is Your Level Of Caffeine Consumption? Occasional Information not available 12/05/2022 Are You A Caregiver? Yes Information not available 12/05/2022 What Type Of Content Management Specialist Do You Use? None Information not available 12/05/2022 In The 14 Days Before Symptom Onset, Have You Had Close Contact With A Laboratory-confirm ed COVID-19 While That Case Was Ill? No Information n ot available 11/28/2022 In The 14 Days Before Symptom Onset, Have You Had Close Contact With A Person Who Is Under Investigation For COVID-19 While That Person Was Ill? No Information not available 11/28/2022 Have You Been To An Area Known To Be High Risk For COVID-19? No Information not available 11/28/2022 Are You Deaf Or Do You Have Serious Difficulty Hearing? No Information not available 12/05/2022 What Type Of Diet Are You Following? REGULAR Information n ot available 11/28/2022 What Is The Highest Grade Or Level Of School You Have Completed Or The Highest Degree You Have Received? [id number] Information not available 12/05/2022 Have There Been Any Changes To Your Family Or Social Situation? No Information no t available 12/05/2022 Are There Any Guns Present In Your Home? No Information not available 12/05/2022 Which Of Your Hands Is Dominant? Right Information n ot available 12/05/2022 Do You Have A Medical Power Of [place]? No Information not available 12/05/2022 What Was The Date Of Your Most Recent Tobacco Screening? 09/03/2024 [email or web address] Information not available 09/01/2024 Do You Have Any Pets? Yes Information not available 12/05/2022 What Is Your Relationship Status? Information not available 11/28/2022 Do You Use Your Seat Belt Or Car Seat Routinely? Yes Information not available 11/28/2022 Are You Sexually Active? No Information not available 11/28/2022 Do You Have Smoke And Carbon Monoxide Detectors In Your Home? Yes Information not available 12/05/2022 Are You Passively Exposed To Smoke? No Information no t available 12/05/2022 Are There Any Smokers In Your House? No Information not available 12/05/2022 Do You Participate In Social Media? Yes Information not available 11/28/2022 Do You Use Sunscreen Routinely? Yes Information not available 12/05/2022 Has Tobacco Cessation Counseling Been Provided? Yes [email or web address] Information not available 04/15/2024 On What Date Was Tobacco Cessation Counseling Provided? 09/03/2024 [email or web address] Information not available 09/01/2024 Have You Recently Traveled Abroad? No Information not available 11/28/2022 Do You Have Difficulty Walking Or Climbing Stairs? No Information not available 12/05/2022 Are You Currently In School? No Information not available 12/05/2022 Do You Have Any Dietary Restrictions? No Information not available 11/28/2022 Sex: Female Functional Status Question Answer Note LastModified by Organizat ion Details LastModified Time Do you use any illicit or recreational drugs? No Information not available 12/05/2022 Do you or have you ever used any other forms of tobacco or nicotine? No Information not available 11/28/2022 What is your level of alcohol consumption? None Information not available 12/05/2022 Are you currently employed? No Information not available 12/05/2022 Do you have transportation difficulties? No Information not available 12/05/2022 Are you able to walk independently without assistance or assistive devices? YESWOREST Information not available 12/05/2022 Do you have difficulty doing errands alone? No Information not available 12/05/2022 Are you able to care for yourself independently? Yes Information not available 12/05/2022 Do you have difficulty dressing, bathing, grooming, or toileting? No Information not available 12/05/2022 What is your exercise level? None Information not available 12/05/2022 Mental Status Question Answer Note LastModified by Organizat ion Details LastModified Time Do you feel stressed (tense, restless, nervous, or anxious, or unable to sleep at night)? [id number] Information not available 12/05/2022 Do you have difficulty concentrating, remembering or making decisions? No Information no t available 12/05/2022 Family History Relationship Description Onset Age of this Age Resolved Age Notes LastModified by Organization Details LastModified Time Father No current problems or disability Not available 01/30 10:52:09 Mother No current problems or disability Not available 01/30 10:52:09 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 Condition Response Allergies (Food, seasonal, environmental ) N Other N Hyperthyroidism N Drug/Latex Allergies/Reactions N Breast Cancer N Blood Transfusion N Emergency room visit since last appointm ent. N Lung Disease N Hypothyroidism N Dermatologic Disorders N Defects or Inherited Disease N Breast Problem N Gestational Diabetes N Hematologic disorders N Anesthesia Complications N History of STI N Deep Vein Thrombosis N Polycystic ovary syndrome N Anxiety Disorder N Autoimmune disease N Vision or Eye Problems N Arthritis N Polyps N Infertility N Mental Disorder N Congenital Anomalies N History of abnormal pap N Acid Reflux (GERD) N Cancer N Stroke N Neurologic/Epilepsy N Endometriosis N High Cholesterol N Psychiatric/Mental Health Condition N Organ Transplant N Schizophrenia N Headaches N Fibromyalgia N Dialysis N Kidney Disease N Heart Problems N Hospitalizations N Thyroid Problems N Kidney or Bladder Problems N GI Problems N Acne N Eating Disorder N Anemia N Art (IVF or FET) N Mental Illness N Ovarian Cancer N Diabetes N Pulmonary (TB, Asthma) N Hepatitis/Liver Disease N Eczema N Abuse/Domestic Violence N Asthma N Trauma/Violence N Substance Abuse N Depression/ depression N Heart Disease N Pre-Eclampsia N Hypertension N Osteoporosis N Thrombophilias N Gynecological History Statement/Question Response Abnormal Pap N Flow Light On BCP's at Conception? N STIs/STDs N HPV Vaccine Y Duration of Flow (days) 2 Current Control Method None Age at Menarche 13 Age at First Child 25 Sexually Active? Y Menses Monthly Y Date of Last Pap Smear 11/06/2023 Sexual Problems? Y LMP Definite Desired Control Method Obstetrics History GPAL:G 2 P 2 0 0 2 Type Value Full Term 2 Living 2 Total 2 Immunizations Vaccine Type Date Status Note Provider Jacob quezada and Address Organization Details Recorded Time Tdap 02/08/2021 completed Not Available [employer] 03/26/2022 22:59:36 Past Encounters Encounter ID Performer Location Encounter Start Date Encounter Closed Date Diagnosis/Indication Diagnosis SNOMED-CT Code Diagnosis ICD10 Code Diagnosis IMO Codes Diagnosis Note [id number] Adan Pierce III, MD [facility] [place] [address] [place] [address] 05/17/2022 08:56:54 05/17/2022 10:14:22 Intrauterine 11082935 Z34.90 [id number] Adan Pierce III, MD [facility] [place] [address] [place], [place] [address] 06/17/2022 15:03:25 06/17/2022 15:46:12 [id number] Z33.1 Severe obe sity complicating 8660120409 9372599 O99.213 [id number] Adan Pierce III, MD [facility] [place] [address] [place] [address] 07/12/2022 10:05:29 07/12/2022 11:08:23 [id number] Z33.1 Severe obe sity complicating 5036604894 [id number] O99.213 [id number] Adan Pierce III, MD [facility] [place] [address] [place] [address] 07/26/2022 14:07:18 07/26/2022 15:08:32 74601574 Z33.1 Headache 54458787 R51.9 [id number] Adan Pierce III, MD [facility] [place] [address] [place] [address] 08/01/2022 09:46:22 08/01/2022 10:20:58 [id number] Z33.1 Anxiety 94989330 F41.9 [facility] 1470361 R00. 0 [facility] 207114073 Z71 .9 [id number] [facility] III[facility] [address] [place], [place] [address] 08/08/2022 09:50:49 08/08/2022 10:51:22 [id number] Z33.1 Severe obe sity complicating 3578551837 [id number] O99.213 [id number] Adan Pierce III, MD [facility] [place] [address] [place] [address] 09/05/2022 08:23:29 09/05/2022 09:42:[id number] history of section 426313742 Z98.890 [id number] Adan Pierce III, MD [facility] [place] [address] [place], [place] [address] 10/03/2022 08:21:32 10/03/2022 09:05:[id number] history of section 357998492 Z98.890 [id number] Adan Pierce III, MD [facility] [place] [address] [place] [address] 10/17/2022 09:46:04 10/17/2022 10:27:34 [id number] history of section 965936228 Z98.890 [id number] [facility] III, [facility] [address] [place], [place] [address] 10/24/2022 11:13:22 10/24/2022 11:47:13 Past history of section 054046582 Z98.890 Intrauteri ne 15392556 Z34.90 [id number] Betina Goldstein APRN [facility] [place] [address] [place] [address] 11/04/2022 12:45:01 11/04/2022 15:08:39 [id number] Z33.1 Low back p ain in 0181722004 106 O26.899 [id number] [facility] Pierce III, [facility] [address] [place], [place] [address] 11/14/2022 10:26:20 11/14/2022 11:06:32 Past history of section 298596320 Z98.890 Intrauteri ne 41793546 Z34.90 [id number] Betina Goldstein, FEEDER OPERATOR [facility] [place] [address] [place], [place] [address] 11/22/2022 15:44:02 11/22/2022 17:33:00 Low back pain in 8091861114 106 O26.899 Dysuria 62626402 R30.0 [id number] Adan Pierce III, MD [facility] [place] [address] [place] [id number] 11/28/2022 09:25:12 11/28/2022 09:47:54 Past history of section 194744083 Z98.890 Intrauteri ne 74041341 Z34.90 [id number] Adan Pierce III, [facility] [address] [place] [address] 12/05/2022 10:30:50 12/05/2022 11:34:28 Intrauterine 50934535 Z34.90 Anxiety 78671581 F41.[address] history of section 070708364 Z98.996 [id number] Adan Pierce III, MD [facility] [place] [address] [place], [place] [address] 12/26/2022 10:34:47 12/26/2022 10:47:52 Anxiety 91616288 F41.[address] history of section 455319850 Z98.231 [id number] Adan Pierce III, MD [facility] [place] [address] [place] [address] 01/30/2023 10:44:16 01/30/2023 11:15:01 Anxiety 34241211 F41.9 state 0585178 [address] Z39[id number] [facility] [address] 11/06/2023 08:30:42 11/06/2023 09:20:32 Menorrhagia 649253193 N92.0 Body mass index 30+ - obesity 995807222 Z68.38 [id number] Betina Goldstein [facility] [place] [address] 12/04/2023 08:29:17 12/04/2023 10:32:38 Body mass index 30+ - obesity 685125528 Z68.37 Irregular periods 397882 07 N92.6 Pelvic and perineal pain 850839228 R10.2 [id number] Betina Goldstein [facility] [place] [id number] 02/05/2024 08:55:37 02/05/2024 09:53:51 Body mass index 30+ - obesity 728744557 Z68.37 Cyst of ovary 32017415 N 83.209 Abnormal u terine bleeding 3676286845 9100 N93.9 [id number] Betina Goldstein [facility] [address] [place] [id number] 03/04/2024 09:23:39 03/04/2024 17:03:55 Body mass index 30+ - obesity 344219803 Z68.37 Insertion of intrauterine contraceptive device 60281661 Z30.481 [id number] Betina Rangeliamatilde [facility] [address] [place] [address] 04/15/2024 09:44:48 04/15/2024 16:21:01 Body mass index 30+ - obesity 460738259 Z68.31 Surveillan ce of intrauterine device contraception done 0682927387 97064 Z30.492 [id number] Betina Goldstein [facility] [address] [address] [place], [place] [address] 05/14/2024 09:41:09 05/14/2024 10:12:47 Body mass index 30+ - obesity 588302224 Z68.31 [id number] Adan Pierce III, MD [facility] [place] [address] [place] [address] 07/01/2024 10:46:41 07/01/2024 11:46:48 Abnormal uterine bleeding 9669893931 9100 N93.9 Menorrhagia 388695199 N9 2.0 [id number] Adan Pierce III, MD [facility] [place] [address] [address] [place] [address] 07/15/2024 10:01:17 07/15/2024 12:28:27 Congenital anomaly of heart valve 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 Q24.8 [id number] Adan Pierce III, MD [facility] [place], [place] [address] 07/29/2024 11:17:43 07/29/2024 12:10:15 Abnormal uterine bleeding 9072650189 9100 N93.9 Anxiety 04497377 F41.9 Congenital anomaly of heart valve 90160745 Q24.8 Menorrhagia 682215140 N9 2.0 [id number] Betina Goldstein, [facility] [place] [address] [place] [address] 08/06/2024 09:42:27 08/06/2024 10:38:56 Body mass index 30+ - obesity 601309937 Z68.36 Semaglutid e .25mg weekly SQ sent to [facility] [id number] Adan Pierce III, MD [facility] [place] [address] 08/12/2024 12:47:37 08/12/2024 16:50:42 Abnormal uterine bleeding 0631182203 9100 N93.9 Menorrhagia 727722885 N9 2.0 Health Concerns Section Related Observation LastModified by Organization Detai ls LastModified Time None Recorded Concern Status LastModified by Organization Details LastModified Time None Recorded Advance Directives Directive N: Payers Insurance Date Sequence Insurance Name Policy Number Policy Calvillo Covered Member ID Calvillo Member ID Guarantor Name 08/31/2024 1 [place] [id number] Sharee Espinal [id number] Sharee Espinal 02/04/2024 2 [employer] [place] (HMO) Sharee Espinal [id number] Sharee Espinal Notes Date Note Type Note Provider Name and Address Organization Details Recorded Time 07/01/2024 text/html . C/S's. IUD 02/2024. C/o menorrhagia. Bleeding 6-14 days per cycle. hasn't noticed much change with Mirena. Has been seeing cardiology. Diagnosed with Patent Foramen Ovale and POTS. 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 When she gets a migranine she can not remember anything for a certain time frame. She is asking about uterine ablation. Adan Pierce III, MD [address] [place] [address], [phone], [employer]. 07/01/2024 11:39:41 07/15/2024 text/html . C/S's. IUD 02/2024. C/o menorrhagia. Bleeding 6-14 days per cycle. hasn't noticed much change with Mirena. Has been seeing cardiology. Diagnosed with Patent Foramen Ovale and POTS. 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 TVUS today shows IUD in good position. CBC 2 wks ago showed hgb 12.3. She is quite adamant about NOVASURE. We discussed procedure, recovery. The possibility that she would not be able to get preg. afterwards and the fact that it is not consider contraception, discussed. 80 % satisfaction rate reveiwed. I've asked for cardiology clearance. She has an appt with them on 07-23-24. Adan Pierce III, MD [address] [place] [address], [phone], [employer]. 07/15/2024 11:02:50 07/29/2024 text/html . C/S's. IUD 02/2024. C/o menorrhagia. Bleeding 6-14 days per cycle. hasn't noticed much change with Mirena. TVUS showed IUD in good position. CBC 3 wks ago showed hgb 12.3. She is quite adamant about NOVASURE. Has been seeing cardiology. Diagnosed with Patent Foramen Ovale and POTS. Also recently diagnosed with Complex migraines, with loss of vision in left eye (?partial).We have cardiology clearance letter for NOVASURE poss. polypectomy, which we have scheduled for 08-04-24. Procedure , risks, recovery and 80% satisfaction rate reviewed again. Reviewed poss. need to remove a polyp, if it is large, before doing NOVASURE. Adan Pierce III, MD [address] [place] [address], [phone], [employer], [employer]. 07/29/2024 12:07:57 08/06/2024 text/html ROS as noted in the HPI Pt presents to discuss weight loss. She did well with adipex last year and went from 253# to 208# between October and April. She has gained back 29# and is currently 237# with a BMI of 36. She does have a cardiac history and was recently diagnosed with POTS vs. orthostatic hypotension. We discussed given the cardiac history and that she was unable to maintain the weight loss with adipex, we should consider semaglutide. Will send to [facility] Goldstein APRN [address] [place] [address], [phone], [employer] 08/06/2024 12:00:48 08/12/2024 text/html . C/S's. S/p hysteroscopy, D&C, NOVASURE . Path showed benign endometrium, with polyp fragments. Surgery discussed. No complaints. Going to [facility] to have spells evaluated. Adan Pierce III, MD [address] [place] [address], [phone], [employer] 08/12/2024 13:23:28 OBGyn Episode Ob Episode Information Episode Created Date Number of Fetuses Patient Bloodtype Patient rh Status Prepregnancy Weight lbs Domestic Partner Domestic Partner Phone Father Name Pipe Line Walker Status 01/31/20 23 1 CLOSED Fetus Data First Name Last Name Admitted to NICU Weight (g) Sex Living Outcome Pediatric Complications Fetus ID Race Codes Race Delivery Type F Full Term [id number] Caesarian Delivery Rolly Calculation Initial Rolly Date Initial Exam Date Initial Exam Provider Initial Ultrasound Date Last Menstrual Period Date Ultra Sound Weeks Gestation 0 Eighteen To Twenty Week Rolly Update Ultra Sound Date Fundal Height At Umbil Quickening Date Ultra Sound Latest Weeks Gestation Final Rolly Confirmed By Final Rolly Confirmed Date Final Rolly Date Ultra Sound Latest Days Gestation 0 0 Menstrual History Last Menstrual Date Menses Monthly On Bcp Conception Prior Menses Frequency Hcg Plus Date Menarche Onset Age Delivery Information Delivery Date Delivery Type Labor Anesthesia Weeks Gestation Incision Type Labor Labor Length Hrs Delivered By Post Complications Tubal Sterilization Discharge Date Comments 3 39 Discharge Information Feeding Method Contraceptive Method Maternal HG B and HCT Levels Ob Episode Information Episode Created Date Number of Fetuses Patient Bloodtype Patient rh Status Prepregnancy Weight lbs Domestic Partner Domestic Partner Phone Father Name Pipe Line Walker Status 05/17/20 22 1 CLOSED Fetus Data First Name Last Name Admitted to NICU Weight (g) Sex Living Outcome Pediatric Complications Fetus ID Race Codes Race Delivery Type [id number] [id number] M Full Term 1606 Caesarian Delivery Rolly Calculation Initial Rolly Date Initial Exam Date Initial Exam Provider Initial Ultrasound Date Last Menstrual Period Date Ultra Sound Weeks Gestation 0 Eighteen To Twenty Week Rolly Update Ultra Sound Date Fundal Height At Umbil Quickening Date Ultra Sound Latest Weeks Gestation Final Rolly Confirmed By Final Rolly Confirmed Date Final Rolly Date Ultra Sound Latest Days Gestation 0 0 Menstrual History Last Menstrual Date Menses Monthly On Bcp Conception Prior Menses Frequency Hcg Plus Date Menarche Onset Age Delivery Information Delivery Date Delivery Type Labor Anesthesia Weeks Gestation Incision Type Labor Labor Length Hrs Delivered By Post Complications Tubal Sterilization Discharge Date Comments 1 Regional-Ep idural 40 false 24 [facility] Discharge Information Feeding Method Contraceptive Method Maternal HG B and HCT Levels Ob Episode Information Episode Created Date Number of Fetuses Patient Bloodtype Patient rh Status Prepregnancy Weight lbs Domestic Partner Domestic Partner Phone Father Name Pipe Line Walker Status 05/17/20 22 1 A Positive CLOSED Fetus Data First Name Last Name Admitted to NICU Weight (g) Sex Living Outcome Pediatric Complications Fetus ID Race Codes Race Delivery Type Candice n Sexto n false 3203.49 35 F true Full Term 1605 [id number] White Caesarian Delivery Problems Problem Notes 1. . C/S. ROLLY 12-27-22 by LMP and 8 wk usg 2. labs WNL. A+. UDS, cultures negative.3. Survey. Female. Anterior placenta over scar. REcheck at 24 wks. Still there, possible succenturiate lobe. Pelvic rest. To [facility]. [facility] usg WNL.4. Has appts with cardiology and [facility] for tachycardia.5. Glucola wnl.6. RLTCS 12-23-22. Declines BTL. It is scheduled.7. GBS negative. Problem Name Start Date End Date Resolution Snomed Code Not e Headache 07/26/2022 [id number] Tachycardia 08/01/2022 [id number] Anxiety 08/01/2022 [id number] Past history of section 09/05/2022 [id number] Severe obesity complicating 03/20/2021 [id number] Problem Co de: O99.213; Problem Code Type: ICD-10; Rolly Calculation Initial Rolly Date Initial Exam Date Initial Exam Provider Initial Ultrasound Date Last Menstrual Period Date Ultra Sound Weeks Gestation 12/27/2022 05/17/2022 [email or web address] 03/22/2022 0 Eighteen To Twenty Week Rolly Update Ultra Sound Date Fundal Height At Umbil Quickening Date Ultra Sound Latest Weeks Gestation Final Rolly Confirmed By Final Rolly Confirmed Date Final Rolly Date Ultra Sound Latest Days Gestation 0 12/28/19 23 0 Pre-sarita Flowsheet Flowsheet Date 05/17/2022 Parada Score Blood Edema Fundus Height Fundus Units Glucose Ketones Leukocytes Nitrite Labor Signs Protein Cervic Dilation Cervic Effacement Cervic Station none none none neg Type Weight in lbs Pre/Post Dialysis Refused With clothes 251.57863018425 BP Diastolic BP Location Tested BP Systolic BP Type 69 L arm 118 sitting Fetus Heart Rate Present A 174 Present Fetus Movement A No Comments TVUS results reviewed. Flowsheet Date 06/17/2022 Parada Score Blood Edema Fundus Height Fundus Units Glucose Ketones Leukocytes Nitrite Labor Signs Protein Cervic Dilation Cervic Effacement Cervic Station trace none none 1+ Type Weight in lbs Pre/Post Dialysis Refused With clothes 247.178405431275 BP Diastolic BP Location Tested BP Systolic BP Type 70 L arm 122 sitting Fetus Heart Rate Present A 159 Present Fetus Movement A No Comments Early glucola next visit. Annie nts QNATAL. Ordered. Flowsheet Date 07/12/2022 Parada Score Blood Edema Fundus Height Fundus Units Glucose Ketones Leukocytes Nitrite Labor Signs Protein Cervic Dilation Cervic Effacement Cervic Station none 18 cm Other (see comments ) Type Weight in lbs Pre/Post Dialysis Refused With clothes 242.678029671280 BP Diastolic BP Location Tested BP Systolic BP Type 72 L arm 128 sitting Fetus Heart Rate Present A 152 Present Fetus Movement A No Comments Early Glucola next visit. Flowsheet Date 07/26/2022 Parada Score Blood Edema Fundus Height Fundus Units Glucose Ketones Leukocytes Nitrite Labor Signs Protein Cervic Dilation Cervic Effacement Cervic Station trace none Other (see comments ) 1+ Type Weight in lbs Pre/Post Dialysis Refused With clothes 245.821118023098 BP Diastolic BP Location Tested BP Systolic BP Type 76 L arm 136 sitting 62 R arm 102 Fetus Heart Rate Present A 146 Present Fetus Movement A No Comments headaches, metallic taste in mouth Temp 99.1. COVID/Flu negative today. Reports bp's 180's/100's at home. Not all the time. NL bp's here. Check [facility] labs and TSH. Flowsheet Date 08/01/2022 Parada Score Blood Edema Fundus Height Fundus Units Glucose Ketones Leukocytes Nitrite Labor Signs Protein Cervic Dilation Cervic Effacement Cervic Station trace none Other (see comments ) trace Type Weight in lbs Pre/Post Dialysis Refused With clothes 245.213258670508 BP Diastolic BP Location Tested BP Systolic BP Type 80 L arm 134 sitting Fetus Heart Rate Present A 152 Present Fetus Movement A No Comments still having headaches/dizzy spells occasionally. Has increased fluids at home. [facility] labs ok. Still with some elevated bps and racing heartbeat. Almost passing out. H/o anxiety d/o. No meds since preg. To [facility] and cardiology. Flowsheet Date 08/08/2022 Parada Score Blood Edema Fundus Height Fundus Units Glucose Ketones Leukocytes Nitrite Labor Signs Protein Cervic Dilation Cervic Effacement Cervic Station none 21 cm none none trace Type Weight in lbs Pre/Post Dialysis Refused With clothes 249.267815262224 BP Diastolic BP Location Tested BP Systolic BP Type 76 L arm 128 sitting Fetus Heart Rate Present A 159 Present Fetus Movement A No Comments Survey done. Need to f/u to check placentae and scar. Flowsheet Date 09/05/2022 Parada Score Blood Edema Fundus Height Fundus Units Glucose Ketones Leukocytes Nitrite Labor Signs Protein Cervic Dilation Cervic Effacement Cervic Station none 25 cm none Pressure neg Type Weight in lbs Pre/Post Dialysis Refused With clothes 251.49569726138 BP Diastolic BP Location Tested BP Systolic BP Type 72 L arm 122 sitting Fetus Heart Rate Present A 158 Present Fetus Movement A Yes Comments USG done. Poss. Acreta/succe nturiate lobe with previa. Discussed pelvic rest and MFM usg. Flowsheet Date 10/03/2022 Parada Score Blood Edema Fundus Height Fundus Units Glucose Ketones Leukocytes Nitrite Labor Signs Protein Cervic Dilation Cervic Effacement Cervic Station trace 33 cm none none 1+ Type Weight in lbs Pre/Post Dialysis Refused With clothes 254.203190027763 BP Diastolic BP Location Tested BP Systolic BP Type 74 L arm 124 sitting Fetus Heart Rate Present A 134 Present Fetus Movement A Yes Comments MFM usg WNL. Doing glucola. Flowsheet Date 10/17/2022 Parada Score Blood Edema Fundus Height Fundus Units Glucose Ketones Leukocytes Nitrite Labor Signs Protein Cervic Dilation Cervic Effacement Cervic Station trace 35 cm none none trace Type Weight in lbs Pre/Post Dialysis Refused With clothes 255.187449668240 BP Diastolic BP Location Tested BP Systolic BP Type 72 L arm 126 sitting Fetus Heart Rate Present A 138 Present Fetus Movement A Yes Comments Glucola WNL. Has cardiology appt. next week. Flowsheet Date 10/24/2022 Parada Score Blood Edema Fundus Height Fundus Units Glucose Ketones Leukocytes Nitrite Labor Signs Protein Cervic Dilation Cervic Effacement Cervic Station 34 cm Type Weight in lbs Pre/Post Dialysis Refused Weight 255.347200247670 BP Diastolic BP Location Tested BP Systolic BP Type 70 110 Fetus Heart Rate Present Fetus Movement Comments Flowsheet Date 11/04/2022 Parada Score Blood Edema Fundus Height Fundus Units Glucose Ketones Leukocytes Nitrite Labor Signs Protein Cervic Dilation Cervic Effacement Cervic Station none Backpain trace 1cm 10% -3 Type Weight in lbs Pre/Post Dialysis Refused Weight 255.689152803519 BP Diastolic BP Location Tested BP Systolic BP Type 82 L arm 110 sitting Fetus Heart Rate Present A 145 Fetus Movement A Decreased Comments Pt presents with concern for back pain and increased pelvic pressure. No relief with tylenol or baths. She reports she had a 45 min episode last night of painless ramana that self resolved. Denies LOF or VB. 1cm dilated- discussed going to [facility] for r/o PTL. Flowsheet Date 11/14/2022 Parada Score Blood Edema Fundus Height Fundus Units Glucose Ketones Leukocytes Nitrite Labor Signs Protein Cervic Dilation Cervic Effacement Cervic Station trace 37 cm none [place] Abreu neg Type Weight in lbs Pre/Post Dialysis Refused With clothes 254.549635974858 BP Diastolic BP Location Tested BP Systolic BP Type 76 L arm 112 sitting Fetus Heart Rate Present A 150 Present Fetus Movement A Yes Comments Saw cardiology, they release d her. NO meds. Rescheduling appt. with [facility]. Lately hasn't been having her spells. Feels good right now. Wants RTCS 12/20/22. Will try, but likely will be 12-23-22. PTL//SROM precautions. Flowsheet Date 11/22/2022 Parada Score Blood Edema Fundus Height Fundus Units Glucose Ketones Leukocytes Nitrite Labor Signs Protein Cervic Dilation Cervic Effacement Cervic Station none none Pressure neg 1cm 10% - 3 Type Weight in lbs Pre/Post Dialysis Refused Weight 256.065059340050 BP Diastolic BP Location Tested BP Systolic BP Type 72 116 Fetus Heart Rate Present A 135 Fetus Movement A Yes Comments Pt is concerned for pelvic p ressure when urinating. She reports sporadic contractions, but the closest together they have been is q 15 min for 2 hours. She reports she had scant spotting mixed with mucous, but nothing since then. She reports she is drinking plenty of water. No other labor sx. UA neg except for blood, will send culture. Discussed labor precautions. No other complaints or concerns. Flowsheet Date 11/28/2022 Parada Score Blood Edema Fundus Height Fundus Units Glucose Ketones Leukocytes Nitrite Labor Signs Protein Cervic Dilation Cervic Effacement Cervic Station trace 38 cm none Pressure neg 1cm 40% -3 Type Weight in lbs Pre/Post Dialysis Refused With clothes 259.139776285830 BP Diastolic BP Location Tested BP Systolic BP Type 70 L arm 118 sitting Fetus Heart Rate Present A 149 Present Fetus Movement A Yes Comments GBS done. Flowsheet Date 12/05/2022 Parada Score Blood Edema Fundus Height Fundus Units Glucose Ketones Leukocytes Nitrite Labor Signs Protein Cervic Dilation Cervic Effacement Cervic Station trace none Pressure trace Type Weight in lbs Pre/Post Dialysis Refused With clothes 262.118397639080 BP Diastolic BP Location Tested BP Systolic BP Type 74 L arm 126 sitting Fetus Heart Rate Present A 140 Present Fetus Movement A Yes Comments UCx was negative. GBS -. Dis cussed RLTCS. Flowsheet Date 12/26/2022 Parada Score Blood Edema Fundus Height Fundus Units Glucose Ketones Leukocytes Nitrite Labor Signs Protein Cervic Dilation Cervic Effacement Cervic Station Type Weight in lbs Pre/Post Dialysis Refused With clothes 248.120187312749 BP Diastolic BP Location Tested BP Systolic BP Type 72 L arm 120 sitting Fetus Heart Rate Present Fetus Movement Comments Flowsheet Date 01/30/2023 Parada Score Blood Edema Fundus Height Fundus Units Glucose Ketones Leukocytes Nitrite Labor Signs Protein Cervic Dilation Cervic Effacement Cervic Station Type Weight in lbs Pre/Post Dialysis Refused Weight 249.636245067262 BP Diastolic BP Location Tested BP Systolic BP Type 80 120 Fetus Heart Rate Present Fetus Movement Comments Menstrual History Last Menstrual Date Menses Monthly On Bcp Conception Prior Menses Frequency Hcg Plus Date Menarche Onset Age 0903/22/2022 false 03/22/2022 28 Delivery Information Delivery Date Delivery Type Labor Anesthesia Weeks Gestation Incision Type Labor Labor Length Hrs Delivered By Post Complications Tubal Sterilization Discharge Date Comments 3 None Regional-Sp inal 37.6 Low Transvers e Adan Lester MD None false 12/15/2022 Discharge Information Feeding Method Contraceptive Method Maternal HG B and HCT Levels Bottle
--- OUTSIDE RECORDS SUMMARY | 2025-06-15 22:24 | XMS_ITS | Referral Summary ---
Author Organization [facility] ([place], [place], [place], [place], [place]) Address [address] [place] [address] Care Team Providers Care Overlock Elastic Attacher Name Role Phone Seth Grimaldo MD Primary Care Provider [phone] Seth Grimaldo MD Unavailable [phone] Allergies Active Allergy Reactions Criticality Noted Date [...] Folate deficiency 07/08/2024 Syncope 05/24/2024 Pain 01/25/2023 Social History Tobacco Use Types Packs/Day Years [...] your living situation today? I have a [facility] place to live 09/08/2024 Think about [...] Do you speak a language other than [place] at [facility]? No 09/08/2024 Do you want help with [...] 10/06/2024 8:48 AM EDT Plan of Treatment Not on file Procedures Procedure Name Priority Date/Time Associated Diagnosis Comments LIPID PANEL STAT 05/25/2024 6:59 AM EST from Last 3 Months or Most Recently Relevant to Health Maintenance Results * (ABNORMAL) Lipid panel (05/25/2024 6:59 AM EST) Triglycerides 78 0 - 249 mg/dL 05/25/2024 7:52 AM [facility] Cholesterol 134 0 - 199 mg/dL 05/25/2024 7:52 AM [facility] Comment: 200 to 239 mg/dL = Moderate (borderline) >239 mg/dL = High HDL Cholesterol 37(L) >=40 mg/dL 05/25/2024 7:52 AM EST [facility] Comment: >=60 mg/dL = Desirable <40 mg/dL = Increased Risk All other components are listed individually or are calculations VLDL Cholesterol 15.6 5 - 40 mg/dL 05/25/2024 7:52 AM [facility] Cholesterol/HDL ratio 3.6(H) 0.0 - 3.2 05/25/2024 7:52 AM [facility] LDl/HDL Ratio 2 0 - 4 05/25/2024 7:52 AM [facility] RISK COMP 4 05/25/2024 7:52 AM [facility] LDL Cholesterol, Calculated 81 0 - 99 mg/dL 05/25/2024 7:52 AM [facility] Blood Venipuncture / Unknown 05/25/2024 6:59 AM EST 05/25/2024 7:02 AM EST us Nidia Jennings MD LAB BLOOD ORDERABLES Final Resul t [facility] [address] [place] [address] from Last 3 Months or Most Recently Relevant to Health Maintenance Insurance BLUE CROSS/BLUE SHIELD Advance Directives For more information, please contact: [phone] * Full Code (Latest Code Status on File) Date Activated Date Inactivated Comments 09/08/2024 4:21 PM 09/11/2024 1:54 PM * Full Code Date Activated Date Inactivated Comments 05/24/2024 1:50 PM 05/27/2024 3:45 PM * Full Code Date Activated Date Inactivated Comments 01/25/2023 2:47 AM 01/25/2023 6:12 PM Care Teams Overlock Elastic Attacher Relationship Specialty Start Date End Date Seth Grimaldo MD [address] [place], [place] [address] PCP - General Adolescent Medicine 01/27/23 Seth Grimaldo MD [address] [place], [place] [address] Adolescent Medicine 01/27/23
[2025-06-15 22:29] VITALS: BP 128/78; PULSE 71; RESP 18; TEMP 37.1; O2SAT 99
--- NOTE | 2025-06-15 22:34 | CT_ITS ---
PROCEDURE INFORMATION: Exam: CT Abdomen And Pelvis With Contrast Exam date and time: 06/15/2025 11:37 PM Age: 29 years old Clinical indication: Abdominal pain; Additional info: Abdominal pain, bright red blood per rectum TECHNIQUE: Imaging protocol: Computed tomography of the abdomen and pelvis with contrast. Radiation optimization: All CT scans at this facility use at least one of these dose optimization techniques: automated exposure control; mA and/or kV adjustment per patient size (includes targeted exams where dose is matched to clinical indication); or iterative reconstruction. Contrast material: ISOVUE; Contrast volume: 75 ml; Contrast route: IV; COMPARISON: CT ANGIO CHEST PE PROTOCOL 05/21/2024 5:13 PM FINDINGS: Liver: Normal. No mass. Gallbladder and biliary ducts: Cholecystectomy. Pancreas: Normal. No ductal dilation. Spleen: Normal. No splenomegaly. Adrenal glands: Normal. No mass. Kidneys and ureters: Normal. No hydronephrosis. Stomach and bowel: Unremarkable. No obstruction. No mucosal thickening. Appendix: No evidence of appendicitis. Intraperitoneal space: Unremarkable. No free air. No significant fluid collection. Vasculature: Unremarkable. No abdominal aortic aneurysm. Lymph nodes: Unremarkable. No enlarged lymph nodes. Urinary bladder: Unremarkable as visualized. Reproductive: Unremarkable as visualized. Bones/joints: Unremarkable. No acute fracture. Soft tissues: Unremarkable. IMPRESSION: No acute findings.
[2025-06-15 23:05] LABS: Hematocrit 40.4 % (37.0-47.0); Hemoglobin 13.5 g/dL (12.2-16.2); Immature Granulocytes % 0.1 %; Mean Corpuscular HGB Conc 33.4 g/dL (31.8-35.4); Mean Corpuscular Hemoglobin 27.7 pg (27.0-31.2); Mean Corpuscular Volume 82.8 fl (81-99); Nucleated Red Blood Cells % 0 %; Platelet Count 185 K/mm3 (142-424); Red Blood Count 4.88 M/mm3 (4.20-5.40); Red Cell Distribution Width-SD 38.0 fL; White Blood Count 8.7 K/mm3 (4.8-10.8)
[2025-06-15 23:13] LABS: Alanine Aminotransferase 26 U/L (12-78); Albumin Level 4.6 g/dl (3.5-5.0); Albumin/Globulin Ratio 1.6 (1.1-1.8); Alkaline Phosphatase 60 U/L (38-126); Anion Gap 10.7 mEq/L (5-15); Aspartate Amino Transferase 28 U/L (14-36); Bilirubin,Total 0.5 mg/dl (0.2-1.3); Blood Urea Nitrogen 8 mg/dl (7-17); Calcium 8.7 mg/dl (8.4-10.2); Carbon Dioxide 24 mmol/L (22.0-30.0); Chloride 104 mmol/L (98-107); Creatinine Clearance Estimated 221 mL/min (50-200); Creatinine,Serum 0.70 mg/dl (0.52-1.04); Estimated Glomerular Filt Rate 99 ml/min (>60); GFR (African American) 120 ML/MIN (>60); Globulin 2.9 g/dL (1.3-3.2); Glucose 103 mg/dl (74-100); Lipase 67 U/L (23-300); Potassium 3.7 mmoL/L (3.5-5.1); Sodium 135 mmol/L (136-145); Total Protein,Serum 7.5 g/dl (6.3-8.2)
[2025-06-15 23:14] LABS: INR 0.95 (0.9-1.1); Prothrombin Time 10.6 seconds (10.1-12.5)
[2025-06-15 23:34] LABS: HCG Qualitative, Serum Negative (Negative)
[2025-06-15] MEDS: SODIUM CHLORIDE 0.9% 10ML SYR (RAD ONLY) 10 ML IV (23:51)
[2025-06-15] MEDS: IOPAMIDOL-370 (76%);100ML BOTTLE 75 ML IV (23:52)
--- NOTE | 2025-06-16 00:27 | ED_ITS ---
Discharge Plan Disposition Patient Disposition: Home, Self-Care Condition: Good Prescriptions Prescriptions: No Action levothyroxine 75 mcg tablet 75 mcg PO DAILY alprazolam 1 mg tablet 1 mg PO cephalexin 500 mg capsule 500 mg PO QID Qty: 40 0RF ciprofloxacin-dexamethasone 0.3-0.1 % drops,suspension 4 drp otic (ear) BID Qty: 7.5 0RF Referrals Follow up/Referrals: Logan Monsivais II, MD [Staff Physician, Gastroenterology] - See instructions Mahamed Thompson MD [Primary Care Provider, Internal Medicine] - See instructions Activity Restrictions/Add. Instructions Additional Instructions/Restrictions: Please call Dr. Monsivais office for a gastroenterology appointment. If you develop shortness of breath, pale skin, lightheadedness with standing or any other new or worsenig symptoms before follow up with GI please return. Clinical Impressions Clinical Impression: BRBPR (bright red blood per rectum), Generalized abdominal pain Instructions Patient Instructions: DI for Acute Abdominal Pain Print Language Print Language: Guamanian Discharge ED Provider: Joe Luz Adult HPI General Chief complaint: Abdominal Pain Stated complaint: abdominal pain and rectal bleeding Time Seen by Provider: 06/15/25 22:27 Mode of Arrival: Family Vehicle Source of Information: Patient Description of Symptoms (Recalled from ER Triage Doc. by RN): Abd pain Pt presents to the ED with c/o lower abd pain and blood in stool. Pt reports that she had 4 episodes of blood in her stool. She states that she felt pressure and went and sat on the toilet and pooped out blood . Pt showed a pic of bright red blood in the toilet. Pt also c/o abd pain. History of Present Illness HPI narrative: This is a 29-year-old female patient, with past medical history of hemiplegic migraines and postural orthostatic tachycardia syndrome, who is presenting to the emergency department today for evaluation of generalized abdominal pain and bright red blood per rectum. Patient states that today she developed generalized cramping abdominal pain. This evening she got a sudden urge to defecate and only passed blood per rectum. She did not pass any stool components. She states that she has not been sick over the last few days, she specifically denies fever, nausea, vomiting, diarrhea, and melena. No hematochezia. She states that she does not normally experience constipation or hard stools. This has never happened to her before Related Data Home Medications ?Medication ?Instructions ?Recorded ?Confirmed levothyroxine 75 mcg tablet 75 mcg PO DAILY 07/16/22 0 02/02/25 alprazolam 1 mg tablet 1 mg PO 02/02/25 02/02/25 Previous Rx's ?Medication ?Instructions ?Recorded cephalexin 500 mg capsule 500 mg PO QID #40 caps 02/02 ciprofloxacin 0.3 %-dexamethasone 4 drp otic (ear) BID #7.5 mL 02/02/25 0.1 % ear drops,suspension Allergies Allergy/AdvReac Type Severity Reaction Status Date / Time aspirin Allergy Verified 02/02/25 09:37 Sulfa (Sulfonamide Allergy Verified 02/02/25 09:37 Antibiotics) [facility] Disclaimer: The information contained in this section may have been updated after the patient was seen, as this information can be updated by other users. 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 (Updated 06/16/25 @ 00:29 by Joe Luz DO) Impacted cerumen of both ears Hypothyroidism (acquired) Surgical History History of ERCP History of cholecystectomy [place] teeth extracted History of Social History Smoking Status: Never smoker alcohol intake: never substance use type: denies use current occupational status: employed Travel in the last 8 weeks?: None household members: spouse and children housing: house marital status: single Have you lived/traveled outside [place] in past 30 days?: No Contact w/someone who lives/traveled outside [place] past 30 days?: No Exposure to someone with infectious disease in past 14 days?: No Do you have a fever (greater than 100.4 F or 38 C)?: No Have you tested positive for COVID-19?: No Exposed to someone with COVID-19 in past 14 days?: No Do you have a sore throat?: No Do you have a cough?: No Do you have any weakness?: No Do you have any diarrhea?: No Are you experiencing any unusual bleeding?: No Do you have any muscle aches/pain?: No Do you have any abdominal pain?: No Are you experiencing loss of taste or smell?: No Other 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 Have you received the Flu Vaccine for this season: No Have you received the Pneumonia Vaccine: No ROS Obtained: Yes Systems reviewed as appropriate & no additional complaints except as documented Physical Exam General General appearance: other (See MDM) Respiratory Respiratory exam: Present other (See MDM) Cardiovascular Cardiovascular exam: Present other (See MDM) Neurological Exam Neurological exam: Present other (See MDM) Medical Decision Making Medical Records Medical records reviewed: Yes I reviewed the patient's medical records. Screening: Per USPSTF and CDC recommendations, given the prevalence of disease in our region, it is our hospital?s policy to screen for HIV and viral Hepatitis for all patients aged 18 and over and those with ongoing risk factors. Brent Inquiry Pt receiving controlled substance: No Brent was queried for this patient: No Vital Signs: 06/15/25 22:24 06/15/25 22:29 Temperature 98.2 F 98.8 F Temperature Source Oral Oral Pulse Rate 71 Pulse Rate [Right] 88 Respiratory Rate 18 18 Blood Pressure 128/78 Blood Pressure [Right Arm] 136/88 Blood Pressure Mean [Right Arm] 104 Blood Pressure Source [Right Arm] Automatic Cuff Blood Pressure Position [Right Arm] Sitting 02 Sat by Pulse Oximetry 97 99 Oxygen Delivery Method Room Air Room Air Lab Data Lab Results 06/15/25 22:52: WBC 8.7, RBC 4.88, Hgb 13.5, Hct 40.4, MCV 82.8, MCH 27.7, MCHC 33.4, RDW 12.6, Plt Count 185, MPV 11.0 H, Neut % (Auto) 68.9, Lymph % (Auto) 22.8, [place] % (Auto) 6.9, Eos % (Auto) 0.8, Baso % (Auto) 0.5, Neut # (Auto) 6.0, Lymph # (Auto) 2.0, [place] # (Auto) 0.6, Eos # (Auto) 0.1, Baso # (Auto) 0.0, PT 10.6, INR 0.95, Sodium 135 L, Potassium 3.7, Chloride 104, Carbon Dioxide 24, Anion Gap 10.7, BUN 8, Creatinine 0.70, Estimated Creat Clear 221, Estimated GFR 99, Est GFR ( Amer) 120, Glucose 103 H, Calcium 8.7, Total Bilirubin 0.5, AST 28, ALT 26, Alkaline Phosphatase 60, Total Protein 7.5, Albumin 4.6, Globulin 2.9, Albumin/Globulin Ratio 1.6, Lipase 67, Serum HCG, Qual Negative 06/15/25 22:52 06/15/25 22:52 Orders (Tests/Meds): ED MEDICATIONS Discontinued Medications Generic Name Dose Route Start Last Admin Trade Name Gracie PRN Reason Stop Dose Admin Iopamidol 75 ml 06/15/25 23:50 06/15/25 23:52 Iopamidol-370 (76%);100ml Bottle IV 06/15/25 23:51 75 ml ONCE ONE Administration Sodium Chloride 10 ml 06/15/25 23:50 06/15/25 23:51 Sodium Chloride 0.9% 10ml Syr (Rad Only) IV 06/15/25 23:51 10 ml ONCE ONE Administration ORDERS Category Date Time Status CT abdomen pelvis w con Stat Cat Scan 06/15/25 22:34 Completed CBC w/Auto Diff [Complete Blood Count Auto Diff] Stat Lab 06/15/25 22:52 Completed CMP [Comprehensive Metabolic Panel] Stat Lab 06/15/25 22:52 Completed HCG Qualitative, Serum Stat Lab 06/15/25 22:52 Completed Lipase Stat Lab 06/15/25 22:52 Completed PT INR [Prothrombin Time INR] Stat Lab 06/15/25 22:52 Completed Medical Decision Narrative: In summary, this is a 29-year-old female patient who is presenting to the emergency department today for evaluation of bright red blood per rectum that occurred as an isolated episode this evening as well as generalized abdominal pain onset today. Her comorbidities include a history of hemiplegic migraines as well as postural orthostatic tachycardia syndrome. On initial evaluation of the patient they were resting comfortably in no acute distress and nontoxic in appearance. They are hemodynamically stable, saturating well room air, and are neurologically intact. On physical examination her heart lungs clear to auscultation bilaterally. Her abdomen is obese. She does have diffuse generalized abdominal tenderness with no evidence of villa peritonitis. On examination of her external anus she does not have any external hemorrhoids or anal fissures. Differential diagnosis includes internal hemorrhoids, colon mass, angiodysplasia, inflammatory bowel disease, infectious colitis, among other Workup is initiated with hematologic labs as well as a CT scan of the abdomen and pelvis. Patient did not necessitate any medications for pain control. Labs were personally interpreted by me and demonstrate no leukocytosis. Hemoglobin is higher than her prior hemoglobin which is increased from 12.4- 13.5. This suggest against massive blood loss. She has no evidence of coagulopathy as her PT/INR is within normal limits. She has no electrolyte derangements or evidence of acute kidney injury. Serum hCG is normal. CT scan was personally interpreted by me and demonstrates no large pneumoperitoneum. Official radiology read is in agreement states that there is no acute abnormality I informed the patient that her results are normal. We have discussed that this could be hemorrhoidal bleeding versus other colonic abnormalities. I do feel that she needs follow-up with Dr. Monsivais in the GI clinic so I have placed that referral and inform the patient that she must call the clinic to schedule this appointment. I have also informed her that if she becomes fatigued, dyspneic on exertion, lightheaded with standing, or develops pallor that she should return to the emergency department for further evaluation. At this time all questions were answered and all parties were agreeable with the decision to discharge Critical Care Critical Care Time Critical Care Time: No
[2025-06-16 00:32] VITALS: BP 134/78; PULSE 74; RESP 18; TEMP 37.1; O2SAT 98
== END 2025-06-16 00:41 | disposition home or self-care (01) ==
PROVIDERS: Emergency Provider Student in an Organized Health Care Education/Training Program; PCP Family Medicine
DX: R10.84 Generalized abdominal pain (principal); K62.5 Hemorrhage of anus and rectum; Z90.49 Acquired absence of other specified parts of digestive tract
CPT/HCPCS: 74177; 80053; 83690; 84703; 85025; 85610; 99284; 99285; Q9967